=== PATIENT | female | born 1935 | race Two or more races ===

== ENCOUNTER 2018-12-16 06:53 | Inpatient (IN) | payer MEDICAID ==
[~2018-12-16] VITALS: Ht 188 cm; Wt 76.7 kg
[2018-12-16 07:01] VITALS: BP 174/97
[2018-12-16] MEDS ORDERED: TRAMADOL HCL100 M2 ORAL (07:07)
[2018-12-16] MEDS ORDERED: ZOFRAN ODT8 MG ORAL (07:07)
[2018-12-16] MEDS ORDERED: VITAMIN D400 INTLU ORAL (07:07)
[2018-12-16] MEDS ORDERED: BETHANECHOL CHL10 MG ORAL (07:07)
[2018-12-16] MEDS ORDERED: LOSARTAN POTASS50 MG ORAL (07:07)
[2018-12-16] MEDS ORDERED: BACLOFEN5 GM MC (07:07)
[2018-12-16] MEDS ORDERED: LOPERAMIDE2 MG PO (07:07)
[2018-12-16] MEDS ORDERED: AMLODIPINE BESYL5 MG ORAL (07:07)
[2018-12-16] MEDS ORDERED: TAMSULOSIN HCL0.4 MG ORAL (07:07)
--- NOTE | 2018-12-16 07:09 | Emergency Room Report ---
History of Present Illness General Chief Complaint: Dyspnea/Respdistress Source: Family Member Present Illness HPI 83-year-old female with a history of hypertension, type 2 diabetes mellitus, spinal tumors, as well as lower extremity weakness and urinary incontinence and chronic Nicolas catheter, since January 2018, presents with shortness of breath, diarrhea, nausea, vomiting one episode since yesterday, as well as poor by mouth intake and concerns for dehydration by daughter. Patient has no pain complaints, she's not been on recent antibiotics, and her Nicolas catheter was last changed about 2 weeks ago. Patient recently also underwent a cervical spine surgery for decompression of her mass and has had no complications from that, other than a sore throat, and she is already followed up with her surgeon in [place]. Patient denies any new weakness, fevers, chills, cough, and has tried loperamide for diarrhea with partial relief. Allergies: Coded Allergies: No Known Allergies (Unverified , 12/16/18) Patient History Past Medical History: see triage record Reviewed Nursing Documentation: PMH: Agreed; PSxH: Agreed Nursing Documentation-PMH Past Medical History: No Stated History Hx Hypertension: Yes Hx Diabetes: Yes Hx Neurological Problems: Yes - Brain tumor removed Nov 2013 Review of Systems All Other Systems: negative except mentioned in HPI Physical Exam Vital Signs Date Time Temp Pulse Resp B/P (MAP) Pulse Ox O2 Delivery O2 Flow Rate FiO2 12/16/18 06:53 99.1 102 20 174/97 100 Room Air Sp02 EP Interpretation: reviewed, normal General Appearance: no apparent distress, alert, non-toxic Head: normocephalic Eyes: bilateral eye normal inspection, bilateral eye PERRL, bilateral eye EOMI ENT: normal ENT inspection, hearing grossly normal, normal pharynx, no angioedema, normal voice, uvula midline, dry mucus membranes Neck: normal inspection, full range of motion, supple, supple/symm/no masses Respiratory: chest non-tender, lungs clear, normal breath sounds, no rhonchi, no respiratory distress, no retraction, speaking full sentences, chest symmetrical, palpation of chest normal Cardiovascular #1: normal peripheral pulses, regular rate, rhythm, no edema, no gallop, no JVD, no murmur, no rub Cardiovascular #2: 2+ radial (R), 2+ radial (L) Gastrointestinal: normal inspection, non tender, soft, no mass, no guarding, no rebound Rectal: deferred Genitourinary: normal inspection, no CVA tenderness Musculoskeletal: back normal, gait/station normal, normal range of motion, non- tender, no calf tenderness Neurologic: alert, responsive, detention worker III-XII nml as tested, motor strength/tone normal - decreased in B/L LE, sensory intact - decreased in B/L LE, speech normal Psychiatric: judgement/insight normal, memory normal, mood/affect normal Skin: normal color, no rash, warm/dry, normal turgor Lymphatic: no adenopathy Medical Decision Making ER Course Within the first hour of arrival patient had 30 mL per came IV fluid bolus, lactic acid, blood cultures, broad-spectrum gram-negative coverage initiated. At 7:20 AM patient remained here in stable upon repeat focused sepsis examination. She had her previous for catheter discontinued and a new one placed. Urinalysis was sent from the new Nicolas catheter collection bag. Patient is not having active diarrhea here. Workup unremarkable other than UTI and possible pulmonary htn. Patient had nicolas changed, abx (levaquin) given, urine cx sent. Will admit. EKG Diagnostic Results EKG Time: 07:36 EP Interpretation: no stemi Rate: normal Rhythm: NSR ST Segments: no acute changes ASA given to the pt in ED: Yes Rhythm Strip Diag. Results Rhythm Strip Time: 07:18 EP Interpretation: yes Rate: 100 Rhythm: NSR Chest X-Ray Diagnostic Results Chest X-Ray Diagnostic Results : Chest X-Ray Ordered: Yes # of Views/Limited/Complete: 1 View Indication: Shortness of Breath EP Interpretation: Yes Interpretation: no consolidation, no effusion, no pneumothorax, no acute cardiopulmonary disease Impression: No acute disease Electronically Signed by: Carlos Resendiz MD CT/MRI/US Diagnostic Results CT/MRI/US Diagnostic Results : Imaging Test Ordered: chest cta Impression negative for PE, mild atelectasis, no pna or fluid, prominent pulm arteries, concerning for pulm htn Last Vital Signs Date Time Temp Pulse Resp B/P (MAP) Pulse Ox O2 Delivery O2 Flow Rate FiO2 12/16/18 07:01 98.5 103 20 174/97 100 Room Air Disposition: ADMITTED INPATIENT Condition: Stable Referrals: NOT CHOSEN PAWAN/,REFERRING (PCP) CARLOS RESENDIZ M.D Dec 16, 2018 07:09
[2018-12-16 07:41] LABS: BASOPHILS % (AUTO) 2.5 % (0.0-2.0); HEMATOCRIT 34.4 % (37.0-47.0); HEMOGLOBIN 11.2 G/DL (12.0-16.0); LYMPHOCYTES % (AUTO) 35.6 % (20.0-45.0); MEAN CORPUSCULAR VOLUME 96 FL (80-99); PLATELET COUNT 676 K/UL (150-450); RED BLOOD COUNT 3.59 M/UL (4.20-5.40); RED CELL DISTRIBUTION WIDTH 13.6 % (11.6-14.8); WHITE BLOOD COUNT 4.5 K/UL (4.8-10.8)
[2018-12-16 07:43] LABS: APPEARANCE,URINE VERY CLOUDY; BILIRUBIN, URINE NEGATIVE (NEGATIVE); COLOR,URINE PALE YELLOW; GLUCOSE, URINE (UA) NEGATIVE (NEGATIVE); KETONES,URINE 3+ (NEGATIVE); LEUKOCYTE ESTERASE ,URINE 3+ (NEGATIVE); NITRITE,URINE NEGATIVE (NEGATIVE); PH,URINE 9 (4.5-8.0); PROTEIN,URINE 3+ (NEGATIVE); UROBILINOGEN,URINE NORMAL MG/DL (0.0-1.0)
[2018-12-16 08:12] LABS: ANION GAP 10 mmol/L (5-15); BLOOD UREA NITROGEN 12 mg/dL (7-18); CALCIUM 8.8 MG/DL (8.5-10.1); CARBON DIOXIDE 25 MMOL/L (21-32); CHLORIDE 98 MMOL/L (98-107); CREATININE 0.4 MG/DL (0.55-1.30); POTASSIUM 4.7 MMOL/L (3.5-5.1); SODIUM 132 MMOL/L (136-145)
[2018-12-16 08:26] LABS: ALANINE AMINOTRANSFERASE 13 U/L (12-78); ALBUMIN 2.7 G/DL (3.4-5.0); ALBUMIN/GLOBULIN RATIO 0.7 (1.0-2.7); ALKALINE PHOSPHATASE 94 U/L (46-116); ASPARTATE AMINO TRANSFERASE 23 U/L (15-37); BILIRUBIN,TOTAL 0.5 MG/DL (0.2-1.0); CKMB 0.6 NG/ML (0.0-3.6); CREATINE KINASE 51 U/L (26-308)
[2018-12-16 08:33] VITALS: BP 146/71
[2018-12-16] MEDS ORDERED: Isovue-370 150ml vial INJ PRN (08:45)
[2018-12-16] MEDS ORDERED: LORazepam Inj 2mg/ml 1ml IV ONE (09:00)
[2018-12-16 10:32] VITALS: BP 109/49
--- NOTE | 2018-12-16 11:20 | Diagnostic Imaging Report ---
ndication: Shortness of breath Technique: IV administration nonionic contrast. Spiral acquisitions obtained from the lung bases to the lung apices. Multiplanar and 3-D reconstructions were generated. Total dose length product 989.54 mGycm. CTDIvol(s) 30.37,28.48 mGy. Dose reduction achieved using automated exposure control Comparison: none Findings: There is considerable respiratory motion artifact and suboptimal opacification of the distal pulmonary arteries, precluding exclusion of peripheral pulmonary emboli. Prominent right hilar tissue is seen. This is probably extraluminal, but may narrow proximal upper lobe vessels and could conceivably be on the wall of the artery. No definite central large vessel pulmonary emboli are evident otherwise. The main pulmonary artery is dilated, measuring up to 40 mm in diameter. The right and left pulmonary arteries are ectatic but not frankly dilated. The heart is mildly enlarged, but right ventricular dilatation is evident. No thoracic aortic aneurysm or dissection. Normal branching anatomy of the great neck vessels. Lungs demonstrate equivocal mild upper lobe interstitial prominence there is some atelectasis at the lung bases. Evaluation of the lung bases is otherwise limited due to the motion artifact. No effusions. Note dense consolidation. No gross masses. There is minimal pericardial thickening. There is a small to moderate-sized sliding-type hiatal hernia. No mediastinal or hilar mass or adenopathy. There are coronary artery calcifications. The included portion of the thyroid is unremarkable. No axillary or chest wall mass or adenopathy. The included upper abdominal anatomy is unremarkable except for considerable colonic fecal burden Impression: Limited exam, as described, due to respiratory motion and suboptimal contrast bolus No definite evidence of acute pulmonary embolus. Prominent tissue in the right pulmonary hilum appears to slightly narrow the upper lobe pulmonary artery. Suspect that this is extraluminal but all focus of wall adherent chronic pulmonary embolus is not completely excludable. Ectatic borderline dilated pulmonary arteries, raising concern for pulmonary arterial hypertension Borderline cardiomegaly No definite acute pulmonary process, although evaluation for such is limited due to motion artifact. Minimal pericardial thickening. Small to moderate-sized sliding-type hiatal hernia The CT scanner at [facility] is accredited by the [employer] and the scans are performed using protocols designed to limit radiation exposure to as low as reasonably achievable to attain images of sufficient resolution adequate for diagnostic evaluation.
--- NOTE | 2018-12-16 11:49 | Diagnostic Imaging Report ---
Indication: Shortness of breath Technique: One view of the chest Comparison: none Findings: Heart is enlarged. The aorta is tortuous and ectatic. Degenerative changes of both shoulders are noted. The lungs and pleural spaces are clear Impression: No acute process
[2018-12-16] MEDS ORDERED: Albuterol/Ipratropium 3ml neb HHN PRN (12:15)
[2018-12-16] MEDS ORDERED: Miralax 17gm pkt ORAL PRN (12:15)
[2018-12-16] MEDS ORDERED: Morphine Sulfate 4mg/ml Inj (IV/IM USE ONLY) IVP PRN (12:15)
[2018-12-16 13:11] VITALS: BP 134/68
--- NOTE | 2018-12-16 15:19 | Cardiology Report ---
APPROVED REPORT EKG Measurement Heart [id number] DC [id number] Sinus rhythm with premature atrial complexes Left axis deviation Possible Lateral infarct, age undetermined Abnormal ECG
[2018-12-16] MEDS ORDERED: Cefepime HCl 2 GM in D5W 110 ML IV SCH (16:00)
--- NOTE | 2018-12-16 17:21 | History & Physical ---
History and Physical History & Physicial Dictated for Int Med-Dr Olivares no. [id number]. Devin Rojas MD Dec 16, 2018 17:21
--- NOTE | 2018-12-16 20:15 | History and Physical Report ---
DATE OF ADMISSION: 12/16/2018 CHIEF COMPLAINT: The patient is an 83-year-old female, who presents with chief complaint of nausea, constipation and shortness of breath. HISTORY OF PRESENT ILLNESS: The patient was admitted to [facility]. The patient is status post resection of cervical spine tumor on 11/29/2018. The patient states she has been constipated since the 29 of November. The patient then had several days of diarrhea last week. The patient has not had a bowel movement in the last two days. This morning, the patient began to experience shortness of breath. The patient has a history of indwelling Mahajan catheter since August 2018. The patient presents with a chief complaint of shortness of breath, constipation, and nausea. REVIEW OF SYSTEMS: CONSTITUTIONAL: The patient denies weight loss or weight gain. The patient denies fevers or chills. HEENT: The patient denies ear or throat pain. The patient denies headache. CARDIOVASCULAR: The patient denies palpitations or chest pain. CHEST: The patient complains of shortness of breath as above. The patient denies wheezes. ABDOMEN: The patient complains of constipation and nausea. The patient has had alternating constipation and diarrhea. GENITOURINARY: The patient has an indwelling Mahajan catheter. The patient denies dysuria or increased frequency of urination. NEUROMUSCULAR: The patient complains of bilateral lower extremity weakness secondary to cervical spine tumor as above. The patient denies seizures or generalized weakness. PAST MEDICAL HISTORY: Significant for: 1. Cervical spine tumor as above. 2. Diabetes type 2. 3. Hypertension. PAST SURGICAL HISTORY: Significant for resection of cervical spine tumor on 11/29/2018. CURRENT MEDICATIONS: 1. Baclofen 10 mg p.o. daily. 2. Bethanechol 25 mg p.o. three times daily. 3. Amlodipine 5 mg p.o. daily. 4. Losartan 50 mg p.o. daily. 5. Flomax 0.4 mg p.o. daily. ALLERGIES: No known drug allergies. SOCIAL HISTORY: The patient is single and lives with her grown daughter, who is at the bedside. The patient denies tobacco or alcohol use. PHYSICAL EXAMINATION: VITAL SIGNS: Temperature 99.1, respirations 20, pulse 102, and blood pressure 174/97. GENERAL: The patient is a well-developed and well-nourished female, in no apparent distress. HEENT: Eyes, pupils are equal and responsive to light and accommodation. Extraocular movements are intact. NECK: Supple without lymphadenopathy. CHEST: Lungs are clear to auscultation bilaterally without wheezes or rales. CARDIOVASCULAR: Regular rate. S1 and S2 normal without murmurs, rubs, or gallops. ABDOMEN: Soft, slightly distended with decreased bowel sounds. No evidence of hepatosplenomegaly. Currently, no rebound or guarding noted. EXTREMITIES: Negative for clubbing, cyanosis, or edema. RECTAL/GENITAL: Refused. NEUROLOGIC: Cranial nerves II through XII are grossly intact without focal deficits. Motor strength is 5/5 bilaterally. Deep tendon reflexes are 2+ plantar. LABORATORY STUDIES: WBC 4.5, hemoglobin 11.2, hematocrit 34.4, and platelets 676,000. Sodium 132, potassium 4.7, chloride 98, CO2 25, BUN 12, and creatinine 0.4. Glucose 132. Troponin is 0.004. BNP 144. Chest x-ray was reported as no acute disease. CT angio of the chest failed to demonstrate pulmonary embolus. ASSESSMENT: This is an 83-year-old female with: 1. Urinary tract infection. 2. Shortness of breath. 3. Constipation. 4. Nausea. 5. Diabetes. 6. Hypertension. 7. Cervical spine tumor, status post resection. TREATMENT: 1. Urinary tract infection. The patient has been placed empirically on Levaquin, cefepime, and vancomycin. An Infectious Disease consultation has been obtained with Dr. Arndt. Await urine cultures. 2. Constipation/nausea. A Gastroenterology consultation has been obtained with Dr. Mario Addison. A KUB is pending. We will follow recommendations of Gastroenterology. 3. Diabetes. A NovoLog sliding scale has been instituted. 4. Hypertension. Continue losartan and amlodipine as above. 5. Cervical spine tumor. The patient is status post resection on 11/29/2018. Devin Rojas M.D. DR: COURTNEY JOB#: [id number] CC:
[2018-12-16] MEDS: Tamsulosin 0.4mg cap ORAL SCH (20:37)
[2018-12-16] MEDS: Heparin 5000 units/ml inj SUBQ SCH (20:39)
[2018-12-16 21:00] VITALS: BP 142/64
[2018-12-16 23:48] LABS: APPEARANCE,URINE CLEAR; BILIRUBIN, URINE NEGATIVE (NEGATIVE); COLOR,URINE PALE YELLOW; GLUCOSE, URINE (UA) NEGATIVE (NEGATIVE); KETONES,URINE NEGATIVE (NEGATIVE); LEUKOCYTE ESTERASE ,URINE NEGATIVE (NEGATIVE); NITRITE,URINE NEGATIVE (NEGATIVE); PH,URINE 7 (4.5-8.0); PROTEIN,URINE NEGATIVE (NEGATIVE); UROBILINOGEN,URINE NORMAL MG/DL (0.0-1.0)
[2018-12-17] VITALS: BP 138/61
[2018-12-17 04:00] VITALS: BP 118/69
[2018-12-17 07:07] LABS: BASOPHILS % (AUTO) 2.5 % (0.0-2.0); EOSINOPHILS % (AUTO) 2.8 % (0.0-3.0); HEMATOCRIT 30.6 % (37.0-47.0); HEMOGLOBIN 10.2 G/DL (12.0-16.0); LYMPHOCYTES % (AUTO) 29.2 % (20.0-45.0); MEAN CORPUSCULAR VOLUME 96 FL (80-99); MONOCYTES % (AUTO) 9.6 % (1.0-10.0); PLATELET COUNT 701 K/UL (150-450); RED BLOOD COUNT 3.18 M/UL (4.20-5.40); RED CELL DISTRIBUTION WIDTH 14.1 % (11.6-14.8); WHITE BLOOD COUNT 3.7 K/UL (4.8-10.8)
[2018-12-17 07:09] LABS: ALANINE AMINOTRANSFERASE 12 U/L (12-78); ALBUMIN 2.4 G/DL (3.4-5.0); ALBUMIN/GLOBULIN RATIO 0.7 (1.0-2.7); ALKALINE PHOSPHATASE 88 U/L (46-116); ANION GAP 10 mmol/L (5-15); ASPARTATE AMINO TRANSFERASE 13 U/L (15-37); BILIRUBIN,TOTAL 0.4 MG/DL (0.2-1.0); BLOOD UREA NITROGEN 8 mg/dL (7-18); CALCIUM 8.4 MG/DL (8.5-10.1); CARBON DIOXIDE 24 MMOL/L (21-32); CHLORIDE 102 MMOL/L (98-107); CREATININE 0.5 MG/DL (0.55-1.30); POTASSIUM 3.7 MMOL/L (3.5-5.1); SODIUM 136 MMOL/L (136-145)
--- NOTE | 2018-12-17 07:55 | Consultation ---
History of Present Illness General Date patient seen: Dec 17, 2018 Chief Complaint: Dyspnea/Respdistress Reason for Consultation: UTI Present Illness HPI Ms Garcia is a 83 yo female with PMHx of DM, HTN and a Cervical spinal tumor s/p resection 11/29/18 who presented to the ED on 12/16/18 with SOB, nausea and constipation. She appentely had not had a BM for 2 days but did yesterday after admit. She also reports having diarrhea a week ago. She is incontinent of urine and feces has a chronic indwelling nicolas catheter. Her SOB started yesterday morning. She also problems with Diabetes medications and some weakness and syncope. Unclear if she had low blood sugar. She reports no fever, Chills, abdominal pain or bleeding. In the ED she had a negative CXR, CTA chest and was aferbile without any leukocytosis. Her UA was positive witn 20-30 WBCs and LE. Neck pain from surgery controlled. ID was consulted for UTI PMHx/PSHx DM HTN Cervical spinal tumor s/p resection 11/29/18 SocHx No E/T/D FamHx Not contributory Allergies: Coded Allergies: No Known Allergies (Unverified , 12/16/18) Medication History Scheduled Amlodipine Besylate* (Amlodipine Besylate*), 5 MG ORAL DAILY, (Reported) Bethanechol* (Bethanechol*), 25 MG ORAL THREE TIMES A DAY, (Reported) Losartan Potassium* (Losartan Potassium*), 50 MG ORAL DAILY, (Reported) Tamsulosin Hcl (Tamsulosin Hcl*), 0.4 MG ORAL BEDTIME, (Reported) Tramadol Hcl (Tramadol Hcl), 50 MG ORAL DAILY, (Reported) Vitamin D (Vitamin D3), 1,000 UNITS ORAL DAILY, (Reported) Scheduled PRN Ondansetron Odt* (Zofran Odt*), 4 MG ORAL Q6H PRN for Nausea & Vomiting, ( Reported) Miscellaneous Medications Baclofen (Baclofen), 10 GM MC, (Reported) Loperamide Hcl (Loperamide), 2 MG PO, (Reported) Patient History Healthcare decision maker Resuscitation status Advanced Directive on File Review of Systems ROS Narrative 12 point ROS negative except as note in the HPI. Physical Exam Last 24 Hour Vital Signs Date Time Temp Pulse Resp B/P (MAP) Pulse Ox O2 Delivery O2 Flow Rate FiO2 12/17/18 04:00 98.8 96 17 118/69 (85) 99 96 12/17/18 04:00 96 12/17/18 00:00 95 12/17/18 00:00 98.6 77 18 138/61 (86) 96 77 12/16/18 21:00 99.1 72 17 142/64 (90) 98 72 12/16/18 21:00 Nasal Cannula 2.0 12/16/18 20:00 98 12/16/18 17:18 98.2 88 20 127/62 100 Nasal Cannula 1.0 12/16/18 16:00 91 12/16/18 14:49 Nasal Cannula 2.0 12/16/18 14:47 91 12/16/18 13:11 98.3 82 20 134/68 100 Nasal Cannula 1.0 12/16/18 10:32 98.8 96 16 109/49 100 Nasal Cannula 1.0 12/16/18 08:33 98.8 97 24 146/71 100 Room Air Intake and Output 12/16/18 12/17/18 18:59 06:59 Intake Total 2700 ml 515 ml Output Total 1600 ml 1200 ml Balance 1100 ml -685 ml Intake Oral 250 ml 140 ml IV Total 2450 ml 375 ml Output Urine Total 1600 ml 1200 ml # Bowel Movements 1 Laboratory Tests Test 12/16/18 22:00 12/17/18 06:14 Urine Color Pale yellow Urine Appearance Clear Urine pH 7 (4.5-8.0) Urine Specific [place] 1.005 (1.005-1.035) Urine Protein Negative (NEGATIVE) Urine Glucose (UA) Negative (NEGATIVE) Urine Ketones Negative (NEGATIVE) Urine Blood Negative (NEGATIVE) Urine Nitrite Negative (NEGATIVE) Urine Bilirubin Negative (NEGATIVE) Urine Urobilinogen Normal MG/DL (0.0-1.0) Urine Leukocyte Esterase Negative (NEGATIVE) Urine RBC 0-2 /HPF (0 - 2) Urine WBC 0-2 /HPF (0 - 2) Urine Squamous Epithelial Cells Few /LPF (NONE/OCC) Urine Bacteria None /HPF (NONE) White Blood Count 3.7 K/UL (4.8-10.8) L Red Blood Count 3.18 M/UL (4.20-5.40) L Hemoglobin 10.2 G/DL (12.0-16.0) L Hematocrit 30.6 % (37.0-47.0) L Mean Corpuscular Volume 96 FL (80-99) Mean Corpuscular Hemoglobin 32.0 PG (27.0-31.0) H Mean Corpuscular Hemoglobin Concent 33.3 G/DL (32.0-36.0) Red Cell Distribution Width 14.1 % (11.6-14.8) Platelet Count 701 K/UL (150-450) H Mean Platelet Volume 3.9 FL (6.5-10.1) L Neutrophils (%) (Auto) 56.0 % (45.0-75.0) Lymphocytes (%) (Auto) 29.2 % (20.0-45.0) Monocytes (%) (Auto) 9.6 % (1.0-10.0) Eosinophils (%) (Auto) 2.8 % (0.0-3.0) Basophils (%) (Auto) 2.5 % (0.0-2.0) H Sodium Level 136 MMOL/L (136-145) Potassium Level 3.7 MMOL/L (3.5-5.1) Chloride Level 102 MMOL/L (98-107) Carbon Dioxide Level 24 MMOL/L (21-32) Anion Gap 10 mmol/L (5-15) Blood Urea Nitrogen 8 mg/dL (7-18) Creatinine 0.5 MG/DL (0.55-1.30) L Estimat Glomerular Filtration Rate mL/min (>60) Glucose Level 113 MG/DL (74-106) H Calcium Level 8.4 MG/DL (8.5-10.1) L Total Bilirubin 0.4 MG/DL (0.2-1.0) Aspartate Amino Transf (AST/SGOT) 13 U/L (15-37) L Alanine Aminotransferase (ALT/SGPT) 12 U/L (12-78) Alkaline Phosphatase 88 U/L (46-116) Total Protein 5.7 G/DL (6.4-8.2) L Albumin 2.4 G/DL (3.4-5.0) L Globulin 3.3 g/dL Albumin/Globulin Ratio 0.7 (1.0-2.7) L Height (Feet): 5 Height (Inches): 2.00 Weight (Pounds): 170 Medications Current Medications Medications (Trade) Dose Ordered Sig/Luda Route PRN Reason Start Time Stop Time Status Last Admin Dose Admin Acetaminophen (Tylenol) 650 mg Q4H PRN ORAL fever (temp>100.5F) 12/16/18 12:15 01/15/19 12:14 Al Hydroxide/Mg Hydroxide (Mylanta) 15 ml Q6H PRN ORAL Abdominal cramps 12/16/18 22:15 01/15/19 22:14 12/16/18 22:40 Albuterol/ Ipratropium (Albuterol/ Ipratropium) 3 ml Q4H PRN HHN Shortness of Breath 12/16/18 12:15 12/21/18 12:14 Amlodipine Besylate (Norvasc) 5 mg DAILY ORAL 12/17/18 09:00 01/16/19 08:59 Cefepime HCl 2 gm/ Dextrose 110 ml @ 220 mls/hr Q24H IV 12/16/18 16:00 12/23/18 15:59 12/16/18 17:52 Heparin Sodium (Porcine) (Heparin 5000 units/ml) 5,000 units EVERY 12 HOURS SUBQ 12/16/18 21:00 01/15/19 20:59 12/16/18 20:39 Losartan Potassium (Cozaar) 50 mg DAILY ORAL 12/17/18 09:00 01/16/19 08:59 Morphine Sulfate (Morphine Sulfate) 2 mg Q4H PRN IVP Moderate Pain (Pain Scale 4-6) 12/16/18 12:15 12/23/18 12:14 Ondansetron HCl (Zofran) 4 mg Q6H PRN IVP Nausea & Vomiting 12/16/18 12:15 01/15/19 12:14 Pantoprazole (Protonix) 40 mg DAILY ORAL 12/16/18 22:15 01/15/19 22:14 12/16/18 22:40 Phenazopyridine HCl (Pyridium) 100 mg DAILYPRN PRN ORAL dysuria 12/16/18 12:15 01/15/19 12:14 Polyethylene Glycol (Miralax) 17 gm DAILYPRN PRN ORAL Constipation 12/16/18 12:15 01/15/19 12:14 Sodium Chloride 1,000 ml @ 75 mls/hr [id number] IV 12/16/18 17:30 01/15/19 17:29 12/17/18 05:35 Tamsulosin HCl (Flomax) 0.4 mg BEDTIME ORAL 12/16/18 21:00 01/15/19 20:59 12/16/18 20:37 Temazepam (Restoril) 15 mg HSPRN PRN ORAL Insomnia 12/16/18 12:15 12/23/18 12:14 12/16/18 20:43 Vancomycin HCl (Vanco rx to dose) 1 ea DAILY PRN MISC PER PHARMACY 12/16/18 14:00 01/15/19 13:59 Vancomycin HCl 1 gm/Dextrose 275 ml @ 183.3 mls/ hr Q24H IVPB 12/17/18 18:00 12/22/18 17:59 Objective Narrative Gen: NAD, well appearing, alert HEENT: NCAT, MMM, EOMI, PERRL, No Oral lesion, no scleral icterus, Neck surgical site C/D/I NECK: full range of motion, supple, no meningismus, No LAD, No JVD LUNGS: CTAB, No W/C, No Accessory muscle use CARDS: RRR, S1, S2, No M/R/G, ABD: Soft, NT, ND, No R/G, + BS, No HSM, No Masses : nicolas in place Ext: C/C/E, Pulses 2+ B/L (DP, Rad): NEURO: A/O x 4, Strength and Sensation Grossly intact PSYCH: Mood/affect normal SKIN: Warm/dry, No rashes Assessment/Plan Assessment/Plan 83 yo female with PMHx of DM, HTN and a 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 UTI UA (+) some weakness and presyncope Likely from blood sugar but given Positive UA will treat for UTI. Indwelling nicolas changed in the ED UCx Pending No Leukocytosis No fever Incontinent Intermittent Constipation/diarrhea Had BM yesterday DM HTN Plan - Start Ceftriaxone #1 - 12/17/18 SP Cefepime #1 and Vancomycin #1 - Monitor CBC and temps - f/u Cultures Thank you for this consult. We will continue to follow the patient during this hospitalization. Mark Lozano MD Dec 17, 2018 07:55
[2018-12-17 08:00] VITALS: BP 161/94
[2018-12-17] MEDS: Heparin 5000 units/ml inj SUBQ SCH ×2 (08:32→21:03)
[2018-12-17] MEDS ORDERED: Losartan 50mg tab ORAL SCH (09:00)
--- NOTE | 2018-12-17 10:58 | GI Initial Consult Note ---
History of Present Illness General Date patient seen: Dec 17, 2018 Time patient seen: 10:52 Reason for Hospitalization: Dyspnea/Respdistress Referring physician: JOVITA NAILS Reason for Consultation: Nausea / Diarrhea Present Illness HPI 83-year-old female with a history of hypertension, type 2 diabetes mellitus, spinal tumors, as well as lower extremity weakness and urinary incontinence and chronic Mahajan catheter, since January 2018, presents with shortness of breath, diarrhea, nausea, vomiting one episode since yesterday, as well as poor by mouth intake and concerns for dehydration by daughter. Patient has no pain complaints, she's not been on recent antibiotics, and her Mahajan catheter was last changed about 2 weeks ago. Patient recently also underwent a cervical spine surgery for decompression of her mass and has had no complications from that, other than a sore throat, and she is already followed up with her surgeon in [place]. Patient denies any new weakness, fevers, chills, cough, and has tried loperamide for diarrhea with partial relief. GI consulted for reports of nausea and diarrhea. Patient seen, awake alert and oriented x4 no apparent distress with daughter at bedside. The family reported that the patient had approximately 1 week of diarrhea, denied any hematochezia or melena and states that it has resolved at this. The patient underwent cervical spine surgery approximately 1 week ago, had complaint of nausea with vomiting most likely due to postoperative nature. Denies any hemataemesis or coffee-ground. Patient reported one formed BMs today. Patient states she has a history of endoscopic colonoscopy approximately 2 years ago, unsure of the results at this time. Labs reviewed, patient presents today with normocytic anemia. Home Meds Reported Medications Loperamide Hcl (LOPERAMIDE) 2 Mg Capsule, 2 MG PO, CAP 12/16/18 Tamsulosin Hcl (TAMSULOSIN HCL*) 0.4 Mg Cap.er.24h, 0.4 MG ORAL BEDTIME, CAP 12/16/18 Baclofen (BACLOFEN) 5 Gm Powder, 10 GM MC, GM 12/16/18 Amlodipine Besylate* (AMLODIPINE BESYLATE*) 5 Mg Tablet, 5 MG ORAL DAILY, TAB 12/16/18 Losartan Potassium* (LOSARTAN POTASSIUM*) 50 Mg Tablet, 50 MG ORAL DAILY, TAB 12/16/18 Tramadol Hcl (TRAMADOL HCL) 100 Mg Tab.er.24h, 50 MG ORAL DAILY, TAB 12/16/18 Bethanechol* (BETHANECHOL*) 10 Mg Tablet, 25 MG ORAL THREE TIMES A DAY, TAB 12/16/18 Ondansetron Odt* (ZOFRAN ODT*) 8 Mg Tab.rapdis, 4 MG ORAL Q6H PRN for Nausea & Vomiting, #30 TAB 12/16/18 Vitamin D (Vitamin D3) 400 Unit Tablet, 1000 UNITS ORAL DAILY, TAB 12/16/18 Med list reviewed/reconciled: Yes Allergies: Coded Allergies: No Known Allergies (Unverified , 12/16/18) Patient History PMH Narrative Past Medical History: see triage record Reviewed Nursing Documentation: PMH: Agreed; PSxH: Agreed Nursing Documentation-PMH Past Medical History: No Stated History Hx Hypertension: Yes Hx Diabetes: Yes Hx Neurological Problems: Yes - Brain tumor removed Nov 2013 Social History: Denies: smoking, alcohol use, drug use, other Review of Systems All Other Systems: negative except mentioned in HPI Physical Exam Vital Signs Date Time Temp Pulse Resp B/P (MAP) Pulse Ox O2 Delivery O2 Flow Rate FiO2 12/16/18 06:53 99.1 102 20 174/97 100 Room Air 12/16/18 10:32 1.0 Sp02 EP Interpretation: reviewed, normal Labs Laboratory Tests Test 12/16/18 22:00 12/17/18 06:14 Urine Color Pale yellow Urine Appearance Clear Urine pH 7 (4.5-8.0) Urine Specific [place] 1.005 (1.005-1.035) Urine Protein Negative (NEGATIVE) Urine Glucose (UA) Negative (NEGATIVE) Urine Ketones Negative (NEGATIVE) Urine Blood Negative (NEGATIVE) Urine Nitrite Negative (NEGATIVE) Urine Bilirubin Negative (NEGATIVE) Urine Urobilinogen Normal MG/DL (0.0-1.0) Urine Leukocyte Esterase Negative (NEGATIVE) Urine RBC 0-2 /HPF (0 - 2) Urine WBC 0-2 /HPF (0 - 2) Urine Squamous Epithelial Cells Few /LPF (NONE/OCC) Urine Bacteria None /HPF (NONE) White Blood Count 3.7 K/UL (4.8-10.8) L Red Blood Count 3.18 M/UL (4.20-5.40) L Hemoglobin 10.2 G/DL (12.0-16.0) L Hematocrit 30.6 % (37.0-47.0) L Mean Corpuscular Volume 96 FL (80-99) Mean Corpuscular Hemoglobin 32.0 PG (27.0-31.0) H Mean Corpuscular Hemoglobin Concent 33.3 G/DL (32.0-36.0) Red Cell Distribution Width 14.1 % (11.6-14.8) Platelet Count 701 K/UL (150-450) H Mean Platelet Volume 3.9 FL (6.5-10.1) L Neutrophils (%) (Auto) 56.0 % (45.0-75.0) Lymphocytes (%) (Auto) 29.2 % (20.0-45.0) Monocytes (%) (Auto) 9.6 % (1.0-10.0) Eosinophils (%) (Auto) 2.8 % (0.0-3.0) Basophils (%) (Auto) 2.5 % (0.0-2.0) H Sodium Level 136 MMOL/L (136-145) Potassium Level 3.7 MMOL/L (3.5-5.1) Chloride Level 102 MMOL/L (98-107) Carbon Dioxide Level 24 MMOL/L (21-32) Anion Gap 10 mmol/L (5-15) Blood Urea Nitrogen 8 mg/dL (7-18) Creatinine 0.5 MG/DL (0.55-1.30) L Estimat Glomerular Filtration Rate mL/min (>60) Glucose Level 113 MG/DL (74-106) H Calcium Level 8.4 MG/DL (8.5-10.1) L Total Bilirubin 0.4 MG/DL (0.2-1.0) Aspartate Amino Transf (AST/SGOT) 13 U/L (15-37) L Alanine Aminotransferase (ALT/SGPT) 12 U/L (12-78) Alkaline Phosphatase 88 U/L (46-116) Total Protein 5.7 G/DL (6.4-8.2) L Albumin 2.4 G/DL (3.4-5.0) L Globulin 3.3 g/dL Albumin/Globulin Ratio 0.7 (1.0-2.7) L General Appearance: well appearing, no apparent distress, alert Head: normocephalic EENT: PERRL/EOMI, normal ENT inspection Neck: supple Respiratory: normal breath sounds, no respiratory distress Cardiovascular: normal rate Gastrointestinal: normal inspection, non tender, soft, normal bowel sounds, non -distended Rectal: deferred Genitourinary: no CVA tenderness Musculoskeletal: normal inspection, back normal Neurologic: normal inspection, alert, oriented x3, responsive Psychiatric: normal inspection, judgement/insight normal, memory normal Skin: normal inspection, normal color, no rash, warm/dry, palpation normal, well hydrated Lymphatic: normal inspection, no adenopathy Current Medications Current Medications Medications (Trade) Dose Ordered Sig/Luda Route PRN Reason Start Time Stop Time Status Last Admin Dose Admin Acetaminophen (Tylenol) 650 mg Q4H PRN ORAL fever (temp>100.5F) 12/16/18 12:15 01/15/19 12:14 Al Hydroxide/Mg Hydroxide (Mylanta) 15 ml Q6H PRN ORAL Abdominal cramps 12/16/18 22:15 01/15/19 22:14 12/16/18 22:40 Albuterol/ Ipratropium (Albuterol/ Ipratropium) 3 ml Q4H PRN HHN Shortness of Breath 12/16/18 12:15 12/21/18 12:14 Amlodipine Besylate (Norvasc) 5 mg DAILY ORAL 12/17/18 09:00 01/16/19 08:59 12/17/18 08:28 Docusate Sodium (Colace) 100 mg THREE TIMES A DAY ORAL 12/17/18 13:00 01/16/19 12:59 Heparin Sodium (Porcine) (Heparin 5000 units/ml) 5,000 units EVERY 12 HOURS SUBQ 12/16/18 21:00 01/15/19 20:59 12/17/18 08:32 Losartan Potassium (Cozaar) 50 mg DAILY ORAL 12/17/18 09:00 01/16/19 08:59 12/17/18 08:28 Morphine Sulfate (Morphine Sulfate) 2 mg Q4H PRN IVP Moderate Pain (Pain Scale 4-6) 12/16/18 12:15 12/23/18 12:14 Ondansetron HCl (Zofran) 4 mg Q6H PRN IVP Nausea & Vomiting 12/16/18 12:15 01/15/19 12:14 2/1/19 10:01 Pantoprazole (Protonix) 40 mg DAILY ORAL 12/16/18 22:15 01/15/19 22:14 12/17/18 08:28 Phenazopyridine HCl (Pyridium) 100 mg DAILYPRN PRN ORAL dysuria 12/16/18 12:15 01/15/19 12:14 Polyethylene Glycol (Miralax) 17 gm BEDTIME ORAL 12/17/18 21:00 01/16/19 20:59 Polyethylene Glycol (Miralax) 17 gm DAILYPRN PRN ORAL Constipation 12/16/18 12:15 01/15/19 12:14 Sodium Chloride 1,000 ml @ 75 mls/hr [id number] IV 12/16/18 17:30 01/15/19 17:29 12/17/18 05:35 Tamsulosin HCl (Flomax) 0.4 mg BEDTIME ORAL 12/16/18 21:00 01/15/19 20:59 12/16/18 20:37 Temazepam (Restoril) 15 mg HSPRN PRN ORAL Insomnia 12/16/18 12:15 12/23/18 12:14 12/16/18 20:43 GI: Plan Problems: (1) Normocytic anemia (2) Nausea (3) Dehydration (4) Electrolyte imbalance (5) Diarrhea Plan We will send for stool studies, C. difficile to rule out infectious colitis. Okay to advance diet as tolerated Zofran as needed P.o. IV hydration plus electrolyte correction anemia work up OB stool r/o GI bleed monitor H&H, prn transfusions bowel regime >> MiraLAX as needed ppi fu labs Will consider endoscopy if necessary Discussed with Dr. Addison. Thank you for this patient referral, we will follow. The patient was seen and examined at bedside and all new and available data was reviewed in the patients chart. I agree with the above findings, impression and plan. (Patient seen earlier today. Signature stamp does not reflect patient encounter time.). - MD Yaritza Holman,[facility] [employer] Dec 17, 2018 10:58
[2018-12-17] MEDS ORDERED: Miralax 17gm pkt ORAL PRN (11:00)
[2018-12-17 12:00] VITALS: BP 118/73
--- NOTE | 2018-12-17 12:11 | Consultation ---
History of Present Illness General Date patient seen: Dec 17, 2018 Chief Complaint: Dyspnea/Respdistress Referring physician: JOVITA NAILS Reason for Consultation: Nausea / Diarrhea Present Illness HPI 83 yo female with PMHx of DM, HTN and a Cervical spinal tumor s/p recent resection presented to the ED with CC of SOB. Her SOB started yesterday morning. She reports no fever, hills, abdominal pain or bleeding. In the ED she had a negative CXR, and CTA chest was negative for PE. She also reports having diarrhea a week ago. She is incontinent of urine has a chronic indwelling Mahajan catheter. Allergies: Coded Allergies: No Known Allergies (Unverified , 12/16/18) Medication History Scheduled Amlodipine Besylate* (Amlodipine Besylate*), 5 MG ORAL DAILY, (Reported) Bethanechol* (Bethanechol*), 25 MG ORAL THREE TIMES A DAY, (Reported) Losartan Potassium* (Losartan Potassium*), 50 MG ORAL DAILY, (Reported) Tamsulosin Hcl (Tamsulosin Hcl*), 0.4 MG ORAL BEDTIME, (Reported) Tramadol Hcl (Tramadol Hcl), 50 MG ORAL DAILY, (Reported) Vitamin D (Vitamin D3), 1,000 UNITS ORAL DAILY, (Reported) Scheduled PRN Ondansetron Odt* (Zofran Odt*), 4 MG ORAL Q6H PRN for Nausea & Vomiting, ( Reported) Miscellaneous Medications Baclofen (Baclofen), 10 GM MC, (Reported) Loperamide Hcl (Loperamide), 2 MG PO, (Reported) Patient History Healthcare decision maker Resuscitation status Advanced Directive on File Past Medical/Surgical History Past Medical/Surgical History: (1) Diabetes mellitus (2) HTN (hypertension) (3) Obesity (4) Incontinence Review of Systems All Other Systems: negative except mentioned in HPI Physical Exam General Appearance: WD/WN Lines, tubes and drains: peripheral HEENT: normocephalic, atraumatic Neck: non-tender, normal alignment Respiratory/Chest: chest wall non-tender, lungs clear Breasts: no masses Cardiovascular/Chest: normal peripheral pulses Abdomen: normal bowel sounds, non tender Genitourinary/Rectal: normal genital exam Extremities: normal range of motion Skin Exam: normal pigmentation Neurologic: heat treat worker II-XII grossly normal Last 24 Hour Vital Signs Date Time Temp Pulse Resp B/P (MAP) Pulse Ox O2 Delivery O2 Flow Rate FiO2 12/17/18 09:00 Nasal Cannula 2.0 12/17/18 08:28 161/94 12/17/18 08:28 116 161/94 12/17/18 08:00 97.7 116 17 161/94 (116) 99 96 12/17/18 08:00 100 12/17/18 04:00 98.8 96 17 118/69 (85) 99 96 12/17/18 04:00 96 12/17/18 00:00 95 12/17/18 00:00 98.6 77 18 138/61 (86) 96 77 12/16/18 21:00 99.1 72 17 142/64 (90) 98 72 12/16/18 21:00 Nasal Cannula 2.0 12/16/18 20:00 98 12/16/18 17:18 98.2 88 20 127/62 100 Nasal Cannula 1.0 12/16/18 16:00 91 12/16/18 14:49 Nasal Cannula 2.0 12/16/18 14:47 91 12/16/18 13:11 98.3 82 20 134/68 100 Nasal Cannula 1.0 Intake and Output 12/16/18 12/17/18 19:00 07:00 Intake Total 2700 ml 515 ml Output Total 1600 ml 1200 ml Balance 1100 ml -685 ml Intake Oral 250 ml 140 ml IV Total 2450 ml 375 ml Output Urine Total 1600 ml 1200 ml # Bowel Movements 1 Laboratory Tests Test 12/16/18 22:00 12/17/18 06:14 Urine Color Pale yellow Urine Appearance Clear Urine pH 7 (4.5-8.0) Urine Specific [place] 1.005 (1.005-1.035) Urine Protein Negative (NEGATIVE) Urine Glucose (UA) Negative (NEGATIVE) Urine Ketones Negative (NEGATIVE) Urine Blood Negative (NEGATIVE) Urine Nitrite Negative (NEGATIVE) Urine Bilirubin Negative (NEGATIVE) Urine Urobilinogen Normal MG/DL (0.0-1.0) Urine Leukocyte Esterase Negative (NEGATIVE) Urine RBC 0-2 /HPF (0 - 2) Urine WBC 0-2 /HPF (0 - 2) Urine Squamous Epithelial Cells Few /LPF (NONE/OCC) Urine Bacteria None /HPF (NONE) White Blood Count 3.7 K/UL (4.8-10.8) L Red Blood Count 3.18 M/UL (4.20-5.40) L Hemoglobin 10.2 G/DL (12.0-16.0) L Hematocrit 30.6 % (37.0-47.0) L Mean Corpuscular Volume 96 FL (80-99) Mean Corpuscular Hemoglobin 32.0 PG (27.0-31.0) H Mean Corpuscular Hemoglobin Concent 33.3 G/DL (32.0-36.0) Red Cell Distribution Width 14.1 % (11.6-14.8) Platelet Count 701 K/UL (150-450) H Mean Platelet Volume 3.9 FL (6.5-10.1) L Neutrophils (%) (Auto) 56.0 % (45.0-75.0) Lymphocytes (%) (Auto) 29.2 % (20.0-45.0) Monocytes (%) (Auto) 9.6 % (1.0-10.0) Eosinophils (%) (Auto) 2.8 % (0.0-3.0) Basophils (%) (Auto) 2.5 % (0.0-2.0) H Sodium Level 136 MMOL/L (136-145) Potassium Level 3.7 MMOL/L (3.5-5.1) Chloride Level 102 MMOL/L (98-107) Carbon Dioxide Level 24 MMOL/L (21-32) Anion Gap 10 mmol/L (5-15) Blood Urea Nitrogen 8 mg/dL (7-18) Creatinine 0.5 MG/DL (0.55-1.30) L Estimat Glomerular Filtration Rate mL/min (>60) Glucose Level 113 MG/DL (74-106) H Calcium Level 8.4 MG/DL (8.5-10.1) L Total Bilirubin 0.4 MG/DL (0.2-1.0) Aspartate Amino Transf (AST/SGOT) 13 U/L (15-37) L Alanine Aminotransferase (ALT/SGPT) 12 U/L (12-78) Alkaline Phosphatase 88 U/L (46-116) Total Protein 5.7 G/DL (6.4-8.2) L Albumin 2.4 G/DL (3.4-5.0) L Globulin 3.3 g/dL Albumin/Globulin Ratio 0.7 (1.0-2.7) L Height (Feet): 5 Height (Inches): 2.00 Weight (Pounds): 170 Medications Current Medications Medications (Trade) Dose Ordered Sig/Luda Route PRN Reason Start Time Stop Time Status Last Admin Dose Admin Acetaminophen (Tylenol) 650 mg Q4H PRN ORAL fever (temp>100.5F) 12/16/18 12:15 01/15/19 12:14 Al Hydroxide/Mg Hydroxide (Mylanta) 15 ml Q6H PRN ORAL Abdominal cramps 12/16/18 22:15 01/15/19 22:14 12/16/18 22:40 Albuterol/ Ipratropium (Albuterol/ Ipratropium) 3 ml Q4H PRN HHN Shortness of Breath 12/16/18 12:15 12/21/18 12:14 Amlodipine Besylate (Norvasc) 5 mg DAILY ORAL 12/17/18 09:00 01/16/19 08:59 12/17/18 08:28 Heparin Sodium (Porcine) (Heparin 5000 units/ml) 5,000 units EVERY 12 HOURS SUBQ 12/16/18 21:00 01/15/19 20:59 12/17/18 08:32 Losartan Potassium (Cozaar) 50 mg DAILY ORAL 12/17/18 09:00 01/16/19 08:59 12/17/18 08:28 Morphine Sulfate (Morphine Sulfate) 2 mg Q4H PRN IVP Moderate Pain (Pain Scale 4-6) 12/16/18 12:15 12/23/18 12:14 Ondansetron HCl (Zofran) 4 mg Q6H PRN IVP Nausea & Vomiting 12/16/18 12:15 01/15/19 12:14 12/17/18 10:01 Pantoprazole (Protonix) 40 mg DAILY ORAL 12/16/18 22:15 01/15/19 22:14 12/17/18 08:28 Phenazopyridine HCl (Pyridium) 100 mg DAILYPRN PRN ORAL dysuria 12/16/18 12:15 01/15/19 12:14 Polyethylene Glycol (Miralax) 17 gm DAILYPRN PRN ORAL Constipation 12/17/18 11:00 01/16/19 10:59 Sodium Chloride 1,000 ml @ 75 mls/hr [id number] IV 12/16/18 17:30 01/15/19 17:29 12/17/18 05:35 Tamsulosin HCl (Flomax) 0.4 mg BEDTIME ORAL 12/16/18 21:00 01/15/19 20:59 12/16/18 20:37 Temazepam (Restoril) 15 mg HSPRN PRN ORAL Insomnia 12/16/18 12:15 12/23/18 12:14 12/16/18 20:43 Assessment/Plan Problem List: (1) Dyspnea ICD Codes: R06.00 - Dyspnea, unspecified SNOMED: 672506460 (2) Sepsis ICD Codes: A41.9 - Sepsis, unspecified organism SNOMED: 80899424 (3) Incontinence ICD Codes: R32 - Unspecified urinary incontinence SNOMED: 98876933 (4) Diabetes mellitus ICD Codes: E11.9 - Type 2 diabetes mellitus without complications SNOMED: 10668560 (5) Normocytic anemia ICD Codes: D64.9 - Anemia, unspecified SNOMED: 418664510 (6) HTN (hypertension) ICD Codes: I10 - Essential (primary) hypertension SNOMED: 25160411 (7) Obesity ICD Codes: E66.9 - Obesity, unspecified SNOMED: 540856281, 249505573 Assessment/Plan respiratory treatment check urine cultures monitor BP sliding scale diabetic diet Anival Tolentino MD Dec 17, 2018 12:11
[2018-12-17] MEDS ORDERED: Docusate 100mg cap ORAL SCH (13:00)
--- NOTE | 2018-12-17 14:33 | Internal Med Progress Note ---
Subjective Physician Name Douglas Olivares Attending Physician Douglas Olivares MD Current Medications Medications (Trade) Dose Ordered Sig/Luda Route PRN Reason Start Time Stop Time Status Last Admin Dose Admin Acetaminophen (Tylenol) 650 mg Q4H PRN ORAL fever (temp>100.5F) 12/16/18 12:15 01/15/19 12:14 12/17/18 13:38 Al Hydroxide/Mg Hydroxide (Mylanta) 15 ml Q6H PRN ORAL Abdominal cramps 12/16/18 22:15 01/15/19 22:14 12/16/18 22:40 Albuterol/ Ipratropium (Albuterol/ Ipratropium) 3 ml Q4H PRN HHN Shortness of Breath 12/16/18 12:15 12/21/18 12:14 Amlodipine Besylate (Norvasc) 5 mg DAILY ORAL 12/17/18 09:00 01/16/19 08:59 12/17/18 08:28 Heparin Sodium (Porcine) (Heparin 5000 units/ml) 5,000 units EVERY 12 HOURS SUBQ 12/16/18 21:00 01/15/19 20:59 12/17/18 08:32 Losartan Potassium (Cozaar) 50 mg DAILY ORAL 12/17/18 09:00 01/16/19 08:59 12/17/18 08:28 Ondansetron HCl (Zofran) 4 mg Q6H PRN IVP Nausea & Vomiting 12/16/18 12:15 01/15/19 12:14 12/17/18 10:01 Pantoprazole (Protonix) 40 mg DAILY ORAL 12/16/18 22:15 01/15/19 22:14 12/17/18 08:28 Phenazopyridine HCl (Pyridium) 100 mg DAILYPRN PRN ORAL dysuria 12/16/18 12:15 01/15/19 12:14 Polyethylene Glycol (Miralax) 17 gm DAILYPRN PRN ORAL Constipation 12/17/18 11:00 01/16/19 10:59 Tamsulosin HCl (Flomax) 0.4 mg BEDTIME ORAL 12/16/18 21:00 01/15/19 20:59 12/16/18 20:37 Temazepam (Restoril) 15 mg HSPRN PRN ORAL Insomnia 12/16/18 12:15 12/23/18 12:14 12/16/18 20:43 Allergies: Coded Allergies: No Known Allergies (Unverified , 12/16/18) Subjective awake, alert, responsive, C/O diarrhea, No CP, less SOB Objective Last Vital Signs Date Time Temp Pulse Resp B/P (MAP) Pulse Ox O2 Delivery O2 Flow Rate FiO2 12/17/18 12:00 99.2 97 17 118/73 (88) 100 97 12/17/18 09:00 Nasal Cannula 2.0 Laboratory Tests Test 12/16/18 22:00 12/17/18 06:14 Urine Color Pale yellow Urine Appearance Clear Urine pH 7 (4.5-8.0) Urine Specific [place] 1.005 (1.005-1.035) Urine Protein Negative (NEGATIVE) Urine Glucose (UA) Negative (NEGATIVE) Urine Ketones Negative (NEGATIVE) Urine Blood Negative (NEGATIVE) Urine Nitrite Negative (NEGATIVE) Urine Bilirubin Negative (NEGATIVE) Urine Urobilinogen Normal MG/DL (0.0-1.0) Urine Leukocyte Esterase Negative (NEGATIVE) Urine RBC 0-2 /HPF (0 - 2) Urine WBC 0-2 /HPF (0 - 2) Urine Squamous Epithelial Cells Few /LPF (NONE/OCC) Urine Bacteria None /HPF (NONE) White Blood Count 3.7 K/UL (4.8-10.8) L Red Blood Count 3.18 M/UL (4.20-5.40) L Hemoglobin 10.2 G/DL (12.0-16.0) L Hematocrit 30.6 % (37.0-47.0) L Mean Corpuscular Volume 96 FL (80-99) Mean Corpuscular Hemoglobin 32.0 PG (27.0-31.0) H Mean Corpuscular Hemoglobin Concent 33.3 G/DL (32.0-36.0) Red Cell Distribution Width 14.1 % (11.6-14.8) Platelet Count 701 K/UL (150-450) H Mean Platelet Volume 3.9 FL (6.5-10.1) L Neutrophils (%) (Auto) 56.0 % (45.0-75.0) Lymphocytes (%) (Auto) 29.2 % (20.0-45.0) Monocytes (%) (Auto) 9.6 % (1.0-10.0) Eosinophils (%) (Auto) 2.8 % (0.0-3.0) Basophils (%) (Auto) 2.5 % (0.0-2.0) H Sodium Level 136 MMOL/L (136-145) Potassium Level 3.7 MMOL/L (3.5-5.1) Chloride Level 102 MMOL/L (98-107) Carbon Dioxide Level 24 MMOL/L (21-32) Anion Gap 10 mmol/L (5-15) Blood Urea Nitrogen 8 mg/dL (7-18) Creatinine 0.5 MG/DL (0.55-1.30) L Estimat Glomerular Filtration Rate mL/min (>60) Glucose Level 113 MG/DL (74-106) H Hemoglobin A1c 6.5 % (4.3-6.0) H Calcium Level 8.4 MG/DL (8.5-10.1) L Total Bilirubin 0.4 MG/DL (0.2-1.0) Aspartate Amino Transf (AST/SGOT) 13 U/L (15-37) L Alanine Aminotransferase (ALT/SGPT) 12 U/L (12-78) Alkaline Phosphatase 88 U/L (46-116) Total Protein 5.7 G/DL (6.4-8.2) L Albumin 2.4 G/DL (3.4-5.0) L Globulin 3.3 g/dL Albumin/Globulin Ratio 0.7 (1.0-2.7) L Microbiology Date/Time Source Procedure Growth Status 12/16/18 07:25 Blood Blood Culture - Preliminary NO GROWTH AFTER 24 HOURS Resulted 12/16/18 07:40 Nasal Nares Influenza Types A,B Antigen (GERALDINE) - Final Complete 12/16/18 07:35 Indwelling Cath Urine Culture - Preliminary Gram Negative Bacillus 1 Resulted Intake and Output 12/16/18 12/17/18 19:00 07:00 Intake Total 2700 ml 515 ml Output Total 1600 ml 1200 ml Balance 1100 ml -685 ml Intake Oral 250 ml 140 ml IV Total 2450 ml 375 ml Output Urine Total 1600 ml 1200 ml # Bowel Movements 1 Objective General: No acute distress, awake and alert HEENT: NCAT, sclera anicteric, PERRL, EOMI. Neck: Supple, no significant jugular venous distention, Lungs: Good inspiratory effort, , clear to auscultation bilaterally, no Wheeze or Rales, mild obesity. Heart: Regular rate and rhythm, normal S1/S2, no murmur Abdomen: soft, nontender, nondistended. Normoactive bowel sounds. / Rectal: Refused and deferred. Extremities: No Cyanosis , clubbing or edema. Neuro: A&O x 3, Able to move all extremities Skin: warm, no rashes or lesions Psych: Normal mood and affect Assessment/Plan Assessment/Plan (1) Normocytic anemia (2) Nausea (3) Dehydration (4) Electrolyte imbalance (5) Diarrhea R/O C. diff (6) DM 2 (7) HTN (8) Cervical spine Tumor. Plan We will send for stool studies, C. difficile to rule out infectious colitis. Okay to advance diet as tolerated Zofran as needed DC Colace discuss with family at bedside Monitor Labs Off abx. Douglas Olivares MD Dec 17, 2018 14:33
[2018-12-17 16:00] VITALS: BP 125/64
[2018-12-17] MEDS ORDERED: Vancomycin 1 GM in D5W 275 ML IVPB SCH (18:00)
[2018-12-17 20:00] VITALS: BP 148/82
[2018-12-17] MEDS ORDERED: Miralax 17gm pkt ORAL SCH (21:00)
[2018-12-17] MEDS: Tamsulosin 0.4mg cap ORAL SCH (21:02)
[2018-12-18] VITALS (8 sets, daily range): BP systolic 122–144; BP diastolic 60–92
[2018-12-18] MEDS ORDERED: Albuterol/Ipratropium 3ml neb HHN PRN (04:15)
[2018-12-18 06:46] LABS: BASOPHILS % (AUTO) 1.7 % (0.0-2.0); EOSINOPHILS % (AUTO) 2.5 % (0.0-3.0); HEMATOCRIT 29.1 % (37.0-47.0); HEMOGLOBIN 9.7 G/DL (12.0-16.0); LYMPHOCYTES % (AUTO) 23.4 % (20.0-45.0); MEAN CORPUSCULAR VOLUME 96 FL (80-99); NEUTROPHILS % (AUTO) 65.4 % (45.0-75.0); PLATELET COUNT 646 K/UL (150-450); RED BLOOD COUNT 3.04 M/UL (4.20-5.40); WHITE BLOOD COUNT 4.4 K/UL (4.8-10.8)
[2018-12-18 06:53] LABS: INR 1.1 (0.9-1.1)
[2018-12-18 07:26] LABS: % IRON SATURATION 16 % (15-50); IRON 24 ug/dL (50-175); TOTAL IRON BINDING CAPACITY 151 ug/dL (250-450)
[2018-12-18 07:30] LABS: ALANINE AMINOTRANSFERASE 11 U/L (12-78); ALBUMIN 2.3 G/DL (3.4-5.0); ALBUMIN/GLOBULIN RATIO 0.7 (1.0-2.7); ALKALINE PHOSPHATASE 80 U/L (46-116); ANION GAP 8 mmol/L (5-15); ASPARTATE AMINO TRANSFERASE 11 U/L (15-37); BILIRUBIN,TOTAL 0.2 MG/DL (0.2-1.0); BLOOD UREA NITROGEN 9 mg/dL (7-18); CALCIUM 7.9 MG/DL (8.5-10.1); CARBON DIOXIDE 26 MMOL/L (21-32); CHLORIDE 103 MMOL/L (98-107); CREATININE 0.7 MG/DL (0.55-1.30); FERRITIN 59 NG/ML (8-388); POTASSIUM 3.4 MMOL/L (3.5-5.1); SODIUM 137 MMOL/L (136-145)
--- NOTE | 2018-12-18 08:23 | General Progress Note ---
Assessment/Plan Problem List: (1) Sepsis ICD Codes: A41.9 - Sepsis, unspecified organism SNOMED: 04380766 (2) HTN (hypertension) ICD Codes: I10 - Essential (primary) hypertension SNOMED: 81963961 (3) Diabetes mellitus ICD Codes: E11.9 - Type 2 diabetes mellitus without complications SNOMED: 79752418 (4) Normocytic anemia ICD Codes: D64.9 - Anemia, unspecified SNOMED: 924422226 Assessment/Plan anemia work up in progress fu stool ob GI procedures if needed DM control abx fu labs Subjective ROS Limited/Unobtainable: Yes Allergies: Coded Allergies: No Known Allergies (Unverified , 12/16/18) Subjective c/o neck pain Objective Last 24 Hour Vital Signs Date Time Temp Pulse Resp B/P (MAP) Pulse Ox O2 Delivery O2 Flow Rate FiO2 12/18/18 04:01 98.7 105 18 144/80 (101) 100 105 12/18/18 00:13 98.2 102 19 138/68 (91) 98 100 12/17/18 21:00 Nasal Cannula 2.0 12/17/18 20:00 98.3 100 19 148/82 (104) 98 100 12/17/18 16:00 99.1 101 18 125/64 (84) 98 101 12/17/18 12:00 99.2 97 17 118/73 (88) 100 97 12/17/18 12:00 99 12/17/18 09:00 Nasal Cannula 2.0 12/17/18 08:28 161/94 12/17/18 08:28 116 161/94 Intake and Output 12/17/18 12/18/18 18:59 06:59 Intake Total 240 ml 602 ml Output Total 800 ml Balance 240 ml -198 ml Intake Oral 240 ml 602 ml Output Urine Total 800 ml # Voids 2 # Bowel Movements 3 2 Laboratory Tests 12/17/18 14:15: Stool Occult Blood [Pending] 12/18/18 04:50: White Blood Count 4.4L, Red Blood Count 3.04L, Hemoglobin 9.7L, Hematocrit 29.1L , Mean Corpuscular Volume 96, Mean Corpuscular Hemoglobin 31.8H, Mean Corpuscular Hemoglobin Concent 33.3, Red Cell Distribution Width 13.0, Platelet Count 646H, Mean Platelet Volume 3.8L, Neutrophils (%) (Auto) 65.4, Lymphocytes (%) (Auto) 23.4, Monocytes (%) (Auto) 7.0, Eosinophils (%) (Auto) 2.5, Basophils (%) (Auto) 1.7, Reticulocyte Count [Pending], Prothrombin Time 11.2, Prothromb Time International Ratio 1.1, Activated Partial Thromboplast Time 33, Sodium Level 137, Potassium Level 3.4L, Chloride Level 103, Carbon Dioxide Level 26, Anion Gap 8, Blood Urea Nitrogen 9, Creatinine 0.7, Estimat Glomerular Filtration Rate , Glucose Level 129H, Calcium Level 7.9L, Iron Level 24L, Total Iron Binding Capacity 151L, Percent Iron Saturation 16, Unsaturated Iron Binding 127, Ferritin 59, Total Bilirubin 0.2, Aspartate Amino Transf (AST/ SGOT) 11L, Alanine Aminotransferase (ALT/SGPT) 11L, Alkaline Phosphatase 80, Total Protein 5.5L, Albumin 2.3L, Globulin 3.2, Albumin/Globulin Ratio 0.7L, Carcinoembryonic Antigen [Pending], Vitamin B12 Level 643, Folate 11.1, Thyroid Stimulating Hormone (TSH) 1.468, Free Thyroxine 1.09 Height (Feet): 5 Height (Inches): 2.00 Weight (Pounds): 170 General Appearance: alert EENT: normal ENT inspection Neck: supple Cardiovascular: normal rate Respiratory/Chest: lungs clear Abdomen: normal bowel sounds, non tender, soft Extremities: non-tender Mario Addison MD Dec 18, 2018 08:23
[2018-12-18] MEDS: Heparin 5000 units/ml inj SUBQ SCH ×2 (08:27→21:01)
[2018-12-18] MEDS: Losartan 50mg tab ORAL SCH (08:29)
--- NOTE | 2018-12-18 10:03 | Pulmonology Progress Note ---
Assessment/Plan Assessment/Plan ASSESSMENT Probable sepsis ( on admission leukopenia, low grade fever, evidence of infection) UTI with Pseudomonas and GNB Shortness of breath Dehydration Tachycardia History of spinal tumor , status post recent resection Anemia of chronic disease Electrolyte imbalances Diabetes mellitus Hypertension Diarrhea /stool C dif negative PLAN OF CARE [facility] floor start IVF monitor renal parameters and electrolytes, correct electrolytes as needed , avoid nephrotoxic O2 titrate to keep pulse ox above 92%, HHN prn CTA of the chest no acute PE , but chronic pulmonary emboli not completely excluded. check venous duplex BLE DVT prophylaxis consider VQ scan if tachycardia not resolved with IVF ( CTA not completely excluded chronic emboli, consistent SOB, hx of tumor, mild elevation in D dimer ) stool C. difficile negative blood culture prel negative , urine culture with Pseudomonas and GNB abx as per ID recs BP management with ARB and optimize further as needed BS management with SSRI , hemoglobin A1c 6.5 -at goal monitor H&H with goal to keep hemoglobin above 7 anemia workup consistent with anemia of chronic disease stool OB and CEA pending GI follows symptomatic care pain management case discussed and evaluated by supervising physician Subjective Allergies: Coded Allergies: No Known Allergies (Unverified , 12/16/18) Subjective patient c/o being tired, generalized weakness no CP, no SOB family at the bedside Objective Last 24 Hour Vital Signs Date Time Temp Pulse Resp B/P (MAP) Pulse Ox O2 Delivery O2 Flow Rate FiO2 12/18/18 08:29 138/64 12/18/18 08:28 116 138/64 12/18/18 04:01 98.7 105 18 144/80 (101) 100 105 12/18/18 00:13 98.2 102 19 138/68 (91) 98 100 12/17/18 21:00 Nasal Cannula 2.0 12/17/18 20:00 98.3 100 19 148/82 (104) 98 100 12/17/18 16:00 99.1 101 18 125/64 (84) 98 101 12/17/18 12:00 99.2 97 17 118/73 (88) 100 97 12/17/18 12:00 99 Intake and Output 12/17/18 12/18/18 18:59 06:59 Intake Total 240 ml 602 ml Output Total 800 ml Balance 240 ml -198 ml Intake Oral 240 ml 602 ml Output Urine Total 800 ml # Voids 2 # Bowel Movements 3 2 Objective General Appearance: no acute distress HEENT: normocephalic, atraumatic, anicteric, mucous membranes moist Respiratory/Chest: lungs clear, no respiratory distress, no accessory muscle use Cardiovascular: normal peripheral pulses, normal rate, no JVD Abdomen: normal bowel sounds, soft, non tender Extremities: no edema Neurologic/Psychiatric: abnormal gait, alert, responsive Musculoskeletal: atrophy - BLE Microbiology Date/Time Source Procedure Growth Status 12/16/18 07:25 Blood Blood Culture - Preliminary NO GROWTH AFTER 24 HOURS Resulted 12/16/18 07:40 Nasal Nares Influenza Types A,B Antigen (GERALDINE) - Final Complete 12/17/18 14:15 Stool Clostridium difficile Toxin Assay - Final Complete 12/16/18 07:35 Indwelling Cath Urine Culture - Preliminary Pseudomonas Aeruginosa Gram Negative Bacillus 2 Resulted Laboratory Tests 12/17/18 14:15: Stool Occult Blood [Pending] 12/18/18 04:50: White Blood Count 4.4L, Red Blood Count 3.04L, Hemoglobin 9.7L, Hematocrit 29.1L , Mean Corpuscular Volume 96, Mean Corpuscular Hemoglobin 31.8H, Mean Corpuscular Hemoglobin Concent 33.3, Red Cell Distribution Width 13.0, Platelet Count 646H, Mean Platelet Volume 3.8L, Neutrophils (%) (Auto) 65.4, Lymphocytes (%) (Auto) 23.4, Monocytes (%) (Auto) 7.0, Eosinophils (%) (Auto) 2.5, Basophils (%) (Auto) 1.7, Reticulocyte Count [Pending], Prothrombin Time 11.2, Prothromb Time International Ratio 1.1, Activated Partial Thromboplast Time 33, Sodium Level 137, Potassium Level 3.4L, Chloride Level 103, Carbon Dioxide Level 26, Anion Gap 8, Blood Urea Nitrogen 9, Creatinine 0.7, Estimat Glomerular Filtration Rate , Glucose Level 129H, Calcium Level 7.9L, Iron Level 24L, Total Iron Binding Capacity 151L, Percent Iron Saturation 16, Unsaturated Iron Binding 127, Ferritin 59, Total Bilirubin 0.2, Aspartate Amino Transf (AST/ SGOT) 11L, Alanine Aminotransferase (ALT/SGPT) 11L, Alkaline Phosphatase 80, Total Protein 5.5L, Albumin 2.3L, Globulin 3.2, Albumin/Globulin Ratio 0.7L, Carcinoembryonic Antigen [Pending], Vitamin B12 Level 643, Folate 11.1, Thyroid Stimulating Hormone (TSH) 1.468, Free Thyroxine 1.09 Current Medications Medications (Trade) Dose Ordered Sig/Luda Route PRN Reason Start Time Stop Time Status Last Admin Dose Admin Acetaminophen (Tylenol) 650 mg Q4H PRN ORAL fever (temp>100.5F) 12/18/18 04:15 01/15/19 12:14 12/18/18 08:31 Al Hydroxide/Mg Hydroxide (Mylanta) 15 ml Q6H PRN ORAL Abdominal cramps 12/18/18 04:15 01/15/19 22:14 Albuterol/ Ipratropium (Albuterol/ Ipratropium) 3 ml Q4H PRN HHN Shortness of Breath 12/18/18 04:15 12/21/18 12:14 Amlodipine Besylate (Norvasc) 5 mg DAILY ORAL 12/18/18 09:00 01/16/19 08:59 12/18/18 08:28 Heparin Sodium (Porcine) (Heparin 5000 units/ml) 5,000 units EVERY 12 HOURS SUBQ 12/18/18 09:00 01/15/19 20:59 12/18/18 08:27 Losartan Potassium (Cozaar) 50 mg DAILY ORAL 12/18/18 09:00 01/16/19 08:59 Ondansetron HCl (Zofran) 4 mg Q6H PRN IVP Nausea & Vomiting 12/18/18 06:15 01/15/19 12:14 Pantoprazole (Protonix) 40 mg DAILY ORAL 12/18/18 09:00 01/15/19 22:14 12/18/18 08:28 Phenazopyridine HCl (Pyridium) 100 mg DAILYPRN PRN ORAL dysuria 12/18/18 12:15 01/15/19 12:14 Polyethylene Glycol (Miralax) 17 gm DAILYPRN PRN ORAL Constipation 12/18/18 11:00 01/16/19 10:59 Tamsulosin HCl (Flomax) 0.4 mg BEDTIME ORAL 12/18/18 21:00 01/15/19 20:59 Temazepam (Restoril) 15 mg HSPRN PRN ORAL Insomnia 12/18/18 12:15 12/23/18 12:14 Lupe Fong NP Dec 18, 2018 10:03
[2018-12-18] MEDS ORDERED: Miralax 17gm pkt ORAL PRN (11:00)
[2018-12-18] MEDS: NS w/KCl 20mEq 1,000 ML IV SCH (12:31)
--- NOTE | 2018-12-18 15:39 | Internal Med Progress Note ---
Subjective Date of Service: Dec 18, 2018 Physician Name Devin Rojas Attending Physician Douglas Olivares MD Current Medications Medications (Trade) Dose Ordered Sig/Luda Route PRN Reason Start Time Stop Time Status Last Admin Dose Admin Acetaminophen (Tylenol) 650 mg Q4H PRN ORAL fever (temp>100.5F) 12/18/18 04:15 01/15/19 12:14 12/18/18 08:31 Al Hydroxide/Mg Hydroxide (Mylanta) 15 ml Q6H PRN ORAL Abdominal cramps 12/18/18 04:15 01/15/19 22:14 Albuterol/ Ipratropium (Albuterol/ Ipratropium) 3 ml Q4H PRN HHN Shortness of Breath 12/18/18 04:15 12/21/18 12:14 Amlodipine Besylate (Norvasc) 5 mg DAILY ORAL 12/18/18 09:00 01/16/19 08:59 12/18/18 08:28 Heparin Sodium (Porcine) (Heparin 5000 units/ml) 5,000 units EVERY 12 HOURS SUBQ 12/18/18 09:00 01/15/19 20:59 12/18/18 08:27 Losartan Potassium (Cozaar) 50 mg DAILY ORAL 12/18/18 09:00 01/16/19 08:59 Ondansetron HCl (Zofran) 4 mg Q6H PRN IVP Nausea & Vomiting 12/18/18 06:15 01/15/19 12:14 Pantoprazole (Protonix) 40 mg DAILY ORAL 12/18/18 09:00 01/15/19 22:14 12/18/18 08:28 Phenazopyridine HCl (Pyridium) 100 mg DAILYPRN PRN ORAL dysuria 12/18/18 12:15 01/15/19 12:14 Polyethylene Glycol (Miralax) 17 gm DAILYPRN PRN ORAL Constipation 12/18/18 11:00 01/16/19 10:59 Sodium Chloride 1,000 ml @ 75 mls/hr [id number] IV 12/18/18 11:00 01/17/19 10:59 12/18/18 12:31 Tamsulosin HCl (Flomax) 0.4 mg BEDTIME ORAL 12/18/18 21:00 01/15/19 20:59 Temazepam (Restoril) 15 mg HSPRN PRN ORAL Insomnia 12/18/18 12:15 12/23/18 12:14 Allergies: Coded Allergies: No Known Allergies (Unverified , 12/16/18) ROS Limited/Unobtainable: No Constitutional: Reports: no symptoms HEENT: Reports: no symptoms Cardiovascular: Reports: no symptoms Respiratory: Reports: no symptoms Gastrointestinal/Abdominal: Reports: no symptoms Genitourinary: Reports: no symptoms Neurologic/Psychiatric: Reports: no symptoms Subjective 83 YO F admitted with shortness of breath. Now UTI. Cover for Int Huan-Dr Olivares Objective Last Vital Signs Date Time Temp Pulse Resp B/P (MAP) Pulse Ox O2 Delivery O2 Flow Rate FiO2 12/18/18 12:00 97.3 106 20 135/92 (106) 100 77 12/18/18 09:00 Room Air 12/17/18 21:00 2.0 General Appearance: WD/WN, no apparent distress, alert EENT: PERRL/EOMI, normal ENT inspection, TMs normal Neck: non-tender, normal alignment, supple Cardiovascular: normal peripheral pulses, normal rate, regular rhythm, no gallop/murmur, no JVD Respiratory/Chest: chest wall non-tender, lungs clear, normal breath sounds, no respiratory distress, no accessory muscle use Abdomen: normal bowel sounds, non tender, soft, no organomegaly, no mass Extremities: normal range of motion Neurologic: nursing consultant II-XII grossly normal, no motor/sensory deficits Skin: normal pigmentation, warm/dry Laboratory Tests Test 12/18/18 04:50 White Blood Count 4.4 K/UL (4.8-10.8) L Red Blood Count 3.04 M/UL (4.20-5.40) L Hemoglobin 9.7 G/DL (12.0-16.0) L Hematocrit 29.1 % (37.0-47.0) L Mean Corpuscular Volume 96 FL (80-99) Mean Corpuscular Hemoglobin 31.8 PG (27.0-31.0) H Mean Corpuscular Hemoglobin Concent 33.3 G/DL (32.0-36.0) Red Cell Distribution Width 13.0 % (11.6-14.8) Platelet Count 646 K/UL (150-450) H Mean Platelet Volume 3.8 FL (6.5-10.1) L Neutrophils (%) (Auto) 65.4 % (45.0-75.0) Lymphocytes (%) (Auto) 23.4 % (20.0-45.0) Monocytes (%) (Auto) 7.0 % (1.0-10.0) Eosinophils (%) (Auto) 2.5 % (0.0-3.0) Basophils (%) (Auto) 1.7 % (0.0-2.0) Reticulocyte Count 1.6 % (0.0-2.0) Prothrombin Time 11.2 SEC (9.30-11.50) Prothromb Time International Ratio 1.1 (0.9-1.1) Activated Partial Thromboplast Time 33 SEC (23-33) Sodium Level 137 MMOL/L (136-145) Potassium Level 3.4 MMOL/L (3.5-5.1) L Chloride Level 103 MMOL/L (98-107) Carbon Dioxide Level 26 MMOL/L (21-32) Anion Gap 8 mmol/L (5-15) Blood Urea Nitrogen 9 mg/dL (7-18) Creatinine 0.7 MG/DL (0.55-1.30) Estimat Glomerular Filtration Rate mL/min (>60) Glucose Level 129 MG/DL (74-106) H Calcium Level 7.9 MG/DL (8.5-10.1) L Iron Level 24 ug/dL (50-175) L Total Iron Binding Capacity 151 ug/dL (250-450) L Percent Iron Saturation 16 % (15-50) Unsaturated Iron Binding 127 ug/dL (112-346) Ferritin 59 NG/ML (8-388) Total Bilirubin 0.2 MG/DL (0.2-1.0) Aspartate Amino Transf (AST/SGOT) 11 U/L (15-37) L Alanine Aminotransferase (ALT/SGPT) 11 U/L (12-78) L Alkaline Phosphatase 80 U/L (46-116) Total Protein 5.5 G/DL (6.4-8.2) L Albumin 2.3 G/DL (3.4-5.0) L Globulin 3.2 g/dL Albumin/Globulin Ratio 0.7 (1.0-2.7) L Carcinoembryonic Antigen Pending Vitamin B12 Level 643 PG/ML (193-986) Folate 11.1 NG/ML (8.6-58.9) Thyroid Stimulating Hormone (TSH) 1.468 uiU/mL (0.358-3.740) Free Thyroxine 1.09 NG/DL (0.76-1.46) Microbiology Date/Time Source Procedure Growth Status 12/16/18 07:25 Blood Blood Culture - Preliminary NO GROWTH AFTER 24 HOURS Resulted 12/16/18 07:40 Nasal Nares Influenza Types A,B Antigen (GERALDINE) - Final Complete 12/17/18 14:15 Stool Clostridium difficile Toxin Assay - Final Complete 12/16/18 07:35 Indwelling Cath Urine Culture - Preliminary Pseudomonas Aeruginosa Gram Negative Bacillus 2 Resulted Intake and Output 12/17/18 12/18/18 19:00 07:00 Intake Total 240 ml 602 ml Output Total 800 ml Balance 240 ml -198 ml Intake Oral 240 ml 602 ml Output Urine Total 800 ml # Voids 2 # Bowel Movements 3 2 Assessment/Plan Problem List: (1) Diabetes mellitus, type II (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 Cefepime was discontinued yesterday for unknown reasons. Restart cefepime. See ID note. (4) Dyspnea (5) HTN (hypertension) Assessment & Plan: Continue norvasc and losartan Status: progressing Devin Rojas MD Dec 18, 2018 15:39
[2018-12-18] MEDS: Cefepime HCl 1 GM in D5W 55 ML IVPB SCH (17:35)
[2018-12-18] MEDS: Tamsulosin 0.4mg cap ORAL SCH (20:57)
[2018-12-19] VITALS: BP 138/61
[2018-12-19] MEDS: NS w/KCl 20mEq 1,000 ML IV SCH (00:38)
[2018-12-19 04:00] VITALS: BP 134/65
[2018-12-19 06:50] LABS: BASOPHILS % (AUTO) 2.2 % (0.0-2.0); EOSINOPHILS % (AUTO) 2.1 % (0.0-3.0); HEMATOCRIT 27.6 % (37.0-47.0); HEMOGLOBIN 9.4 G/DL (12.0-16.0); LYMPHOCYTES % (AUTO) 19.1 % (20.0-45.0); MEAN CORPUSCULAR VOLUME 95 FL (80-99); MONOCYTES % (AUTO) 9.8 % (1.0-10.0); NEUTROPHILS % (AUTO) 66.8 % (45.0-75.0); PLATELET COUNT 604 K/UL (150-450); RED BLOOD COUNT 2.91 M/UL (4.20-5.40); RED CELL DISTRIBUTION WIDTH 13.6 % (11.6-14.8); WHITE BLOOD COUNT 5.2 K/UL (4.8-10.8)
[2018-12-19 06:59] LABS: ANION GAP 8 mmol/L (5-15); BLOOD UREA NITROGEN 10 mg/dL (7-18); CARBON DIOXIDE 24 MMOL/L (21-32); CHLORIDE 104 MMOL/L (98-107); CREATININE 0.4 MG/DL (0.55-1.30); POTASSIUM 3.7 MMOL/L (3.5-5.1); SODIUM 135 MMOL/L (136-145)
[2018-12-19 07:02] LABS: ALANINE AMINOTRANSFERASE 11 U/L (12-78); ALBUMIN 2.2 G/DL (3.4-5.0); ALBUMIN/GLOBULIN RATIO 0.7 (1.0-2.7); ALKALINE PHOSPHATASE 75 U/L (46-116); ANION GAP 8 mmol/L (5-15); ASPARTATE AMINO TRANSFERASE 10 U/L (15-37); BILIRUBIN,TOTAL 0.3 MG/DL (0.2-1.0); BLOOD UREA NITROGEN 14 mg/dL (7-18); CALCIUM 8.1 MG/DL (8.5-10.1); CARBON DIOXIDE 23 MMOL/L (21-32); CHLORIDE 104 MMOL/L (98-107); CREATININE 0.5 MG/DL (0.55-1.30); POTASSIUM 3.7 MMOL/L (3.5-5.1); SODIUM 135 MMOL/L (136-145)
[2018-12-19 08:00] VITALS: BP 127/83
--- NOTE | 2018-12-19 08:03 | General Progress Note ---
Assessment/Plan Problem List: (1) Sepsis ICD Codes: A41.9 - Sepsis, unspecified organism SNOMED: 83013822 (2) HTN (hypertension) ICD Codes: I10 - Essential (primary) hypertension SNOMED: 45604295 (3) Diabetes mellitus ICD Codes: E11.9 - Type 2 diabetes mellitus without complications SNOMED: 39183332 (4) Normocytic anemia ICD Codes: D64.9 - Anemia, unspecified SNOMED: 888047348 (5) Cervical spine tumor ICD Codes: D49.2 - Neoplasm of unspecified behavior of bone, soft tissue, and skin SNOMED: 441773656 Assessment/Plan anemia work up in progress fu stool ob>>positive plan EGD and colonoscopy for tomorrow DM control abx fu labs Subjective ROS Limited/Unobtainable: Yes Allergies: Coded Allergies: No Known Allergies (Unverified , 12/16/18) Subjective c/o neck pain Objective Last 24 Hour Vital Signs Date Time Temp Pulse Resp B/P (MAP) Pulse Ox O2 Delivery O2 Flow Rate FiO2 12/19/18 04:00 98.9 99 18 134/65 (88) 96 99 12/19/18 00:00 99.6 99 18 138/61 (86) 95 99 12/18/18 22:08 100.0 12/18/18 21:00 Room Air 12/18/18 20:00 100.5 103 19 122/60 (80) 97 107 12/18/18 16:00 97.6 107 20 137/76 (96) 97 107 12/18/18 12:00 97.3 106 20 135/92 (106) 100 77 12/18/18 09:00 Room Air 12/18/18 08:29 138/64 12/18/18 08:28 116 138/64 Intake and Output 12/18/18 12/19/18 19:00 07:00 Intake Total 913 ml 990 ml Output Total 500 ml 775 ml Balance 413 ml 215 ml Intake Oral 558 ml 240 ml IV Total 355 ml 750 ml Output Urine Total 500 ml 775 ml # Voids 1 # Bowel Movements 4 Laboratory Tests 12/19/18 05:30: White Blood Count 5.2, Red Blood Count 2.91L, Hemoglobin 9.4L, Hematocrit 27.6L , Mean Corpuscular Volume 95, Mean Corpuscular Hemoglobin 32.1H, Mean Corpuscular Hemoglobin Concent 33.9, Red Cell Distribution Width 13.6, Platelet Count 604H, Mean Platelet Volume 3.7L, Neutrophils (%) (Auto) 66.8, Lymphocytes (%) (Auto) 19.1L, Monocytes (%) (Auto) 9.8, Eosinophils (%) (Auto) 2.1, Basophils (%) (Auto) 2.2H, Sodium Level 135L, Potassium Level 3.7, Chloride Level 104, Carbon Dioxide Level 24, Anion Gap 8, Blood Urea Nitrogen 10, Creatinine 0.4L, Estimat Glomerular Filtration Rate , Glucose Level 121H, Calcium Level 8.0L, Total Bilirubin 0.3, Aspartate Amino Transf (AST/SGOT) 10L, Alanine Aminotransferase (ALT/SGPT) 11L, Alkaline Phosphatase 75, Total Protein 5.3L, Albumin 2.2L, Globulin 3.1, Albumin/Globulin Ratio 0.7L Height (Feet): 5 Height (Inches): 2.00 Weight (Pounds): 170 General Appearance: alert EENT: normal ENT inspection Neck: supple Cardiovascular: normal rate Respiratory/Chest: lungs clear Abdomen: normal bowel sounds, non tender, soft Extremities: non-tender Mario Addison MD Dec 19, 2018 08:02
--- NOTE | 2018-12-19 08:08 | Pulmonology Progress Note ---
Assessment/Plan Assessment/Plan ASSESSMENT Probable sepsis ( on admission leukopenia, low grade fever. evidence of infection) UTI with Pseudomonas and E coli Shortness of breath Dehydration Tachycardia History of spinal tumor , status post recent resection Anemia of chronic disease Electrolyte imbalances Diabetes mellitus Hypertension PLAN OF CARE [facility] floor continue IVF monitor renal parameters and electrolytes, correct electrolytes as needed , avoid nephrotoxic O2 titrate to keep pulse ox above 92%, HHN prn CTA of the chest no acute PE , but chronic pulmonary emboli not completely excluded. venous duplex BLE -pending DVT prophylaxis consider VQ scan if tachycardia not resolved with IVF - tachycardia nearly resolved ( CTA not completely excluded chronic emboli, consistent SOB, hx of tumor, mild elevation in D dimer) stool C. difficile negative blood culture prel negative , urine culture with Pseudomonas and E coli abx as per ID recs BP management with ARB and optimize further as needed BS management with SSRI , hemoglobin A1c 6.5 -at goal monitor H&H with goal to keep hemoglobin above 7 anemia workup consistent with anemia of chronic disease stool OB positive, and CEA pending GI follows EGD and colon in am symptomatic care pain management case discussed and evaluated by supervising physician Subjective Allergies: Coded Allergies: No Known Allergies (Unverified , 12/16/18) Subjective patient with generalized weakness no CP, no SOB family at the bedside had small BM tachycardia nearly resolved scheduled for EGD and colon in am Objective Last 24 Hour Vital Signs Date Time Temp Pulse Resp B/P (MAP) Pulse Ox O2 Delivery O2 Flow Rate FiO2 12/19/18 08:03 96 18 Room Air 21 12/19/18 04:00 98.9 99 18 134/65 (88) 96 99 12/19/18 00:00 99.6 99 18 138/61 (86) 95 99 12/18/18 22:08 100.0 12/18/18 21:00 Room Air 12/18/18 20:00 100.5 103 19 122/60 (80) 97 107 12/18/18 16:00 97.6 107 20 137/76 (96) 97 107 12/18/18 12:00 97.3 106 20 135/92 (106) 100 77 12/18/18 09:00 Room Air 12/18/18 08:29 138/64 12/18/18 08:28 116 138/64 Intake and Output 12/18/18 12/19/18 19:00 07:00 Intake Total 913 ml 990 ml Output Total 500 ml 775 ml Balance 413 ml 215 ml Intake Oral 558 ml 240 ml IV Total 355 ml 750 ml Output Urine Total 500 ml 775 ml # Voids 1 # Bowel Movements 4 General Appearance: no acute distress HEENT: normocephalic, atraumatic, anicteric, mucous membranes moist Respiratory/Chest: lungs clear, no respiratory distress, no accessory muscle use Cardiovascular: normal peripheral pulses, normal rate, no JVD Abdomen: normal bowel sounds, soft, non tender Extremities: no edema Neurologic/Psychiatric: abnormal gait, alert, responsive Musculoskeletal: atrophy - BLE Microbiology Date/Time Source Procedure Growth Status 12/17/18 14:15 Stool Clostridium difficile Toxin Assay - Final Complete Laboratory Tests 12/19/18 05:30: White Blood Count 5.2, Red Blood Count 2.91L, Hemoglobin 9.4L, Hematocrit 27.6L , Mean Corpuscular Volume 95, Mean Corpuscular Hemoglobin 32.1H, Mean Corpuscular Hemoglobin Concent 33.9, Red Cell Distribution Width 13.6, Platelet Count 604H, Mean Platelet Volume 3.7L, Neutrophils (%) (Auto) 66.8, Lymphocytes (%) (Auto) 19.1L, Monocytes (%) (Auto) 9.8, Eosinophils (%) (Auto) 2.1, Basophils (%) (Auto) 2.2H, Sodium Level 135L, Potassium Level 3.7, Chloride Level 104, Carbon Dioxide Level 24, Anion Gap 8, Blood Urea Nitrogen 10, Creatinine 0.4L, Estimat Glomerular Filtration Rate , Glucose Level 121H, Calcium Level 8.0L, Total Bilirubin 0.3, Aspartate Amino Transf (AST/SGOT) 10L, Alanine Aminotransferase (ALT/SGPT) 11L, Alkaline Phosphatase 75, Total Protein 5.3L, Albumin 2.2L, Globulin 3.1, Albumin/Globulin Ratio 0.7L Current Medications Medications (Trade) Dose Ordered Sig/Luda Route PRN Reason Start Time Stop Time Status Last Admin Dose Admin Acetaminophen (Tylenol) 650 mg Q4H PRN ORAL Mild Pain/Temp > 100.5 12/18/18 15:30 01/17/19 15:29 12/18/18 21:38 Al Hydroxide/Mg Hydroxide (Mylanta) 15 ml Q6H PRN ORAL Abdominal cramps 12/18/18 04:15 01/15/19 22:14 Albuterol/ Ipratropium (Albuterol/ Ipratropium) 3 ml Q4H PRN HHN Shortness of Breath 12/18/18 04:15 12/21/18 12:14 Amlodipine Besylate (Norvasc) 5 mg DAILY ORAL 12/18/18 09:00 01/16/19 08:59 12/18/18 08:28 Bisacodyl (Dulcolax) 10 mg ONCE ORAL 12/19/18 16:00 12/19/18 17:00 Cefepime HCl 1 gm/ Dextrose 55 ml @ 110 mls/hr Q24H IVPB 12/18/18 17:00 12/25/18 16:59 12/18/18 17:35 Dextrose/ Electrolytes 1,000 ml @ 75 mls/hr [id number] IV 12/19/18 16:00 01/18/19 15:59 Heparin Sodium (Porcine) (Heparin 5000 units/ml) 5,000 units EVERY 12 HOURS SUBQ 12/18/18 09:00 01/15/19 20:59 12/18/18 21:01 Losartan Potassium (Cozaar) 50 mg DAILY ORAL 12/18/18 09:00 01/16/19 08:59 Ondansetron HCl (Zofran) 4 mg Q6H PRN IVP Nausea & Vomiting 12/18/18 06:15 01/15/19 12:14 Pantoprazole (Protonix) 40 mg DAILY ORAL 12/18/18 09:00 01/15/19 22:14 12/18/18 08:28 Phenazopyridine HCl (Pyridium) 100 mg DAILYPRN PRN ORAL dysuria 12/18/18 12:15 01/15/19 12:14 Polyethylene Glycol (Miralax) 17 gm DAILYPRN PRN ORAL Constipation 12/18/18 11:00 01/16/19 10:59 Polyethylene Glycol/ Electrolytes (Nulytely) 4,000 ml ONCE ORAL 12/19/18 16:00 12/19/18 17:00 Sodium Chloride 1,000 ml @ 75 mls/hr [id number] IV 12/18/18 11:00 01/17/19 10:59 12/19/18 00:38 Tamsulosin HCl (Flomax) 0.4 mg BEDTIME ORAL 12/18/18 21:00 01/15/19 20:59 12/18/18 20:57 Temazepam (Restoril) 15 mg HSPRN PRN ORAL Insomnia 12/18/18 12:15 12/23/18 12:14 12/18/18 20:57 Lupe Fong NP Dec 19, 2018 08:08
[2018-12-19] MEDS: Losartan 50mg tab ORAL SCH (09:11)
[2018-12-19] MEDS: Heparin 5000 units/ml inj SUBQ SCH ×2 (09:13→20:47)
--- NOTE | 2018-12-19 10:44 | Infectious Diseases Prog Note ---
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 UTI UA (+) some weakness and presyncope Likely from blood sugar but given Positive UA will treat for UTI. Indwelling nicolas changed in the ED UCx PSA (bullock S), E.coli ( R bactrim ,otherwise S) No Leukocytosis Low grade fever Incontinent Intermittent Constipation/diarrhea Had BM yesterday DM HTN Plan - Continue Cefepime #3/5-7 -On D/C patient could be switch to PO Ciprofloxacin (renally dose) - 12/17/18 SP Cefepime #1 and Vancomycin #1 - Monitor CBC and temps - f/u Cultures Thank you for this consult. We will continue to follow the patient during this hospitalization. Subjective Allergies: Coded Allergies: No Known Allergies (Unverified , 12/16/18) Subjective Tm 100 no leukocytosis Objective Vital Signs Last 24 Hour Vital Signs Date Time Temp Pulse Resp B/P (MAP) Pulse Ox O2 Delivery O2 Flow Rate FiO2 12/19/18 09:11 127/83 12/19/18 09:11 96 127/83 12/19/18 08:03 96 18 Room Air 21 12/19/18 08:00 98.2 101 20 127/83 (98) 96 12/19/18 04:00 98.9 99 18 134/65 (88) 96 99 12/19/18 00:00 99.6 99 18 138/61 (86) 95 99 12/18/18 22:08 100.0 12/18/18 21:00 Room Air 12/18/18 20:00 100.5 103 19 122/60 (80) 97 107 12/18/18 16:00 97.6 107 20 137/76 (96) 97 107 12/18/18 12:00 97.3 106 20 135/92 (106) 100 77 Height (Feet): 5 Height (Inches): 2.00 Weight (Pounds): 170 Objective Gen: NAD, well appearing, alert HEENT: NCAT, MMM, EOMI, PERRL, No Oral lesion, no scleral icterus, Neck surgical site C/D/I NECK: full range of motion, supple, no meningismus, No LAD, No JVD LUNGS: CTAB, No W/C, No Accessory muscle use CARDS: RRR, S1, S2, No M/R/G, ABD: Soft, NT, ND, No R/G, + BS, No HSM, No Masses : nicolas in place Ext: C/C/E, Pulses 2+ B/L (DP, Rad): NEURO: A/O x 4, Strength and Sensation Grossly intact PSYCH: Mood/affect normal SKIN: Warm/dry, No rashes Microbiology Date/Time Source Procedure Growth Status 12/17/18 14:15 Stool Clostridium difficile Toxin Assay - Final Complete Laboratory Tests Test 12/19/18 05:30 White Blood Count 5.2 K/UL (4.8-10.8) Red Blood Count 2.91 M/UL (4.20-5.40) L Hemoglobin 9.4 G/DL (12.0-16.0) L Hematocrit 27.6 % (37.0-47.0) L Mean Corpuscular Volume 95 FL (80-99) Mean Corpuscular Hemoglobin 32.1 PG (27.0-31.0) H Mean Corpuscular Hemoglobin Concent 33.9 G/DL (32.0-36.0) Red Cell Distribution Width 13.6 % (11.6-14.8) Platelet Count 604 K/UL (150-450) H Mean Platelet Volume 3.7 FL (6.5-10.1) L Neutrophils (%) (Auto) 66.8 % (45.0-75.0) Lymphocytes (%) (Auto) 19.1 % (20.0-45.0) L Monocytes (%) (Auto) 9.8 % (1.0-10.0) Eosinophils (%) (Auto) 2.1 % (0.0-3.0) Basophils (%) (Auto) 2.2 % (0.0-2.0) H Sodium Level 135 MMOL/L (136-145) L Potassium Level 3.7 MMOL/L (3.5-5.1) Chloride Level 104 MMOL/L (98-107) Carbon Dioxide Level 24 MMOL/L (21-32) Anion Gap 8 mmol/L (5-15) Blood Urea Nitrogen 10 mg/dL (7-18) Creatinine 0.4 MG/DL (0.55-1.30) L Estimat Glomerular Filtration Rate mL/min (>60) Glucose Level 121 MG/DL (74-106) H Calcium Level 8.0 MG/DL (8.5-10.1) L Total Bilirubin 0.3 MG/DL (0.2-1.0) Aspartate Amino Transf (AST/SGOT) 10 U/L (15-37) L Alanine Aminotransferase (ALT/SGPT) 11 U/L (12-78) L Alkaline Phosphatase 75 U/L (46-116) Total Protein 5.3 G/DL (6.4-8.2) L Albumin 2.2 G/DL (3.4-5.0) L Globulin 3.1 g/dL Albumin/Globulin Ratio 0.7 (1.0-2.7) L Current Medications Medications (Trade) Dose Ordered Sig/Luda Route PRN Reason Start Time Stop Time Status Last Admin Dose Admin Acetaminophen (Tylenol) 650 mg Q4H PRN ORAL Mild Pain/Temp > 100.5 12/18/18 15:30 01/17/19 15:29 12/18/18 21:38 Al Hydroxide/Mg Hydroxide (Mylanta) 15 ml Q6H PRN ORAL Abdominal cramps 12/18/18 04:15 01/15/19 22:14 Albuterol/ Ipratropium (Albuterol/ Ipratropium) 3 ml Q4H PRN HHN Shortness of Breath 12/18/18 04:15 12/21/18 12:14 Amlodipine Besylate (Norvasc) 5 mg DAILY ORAL 12/18/18 09:00 01/16/19 08:59 12/19/18 09:11 Bisacodyl (Dulcolax) 10 mg ONCE ORAL 12/19/18 16:00 12/19/18 17:00 Cefepime HCl 1 gm/ Dextrose 55 ml @ 110 mls/hr Q24H IVPB 12/18/18 17:00 12/25/18 16:59 12/18/18 17:35 Dextrose/ Electrolytes 1,000 ml @ 75 mls/hr [id number] IV 12/19/18 16:00 01/18/19 15:59 Heparin Sodium (Porcine) (Heparin 5000 units/ml) 5,000 units EVERY 12 HOURS SUBQ 12/18/18 09:00 01/15/19 20:59 12/19/18 09:13 Losartan Potassium (Cozaar) 50 mg DAILY ORAL 12/18/18 09:00 01/16/19 08:59 12/19/18 09:11 Ondansetron HCl (Zofran) 4 mg Q6H PRN IVP Nausea & Vomiting 12/18/18 06:15 01/15/19 12:14 Pantoprazole (Protonix) 40 mg DAILY ORAL 12/18/18 09:00 01/15/19 22:14 12/19/18 09:11 Phenazopyridine HCl (Pyridium) 100 mg DAILYPRN PRN ORAL dysuria 12/18/18 12:15 01/15/19 12:14 Polyethylene Glycol (Miralax) 17 gm DAILYPRN PRN ORAL Constipation 12/18/18 11:00 01/16/19 10:59 Polyethylene Glycol/ Electrolytes (Nulytely) 4,000 ml ONCE ORAL 12/19/18 16:00 12/19/18 17:00 Tamsulosin HCl (Flomax) 0.4 mg BEDTIME ORAL 12/18/18 21:00 01/15/19 20:59 12/18/18 20:57 Temazepam (Restoril) 15 mg HSPRN PRN ORAL Insomnia 12/18/18 12:15 12/23/18 12:14 12/18/18 20:57 Emi Read M.D. Dec 19, 2018 10:44
[2018-12-19 12:00] VITALS: BP 144/74
[2018-12-19] MEDS: D5 1/2NS w/KCl 20mEq 1,000 ML IV SCH (15:18)
--- NOTE | 2018-12-19 15:34 | Internal Med Progress Note ---
Subjective Date of Service: Dec 19, 2018 Physician Name Devin Rojas Attending Physician Douglas Olivares MD Current Medications Medications (Trade) Dose Ordered Sig/Luda Route PRN Reason Start Time Stop Time Status Last Admin Dose Admin Acetaminophen (Tylenol) 650 mg Q4H PRN ORAL Mild Pain/Temp > 100.5 12/18/18 15:30 01/17/19 15:29 12/18/18 21:38 Al Hydroxide/Mg Hydroxide (Mylanta) 15 ml Q6H PRN ORAL Abdominal cramps 12/18/18 04:15 01/15/19 22:14 Albuterol/ Ipratropium (Albuterol/ Ipratropium) 3 ml Q4H PRN HHN Shortness of Breath 12/18/18 04:15 12/21/18 12:14 Amlodipine Besylate (Norvasc) 5 mg DAILY ORAL 12/18/18 09:00 01/16/19 08:59 12/19/18 09:11 Bisacodyl (Dulcolax) 10 mg ONCE ORAL 12/19/18 16:00 12/19/18 17:00 Cefepime HCl 1 gm/ Dextrose 55 ml @ 110 mls/hr Q24H IVPB 12/18/18 17:00 12/25/18 16:59 12/18/18 17:35 Dextrose/ Electrolytes 1,000 ml @ 75 mls/hr [id number] IV 12/19/18 16:00 01/18/19 15:59 12/19/18 15:18 Heparin Sodium (Porcine) (Heparin 5000 units/ml) 5,000 units EVERY 12 HOURS SUBQ 12/18/18 09:00 01/15/19 20:59 12/19/18 09:13 Losartan Potassium (Cozaar) 50 mg DAILY ORAL 12/18/18 09:00 01/16/19 08:59 12/19/18 09:11 Ondansetron HCl (Zofran) 4 mg Q6H PRN IVP Nausea & Vomiting 12/18/18 06:15 01/15/19 12:14 Pantoprazole (Protonix) 40 mg DAILY ORAL 12/18/18 09:00 01/15/19 22:14 12/19/18 09:11 Phenazopyridine HCl (Pyridium) 100 mg DAILYPRN PRN ORAL dysuria 12/18/18 12:15 01/15/19 12:14 Polyethylene Glycol (Miralax) 17 gm DAILYPRN PRN ORAL Constipation 12/18/18 11:00 01/16/19 10:59 Polyethylene Glycol/ Electrolytes (Nulytely) 4,000 ml ONCE ORAL 12/19/18 16:00 12/19/18 17:00 Tamsulosin HCl (Flomax) 0.4 mg BEDTIME ORAL 12/18/18 21:00 01/15/19 20:59 12/18/18 20:57 Temazepam (Restoril) 15 mg HSPRN PRN ORAL Insomnia 12/18/18 12:15 12/23/18 12:14 12/18/18 20:57 Allergies: Coded Allergies: No Known Allergies (Unverified , 12/16/18) ROS Limited/Unobtainable: No Constitutional: Reports: no symptoms HEENT: Reports: no symptoms Cardiovascular: Reports: no symptoms Respiratory: Reports: no symptoms Gastrointestinal/Abdominal: Reports: no symptoms Genitourinary: Reports: no symptoms Neurologic/Psychiatric: Reports: no symptoms Subjective 83 YO F admitted with shortness of breath. Now UTI. Cover for Int Huan-Dr Olivares Objective Last Vital Signs Date Time Temp Pulse Resp B/P (MAP) Pulse Ox O2 Delivery O2 Flow Rate FiO2 12/19/18 12:00 98.8 97 20 144/74 (97) 97 12/19/18 09:00 Room Air 12/19/18 08:03 21 12/17/18 21:00 2.0 Laboratory Tests Test 12/19/18 05:30 White Blood Count 5.2 K/UL (4.8-10.8) Red Blood Count 2.91 M/UL (4.20-5.40) L Hemoglobin 9.4 G/DL (12.0-16.0) L Hematocrit 27.6 % (37.0-47.0) L Mean Corpuscular Volume 95 FL (80-99) Mean Corpuscular Hemoglobin 32.1 PG (27.0-31.0) H Mean Corpuscular Hemoglobin Concent 33.9 G/DL (32.0-36.0) Red Cell Distribution Width 13.6 % (11.6-14.8) Platelet Count 604 K/UL (150-450) H Mean Platelet Volume 3.7 FL (6.5-10.1) L Neutrophils (%) (Auto) 66.8 % (45.0-75.0) Lymphocytes (%) (Auto) 19.1 % (20.0-45.0) L Monocytes (%) (Auto) 9.8 % (1.0-10.0) Eosinophils (%) (Auto) 2.1 % (0.0-3.0) Basophils (%) (Auto) 2.2 % (0.0-2.0) H Sodium Level 135 MMOL/L (136-145) L Potassium Level 3.7 MMOL/L (3.5-5.1) Chloride Level 104 MMOL/L (98-107) Carbon Dioxide Level 24 MMOL/L (21-32) Anion Gap 8 mmol/L (5-15) Blood Urea Nitrogen 10 mg/dL (7-18) Creatinine 0.4 MG/DL (0.55-1.30) L Estimat Glomerular Filtration Rate mL/min (>60) Glucose Level 121 MG/DL (74-106) H Calcium Level 8.0 MG/DL (8.5-10.1) L Total Bilirubin 0.3 MG/DL (0.2-1.0) Aspartate Amino Transf (AST/SGOT) 10 U/L (15-37) L Alanine Aminotransferase (ALT/SGPT) 11 U/L (12-78) L Alkaline Phosphatase 75 U/L (46-116) Total Protein 5.3 G/DL (6.4-8.2) L Albumin 2.2 G/DL (3.4-5.0) L Globulin 3.1 g/dL Albumin/Globulin Ratio 0.7 (1.0-2.7) L Microbiology Date/Time Source Procedure Growth Status 12/17/18 14:15 Stool Clostridium difficile Toxin Assay - Final Complete Intake and Output 12/18/18 12/19/18 19:00 07:00 Intake Total 913 ml 990 ml Output Total 500 ml 775 ml Balance 413 ml 215 ml Intake Oral 558 ml 240 ml IV Total 355 ml 750 ml Output Urine Total 500 ml 775 ml # Voids 1 # Bowel Movements 4 Objective General Appearance: WD/WN, no apparent distress, alert EENT: PERRL/EOMI, normal ENT inspection, TMs normal Neck: non-tender, normal alignment, supple Cardiovascular: normal peripheral pulses, normal rate, regular rhythm, no gallop/murmur, no JVD Respiratory/Chest: chest wall non-tender, lungs clear, normal breath sounds, no respiratory distress, no accessory muscle use Abdomen: normal bowel sounds, non tender, soft, no organomegaly, no mass Extremities: normal range of motion Neurologic: internal carver II-XII grossly normal, no motor/sensory deficits Skin: normal pigmentation, warm/dry Assessment/Plan Problem List: (1) Diabetes mellitus, type II (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 Continue cefepime. See ID note. (4) Dyspnea (5) HTN (hypertension) Assessment & Plan: Continue norvasc and losartan Status: progressing Devin Rojas MD Dec 19, 2018 15:34
[2018-12-19 16:00] VITALS: BP 135/62
[2018-12-19] MEDS ORDERED: Bisacodyl EC 5mg tab ORAL SCH (16:00)
[2018-12-19] MEDS ORDERED: Nulytely 4L ORAL SCH (16:00)
[2018-12-19] MEDS: Cefepime HCl 1 GM in D5W 55 ML IVPB SCH (17:10)
[2018-12-19 20:36] VITALS: BP 141/75
[2018-12-19] MEDS: Tamsulosin 0.4mg cap ORAL SCH (20:59)
[2018-12-20] VITALS (14 sets, daily range): BP systolic 129–165; BP diastolic 61–92
[2018-12-20] MEDS: D5 1/2NS w/KCl 20mEq 1,000 ML IV SCH ×2 (04:58→18:46)
[2018-12-20 06:21] LABS: BASOPHILS % (AUTO) 2.5 % (0.0-2.0); EOSINOPHILS % (AUTO) 2.4 % (0.0-3.0); HEMATOCRIT 28.5 % (37.0-47.0); HEMOGLOBIN 9.5 G/DL (12.0-16.0); LYMPHOCYTES % (AUTO) 26.6 % (20.0-45.0); MEAN CORPUSCULAR VOLUME 95 FL (80-99); MONOCYTES % (AUTO) 7.4 % (1.0-10.0); NEUTROPHILS % (AUTO) 61.1 % (45.0-75.0); PLATELET COUNT 538 K/UL (150-450); RED BLOOD COUNT 2.99 M/UL (4.20-5.40); RED CELL DISTRIBUTION WIDTH 12.7 % (11.6-14.8); WHITE BLOOD COUNT 3.8 K/UL (4.8-10.8)
[2018-12-20 06:33] LABS: ANION GAP 7 mmol/L (5-15); BLOOD UREA NITROGEN 6 mg/dL (7-18); CALCIUM 8.1 MG/DL (8.5-10.1); CARBON DIOXIDE 25 MMOL/L (21-32); CHLORIDE 104 MMOL/L (98-107); CREATININE 0.4 MG/DL (0.55-1.30); POTASSIUM 3.5 MMOL/L (3.5-5.1); SODIUM 136 MMOL/L (136-145)
[2018-12-20] MEDS: Heparin 5000 units/ml inj SUBQ SCH ×2 (09:00→22:10)
[2018-12-20] MEDS: Losartan 50mg tab ORAL SCH (09:00)
[2018-12-20] MEDS ORDERED: LR 1000ml 1,000 ML IVLG SCH (09:49)
--- NOTE | 2018-12-20 09:49 | Anethesia Preoperative Eval ---
Anesthesia Pre-op PMH/ROS General Date of Evaluation: Dec 20, 2018 Anesthesiologist: Jourdan ASA Score: ASA 3 Mallampati Score Class I : Soft palate, uvula, fauces, pillars visible Class II: Soft palate, uvula, fauces visible Class III: Soft palate, base of uvula visible Class IV: Only hard plate visible Mallampati Classification: Class II Surgeon: Cyn Diagnosis: ? GI bleed Surgical Procedure: EGD Anesthesia History: none Family History: no anesthesia problems Allergies: Coded Allergies: No Known Allergies (Unverified , 12/16/18) Medications: see eMAR Patient NPO?: Yes NPO Date: Dec 19, 2018 Past Medical History Cardiovascular: Reports: HTN; Denies: CAD, DC, valve dz, arrhythmia, other Pulmonary: Denies: asthma, COPD, AJAY, other Gastrointestinal/Genitourinary: Denies: GERD, CRI, ESRD, other Neurologic/Psychiatric: Denies: dementia, CVA, depression/anxiety, TIA, other Endocrine: Reports: DM; Denies: hypothyroidism, steroids, other HEENT: Denies: cataract (L), cataract (R), glaucoma, CHINIK (L), CHINIK (R), other Hematology/Immune: Denies: anemia, DVT, bleeding disorder, other Musculoskeletal/Integumentary: Denies: OA, RA, DJD, DDD, edema, other PSxH Narrative: Craniotomy Anesthesia Pre-op Phys. Exam Physician Exam Last Vital Signs Date Time Temp Pulse Resp B/P (MAP) Pulse Ox O2 Delivery O2 Flow Rate FiO2 12/20/18 09:00 98.6 93 20 165/83 (110) 96 12/20/18 07:30 Room Air 21 12/17/18 21:00 2.0 Constitutional: NAD Cardiovascular: RRR Respiratory: CTA Airway Exam Mallampati Score: Class II MO: full ROM: full Teeth: intact Anesthesia Pre-op A/P Labs Hematology Test 12/20/18 05:00 White Blood Count 3.8 K/UL (4.8-10.8) L Red Blood Count 2.99 M/UL (4.20-5.40) L Hemoglobin 9.5 G/DL (12.0-16.0) L Hematocrit 28.5 % (37.0-47.0) L Mean Corpuscular Volume 95 FL (80-99) Mean Corpuscular Hemoglobin 31.8 PG (27.0-31.0) H Mean Corpuscular Hemoglobin Concent 33.4 G/DL (32.0-36.0) Red Cell Distribution Width 12.7 % (11.6-14.8) Platelet Count 538 K/UL (150-450) H Mean Platelet Volume 3.8 FL (6.5-10.1) L Neutrophils (%) (Auto) 61.1 % (45.0-75.0) Lymphocytes (%) (Auto) 26.6 % (20.0-45.0) Monocytes (%) (Auto) 7.4 % (1.0-10.0) Eosinophils (%) (Auto) 2.4 % (0.0-3.0) Basophils (%) (Auto) 2.5 % (0.0-2.0) H Chemistry Test 12/20/18 05:00 Sodium Level 136 MMOL/L (136-145) Potassium Level 3.5 MMOL/L (3.5-5.1) Chloride Level 104 MMOL/L (98-107) Carbon Dioxide Level 25 MMOL/L (21-32) Anion Gap 7 mmol/L (5-15) Blood Urea Nitrogen 6 mg/dL (7-18) L Creatinine 0.4 MG/DL (0.55-1.30) L Estimat Glomerular Filtration Rate mL/min (>60) Glucose Level 132 MG/DL (74-106) H Calcium Level 8.1 MG/DL (8.5-10.1) L Studies Pre-op Studies: EKG - sr Risk Assessment & Plan Assessment: ASA III Plan: MAC Status Change Before Surgery: No Pre-Antibiotics Drug: N/A Ananya Mayen MD Dec 20, 2018 09:49
[2018-12-20] MEDS ORDERED: DiphenhydrAMINE 50mg/ml Inj IVP PRN (10:00)
[2018-12-20] MEDS ORDERED: LR 1000ml ONE (10:00)
[2018-12-20] MEDS ORDERED: fentaNYL 100 mcg/2 mL IV PRN (10:00)
[2018-12-20] MEDS ORDERED: Propofol 200mg/20ml IV ONE (10:00)
[2018-12-20] MEDS ORDERED: Lidocaine 1% MPF 10mg/ml 5ml ONE (10:00)
--- NOTE | 2018-12-20 10:11 | Pre-Procedure Note/Attestation ---
Pre-Procedure Note/Attestation Complete Prior to Procedure Planned Procedure: not applicable Procedure Narrative: egd Indications for Procedure Pre-Operative Diagnosis: gib Attestation I attest that I discussed the nature of the procedure; its benefits; risks and complications; and alternatives (and the risks and benefits of such alternatives ), prior to the procedure, with the patient (or the patient's legal players club representative). I attest that, if there was a reasonable possibility of needing a blood transfusion, the patient (or the patient's legal players club representative) was given the [facility] standardized written summary, pursuant to the [place]ello Pinky Blood Safety Act ([place] Health and Safety Code # 1645, as amended). I attest that I re-evaluated the patient just prior to the surgery and that there has been no change in the patient's H&P, except as documented below: Mario Addison MD Dec 20, 2018 10:11
--- NOTE | 2018-12-20 10:12 | General Progress Note ---
Assessment/Plan Problem List: (1) Sepsis ICD Codes: A41.9 - Sepsis, unspecified organism SNOMED: 52154082 (2) HTN (hypertension) ICD Codes: I10 - Essential (primary) hypertension SNOMED: 82523050 (3) Diabetes mellitus ICD Codes: E11.9 - Type 2 diabetes mellitus without complications SNOMED: 13155521 (4) Normocytic anemia ICD Codes: D64.9 - Anemia, unspecified SNOMED: 979326454 (5) Cervical spine tumor ICD Codes: D49.2 - Neoplasm of unspecified behavior of bone, soft tissue, and skin SNOMED: 338145924 Assessment/Plan anemia work up in progress fu stool ob>>positive plan EGD for today colonoscopy for tomorrow if EGD negative DM control abx fu labs Subjective ROS Limited/Unobtainable: Yes Allergies: Coded Allergies: No Known Allergies (Unverified , 12/16/18) Subjective c/o neck pain Objective Last 24 Hour Vital Signs Date Time Temp Pulse Resp B/P (MAP) Pulse Ox O2 Delivery O2 Flow Rate FiO2 12/20/18 09:00 98.6 93 20 165/83 (110) 96 12/20/18 07:30 80 12 Room Air 21 12/20/18 03:31 99.3 89 20 138/61 (86) 96 12/20/18 00:47 91 16 Room Air 21 12/20/18 00:21 99.6 91 20 150/80 (103) 95 12/19/18 20:38 Room Air 12/19/18 20:36 99.5 94 20 141/75 (97) 97 12/19/18 16:00 98.8 90 20 135/62 (86) 99 12/19/18 12:00 98.8 97 20 144/74 (97) 97 Intake and Output 12/19/18 12/20/18 18:59 06:59 Intake Total 1230 ml 990 ml Output Total 1200 ml 150 ml Balance 30 ml 840 ml Intake Oral 480 ml 240 ml IV Total 750 ml 750 ml Output Urine Total 1200 ml 150 ml # Bowel Movements 4 1 Laboratory Tests 12/20/18 05:00: White Blood Count 3.8L, Red Blood Count 2.99L, Hemoglobin 9.5L, Hematocrit 28.5L , Mean Corpuscular Volume 95, Mean Corpuscular Hemoglobin 31.8H, Mean Corpuscular Hemoglobin Concent 33.4, Red Cell Distribution Width 12.7, Platelet Count 538H, Mean Platelet Volume 3.8L, Neutrophils (%) (Auto) 61.1, Lymphocytes (%) (Auto) 26.6, Monocytes (%) (Auto) 7.4, Eosinophils (%) (Auto) 2.4, Basophils (%) (Auto) 2.5H, Sodium Level 136, Potassium Level 3.5, Chloride Level 104, Carbon Dioxide Level 25, Anion Gap 7, Blood Urea Nitrogen 6L, Creatinine 0.4L, Estimat Glomerular Filtration Rate , Glucose Level 132H, Calcium Level 8.1L Height (Feet): 5 Height (Inches): 2.00 Weight (Pounds): 170 General Appearance: alert EENT: normal ENT inspection Neck: supple Cardiovascular: normal rate Respiratory/Chest: decreased breath sounds Abdomen: normal bowel sounds, non tender, soft Extremities: non-tender Mario Addison MD Dec 20, 2018 10:12
--- NOTE | 2018-12-20 10:20 | Immediate Post-Op Evaluation ---
Immediate Post-Op Evalulation Immediate Post-Op Evalulation Procedure: EGD Date of Evaluation: Dec 20, 2018 Time of Evaluation: 10:43 IV Fluids: 200 Blood Products: 0 Estimated Blood Loss: 0 Urinary Output: 0 Blood Pressure Systolic: 146 Blood Pressure Diastolic: 83 Pulse Rate: 113 Respiratory Rate: 18 O2 Sat by Pulse Oximetry: 100 Temperature (Fahrenheit): 99 Pain Score (1-10): 0 Nausea: No Vomiting: No Complications 0 Patient Status: awake, reacts, patent, none Hydration Status: adequate Drug: N/A Ananya Mayen MD Dec 20, 2018 10:20
--- NOTE | 2018-12-20 10:21 | 48 Hour Post Anesthesia Eval ---
Post Anesthesia Evaluation Procedure: EGD Date of Evaluation: Dec 20, 2018 Airway: patent Nausea: No Vomiting: No Pain Intensity: 0 Hydration Status: adequate Cardiopulmonary Status: at baseline Mental Status/LOC: patient returned to baseline Post-Anesthesia Complications: 0 Follow-up care needed: N/A - further care as per primary team Ananya Mayen MD Dec 20, 2018 10:21
[2018-12-20] MEDS ORDERED: NS 500ML IVPB ONE (10:24)
--- NOTE | 2018-12-20 10:34 | Endoscopy Procedure Note ---
Endoscopy Procedure Note General Indication for Procedure: anemia Procedures Performed: EGD Operative Findings/Diagnosis: esophagitis Specimen: yes Pt Tolerated Procedure Well: Yes Estimated Blood Loss: none Anesthesia Anesthesiologist: nini Anesthesia: MAC Inserted Devices Implant(s) used?: No GI Core Measures 50 yrs or older w/o bx or poly: Not Applicable 10yrs. F/U not recommended: Not Applicable Mario Addison MD Dec 20, 2018 10:34
--- NOTE | 2018-12-20 11:51 | Infectious Diseases Prog Note ---
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 UTI UA (+) some weakness and presyncope Likely from blood sugar but given Positive UA will treat for UTI. Indwelling nicolas changed in the ED UCx PSA (bullock S), E.coli ( R bactrim ,otherwise S) No Leukocytosis Low grade fever Incontinent Intermittent Constipation/diarrhea Had BM yesterday DM HTN Plan - Continue Cefepime #4/7 -On D/C patient could be switch to PO Ciprofloxacin (renally dose) - 12/17/18 SP Cefepime #1 and Vancomycin #1 - Monitor CBC and temps Thank you for this consult. We will continue to follow the patient during this hospitalization. Subjective Allergies: Coded Allergies: No Known Allergies (Unverified , 12/16/18) Subjective Afebrile No leukocytosis Objective Vital Signs Last 24 Hour Vital Signs Date Time Temp Pulse Resp B/P (MAP) Pulse Ox O2 Delivery O2 Flow Rate FiO2 12/20/18 11:20 111 18 130/92 100 Nasal Cannula 3 12/20/18 10:48 113 18 144/83 100 Nasal Cannula 3 12/20/18 10:43 113 18 144/83 100 Nasal Cannula 3 12/20/18 10:41 113 18 100 12/20/18 10:38 99.0 113 18 144/83 100 Nasal Cannula 3 12/20/18 09:00 98.6 93 20 165/83 (110) 96 12/20/18 09:00 Room Air 12/20/18 07:30 80 12 Room Air 21 12/20/18 03:31 99.3 89 20 138/61 (86) 96 12/20/18 00:47 91 16 Room Air 21 12/20/18 00:21 99.6 91 20 150/80 (103) 95 12/19/18 20:38 Room Air 12/19/18 20:36 99.5 94 20 141/75 (97) 97 12/19/18 16:00 98.8 90 20 135/62 (86) 99 12/19/18 12:00 98.8 97 20 144/74 (97) 97 Height (Feet): 5 Height (Inches): 2.00 Weight (Pounds): 170 Objective 83 yo female with PMHx of DM, HTN and a 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 UTI UA (+) some weakness and presyncope Likely from blood sugar but given Positive UA will treat for UTI. Indwelling nicolas changed in the ED UCx PSA (bullock S), E.coli ( R bactrim ,otherwise S) No Leukocytosis Low grade fever Incontinent Gen: NAD, well appearing, alert HEENT: NCAT, MMM, EOMINeck surgical site C/D/I LUNGS: CTAB, No W CARDS: RRR, S1, S2, No M/R/G, ABD: Soft, NT, ND, + BS Microbiology Date/Time Source Procedure Growth Status 12/17/18 14:15 Stool Clostridium difficile Toxin Assay - Final Complete Laboratory Tests Test 12/20/18 05:00 White Blood Count 3.8 K/UL (4.8-10.8) L Red Blood Count 2.99 M/UL (4.20-5.40) L Hemoglobin 9.5 G/DL (12.0-16.0) L Hematocrit 28.5 % (37.0-47.0) L Mean Corpuscular Volume 95 FL (80-99) Mean Corpuscular Hemoglobin 31.8 PG (27.0-31.0) H Mean Corpuscular Hemoglobin Concent 33.4 G/DL (32.0-36.0) Red Cell Distribution Width 12.7 % (11.6-14.8) Platelet Count 538 K/UL (150-450) H Mean Platelet Volume 3.8 FL (6.5-10.1) L Neutrophils (%) (Auto) 61.1 % (45.0-75.0) Lymphocytes (%) (Auto) 26.6 % (20.0-45.0) Monocytes (%) (Auto) 7.4 % (1.0-10.0) Eosinophils (%) (Auto) 2.4 % (0.0-3.0) Basophils (%) (Auto) 2.5 % (0.0-2.0) H Sodium Level 136 MMOL/L (136-145) Potassium Level 3.5 MMOL/L (3.5-5.1) Chloride Level 104 MMOL/L (98-107) Carbon Dioxide Level 25 MMOL/L (21-32) Anion Gap 7 mmol/L (5-15) Blood Urea Nitrogen 6 mg/dL (7-18) L Creatinine 0.4 MG/DL (0.55-1.30) L Estimat Glomerular Filtration Rate mL/min (>60) Glucose Level 132 MG/DL (74-106) H Calcium Level 8.1 MG/DL (8.5-10.1) L Current Medications Medications (Trade) Dose Ordered Sig/Luda Route PRN Reason Start Time Stop Time Status Last Admin Dose Admin Acetaminophen (Tylenol) 650 mg Q4H PRN ORAL Mild Pain/Temp > 100.5 12/18/18 15:30 01/17/19 15:29 12/18/18 21:38 Acetaminophen (Tylenol) 650 mg Q4H PRN ORAL Mild Pain (Pain Scale 1-3) 12/20/18 10:00 12/20/18 18:00 Al Hydroxide/Mg Hydroxide (Mylanta) 15 ml Q6H PRN ORAL Abdominal cramps 12/18/18 04:15 01/15/19 22:14 Albuterol/ Ipratropium (Albuterol/ Ipratropium) 3 ml Q4H PRN HHN Shortness of Breath 12/18/18 04:15 12/21/18 12:14 Amlodipine Besylate (Norvasc) 5 mg DAILY ORAL 12/18/18 09:00 01/16/19 08:59 12/19/18 09:11 Cefepime HCl 1 gm/ Dextrose 55 ml @ 110 mls/hr Q24H IVPB 12/18/18 17:00 12/25/18 16:59 12/19/18 17:10 Dextrose/ Electrolytes 1,000 ml @ 75 mls/hr [id number] IV 12/19/18 16:00 01/18/19 15:59 12/20/18 04:58 Diphenhydramine HCl (Benadryl) 25 mg Q15M PRN IVP Itching 12/20/18 10:00 12/20/18 18:00 Fentanyl Citrate (Sublimaze 100 mcg/2 mL) 25 mcg Q10M PRN IV Moderate Pain (Pain Scale 4-6) 12/20/18 10:00 12/20/18 18:00 Heparin Sodium (Porcine) (Heparin 5000 units/ml) 5,000 units EVERY 12 HOURS SUBQ 12/18/18 09:00 01/15/19 20:59 12/19/18 09:13 Hydralazine HCl (Apresoline) 5 mg Q30M PRN IV SBP>160 OR___/DBP>90 OR___ 12/20/18 10:00 12/20/18 18:00 Lactated Ringer's 1,000 ml @ 10 mls/hr Q24H IVLG 12/20/18 09:49 12/20/18 11:48 Losartan Potassium (Cozaar) 50 mg DAILY ORAL 12/18/18 09:00 01/16/19 08:59 12/19/18 09:11 Ondansetron HCl (Zofran) 4 mg Q4H PRN IVP Nausea & Vomiting 12/19/18 22:00 01/18/19 21:59 Pantoprazole (Protonix) 40 mg DAILY ORAL 12/18/18 09:00 01/15/19 22:14 12/19/18 09:11 Phenazopyridine HCl (Pyridium) 100 mg DAILYPRN PRN ORAL dysuria 12/18/18 12:15 01/15/19 12:14 Polyethylene Glycol (Miralax) 17 gm DAILYPRN PRN ORAL Constipation 12/18/18 11:00 01/16/19 10:59 Polyethylene Glycol/ Electrolytes (Nulytely) 4,000 ml ONCE ORAL 12/20/18 16:00 12/20/18 23:59 Tamsulosin HCl (Flomax) 0.4 mg BEDTIME ORAL 12/18/18 21:00 01/15/19 20:59 12/19/18 20:59 Temazepam (Restoril) 15 mg HSPRN PRN ORAL Insomnia 12/18/18 12:15 12/23/18 12:14 12/18/18 20:57 Mark Lozano MD Dec 20, 2018 11:51
--- NOTE | 2018-12-20 14:41 | Pulmonology Progress Note ---
Assessment/Plan Problems: (1) Dyspnea (2) Sepsis (3) Incontinence (4) Diabetes mellitus (5) Normocytic anemia (6) HTN (hypertension) (7) Obesity Assessment/Plan K supplement Colonoscopy in am still has diarrhea monitor BP sliding scale Subjective ROS Limited/Unobtainable: No Constitutional: Reports: no symptoms HEENT: Repors: no symptoms Cardiovascular: Reports: no symptoms Allergies: Coded Allergies: No Known Allergies (Unverified , 12/16/18) Objective Last 24 Hour Vital Signs Date Time Temp Pulse Resp B/P (MAP) Pulse Ox O2 Delivery O2 Flow Rate FiO2 12/20/18 11:55 98.7 100 18 129/66 (87) 99 12/20/18 11:20 111 18 130/92 100 Nasal Cannula 3 12/20/18 10:48 113 18 144/83 100 Nasal Cannula 3 12/20/18 10:43 113 18 144/83 100 Nasal Cannula 3 12/20/18 10:41 113 18 100 12/20/18 10:38 99.0 113 18 144/83 100 Nasal Cannula 3 12/20/18 09:00 98.6 93 20 165/83 (110) 96 12/20/18 09:00 Room Air 12/20/18 07:30 80 12 Room Air 21 12/20/18 03:31 99.3 89 20 138/61 (86) 96 12/20/18 00:47 91 16 Room Air 21 12/20/18 00:21 99.6 91 20 150/80 (103) 95 12/19/18 20:38 Room Air 12/19/18 20:36 99.5 94 20 141/75 (97) 97 12/19/18 16:00 98.8 90 20 135/62 (86) 99 Intake and Output 12/19/18 12/20/18 18:59 06:59 Intake Total 1230 ml 990 ml Output Total 1200 ml 150 ml Balance 30 ml 840 ml Intake Oral 480 ml 240 ml IV Total 750 ml 750 ml Output Urine Total 1200 ml 150 ml # Bowel Movements 4 1 General Appearance: WD/WN HEENT: normocephalic, anicteric Respiratory/Chest: chest wall non-tender, normal breath sounds Breasts: no masses Cardiovascular: normal rate Abdomen: soft, non tender, no mass Extremities: no cyanosis, no clubbing Laboratory Tests 12/20/18 05:00: White Blood Count 3.8L, Red Blood Count 2.99L, Hemoglobin 9.5L, Hematocrit 28.5L , Mean Corpuscular Volume 95, Mean Corpuscular Hemoglobin 31.8H, Mean Corpuscular Hemoglobin Concent 33.4, Red Cell Distribution Width 12.7, Platelet Count 538H, Mean Platelet Volume 3.8L, Neutrophils (%) (Auto) 61.1, Lymphocytes (%) (Auto) 26.6, Monocytes (%) (Auto) 7.4, Eosinophils (%) (Auto) 2.4, Basophils (%) (Auto) 2.5H, Sodium Level 136, Potassium Level 3.5, Chloride Level 104, Carbon Dioxide Level 25, Anion Gap 7, Blood Urea Nitrogen 6L, Creatinine 0.4L, Estimat Glomerular Filtration Rate , Glucose Level 132H, Calcium Level 8.1L Current Medications Medications (Trade) Dose Ordered Sig/Luda Route PRN Reason Start Time Stop Time Status Last Admin Dose Admin Acetaminophen (Tylenol) 650 mg Q4H PRN ORAL Mild Pain/Temp > 100.5 12/18/18 15:30 01/17/19 15:29 12/18/18 21:38 Acetaminophen (Tylenol) 650 mg Q4H PRN ORAL Mild Pain (Pain Scale 1-3) 12/20/18 10:00 12/20/18 18:00 Al Hydroxide/Mg Hydroxide (Mylanta) 15 ml Q6H PRN ORAL Abdominal cramps 12/18/18 04:15 01/15/19 22:14 Albuterol/ Ipratropium (Albuterol/ Ipratropium) 3 ml Q4H PRN HHN Shortness of Breath 12/18/18 04:15 12/21/18 12:14 Amlodipine Besylate (Norvasc) 5 mg DAILY ORAL 12/18/18 09:00 01/16/19 08:59 12/19/18 09:11 Cefepime HCl 1 gm/ Dextrose 55 ml @ 110 mls/hr Q24H IVPB 12/18/18 17:00 12/25/18 16:59 12/19/18 17:10 Dextrose/ Electrolytes 1,000 ml @ 75 mls/hr [id number] IV 12/19/18 16:00 01/18/19 15:59 12/20/18 04:58 Diphenhydramine HCl (Benadryl) 25 mg Q15M PRN IVP Itching 12/20/18 10:00 12/20/18 18:00 Fentanyl Citrate (Sublimaze 100 mcg/2 mL) 25 mcg Q10M PRN IV Moderate Pain (Pain Scale 4-6) 12/20/18 10:00 12/20/18 18:00 Heparin Sodium (Porcine) (Heparin 5000 units/ml) 5,000 units EVERY 12 HOURS SUBQ 12/18/18 09:00 01/15/19 20:59 12/19/18 09:13 Hydralazine HCl (Apresoline) 5 mg Q30M PRN IV SBP>160 OR___/DBP>90 OR___ 12/20/18 10:00 12/20/18 18:00 Losartan Potassium (Cozaar) 50 mg DAILY ORAL 12/18/18 09:00 01/16/19 08:59 12/19/18 09:11 Ondansetron HCl (Zofran) 4 mg Q4H PRN IVP Nausea & Vomiting 12/19/18 22:00 01/18/19 21:59 Pantoprazole (Protonix) 40 mg DAILY ORAL 12/18/18 09:00 01/15/19 22:14 12/19/18 09:11 Phenazopyridine HCl (Pyridium) 100 mg DAILYPRN PRN ORAL dysuria 12/18/18 12:15 01/15/19 12:14 Polyethylene Glycol (Miralax) 17 gm DAILYPRN PRN ORAL Constipation 12/18/18 11:00 01/16/19 10:59 Polyethylene Glycol/ Electrolytes (Nulytely) 4,000 ml ONCE ORAL 12/20/18 16:00 12/20/18 23:59 Tamsulosin HCl (Flomax) 0.4 mg BEDTIME ORAL 12/18/18 21:00 01/15/19 20:59 12/19/18 20:59 Temazepam (Restoril) 15 mg HSPRN PRN ORAL Insomnia 12/18/18 12:15 12/23/18 12:14 12/18/18 20:57 Anival Tolentino MD Dec 20, 2018 14:41
[2018-12-20] MEDS ORDERED: D5 1/2NS w/KCl 20mEq 1,000 ML IVLG SCH (16:00)
[2018-12-20] MEDS ORDERED: Nulytely 4L ORAL SCH (16:00)
--- NOTE | 2018-12-20 16:30 | Procedure Note ---
DATE OF PROCEDURE: 12/20/2018 SURGEON: Mario Addison M.D. REFERRING PHYSICIAN: Douglas Olivares M.D. PROCEDURE: Upper endoscopy with biopsy. ANESTHESIA: Per Dr. Soliman. INSTRUMENT: Olympus adult flexible upper endoscope. INDICATION: Anemia with stool OB positive. REASON FOR PROCEDURE: The procedure, risks, benefits, and possible consequences, including hemorrhage, aspiration, perforation and infection, and alternative treatments, were explained to the patient/legal guardian by Dr. Mario Addison and the patient/legal guardian understood and accepted these risks. PROCEDURE IN DETAIL: After informed consent was obtained and the patient was adequately sedated, the Olympus upper endoscope was advanced from mouth into the second portion of duodenum and retroflexion was performed in the stomach. The patient had evidence of distal esophagitis without any actively bleeding at this time, LA criteria maybe 2. This was most mainly in the distal esophagus, most probably reflux related. In the stomach, there was diffuse gastritis. Random biopsy from antrum and body was obtained to rule out H. pylori infection. The patient did not have significant hiatal hernia. In the duodenum, there was one small AVM, not actively bleeding. At this time, the upper endoscope was retrieved and procedure was terminated. SUMMARY OF FINDINGS: 1. Distal esophagitis, LA criteria grade 2. 2. Gastritis, status post biopsy. 3. One duodenal AVM. RECOMMENDATIONS: 1. The patient to be on PPI daily. 2. Follow up biopsy results and treat accordingly. 3. We will discuss with the family for possible colonoscopy to further evaluation of the anemia and stool OB positivity if family agrees. I want to thank Dr. Douglas Olivares for this kind referral. Mario Addison M.D. DR: DRE JOB#: [id number] CC:
[2018-12-20] MEDS ORDERED: Tubing IV Secondary IV ONE (16:32)
[2018-12-20] MEDS: Cefepime HCl 1 GM in D5W 55 ML IVPB SCH (17:07)
--- NOTE | 2018-12-20 18:38 | Internal Med Progress Note ---
Subjective Date of Service: Dec 20, 2018 Physician Name Devin Rojas Attending Physician Douglas Olivares MD Current Medications Medications (Trade) Dose Ordered Sig/Luda Route PRN Reason Start Time Stop Time Status Last Admin Dose Admin Acetaminophen (Tylenol) 650 mg Q4H PRN ORAL Mild Pain/Temp > 100.5 12/18/18 15:30 01/17/19 15:29 12/18/18 21:38 Al Hydroxide/Mg Hydroxide (Mylanta) 15 ml Q6H PRN ORAL Abdominal cramps 12/18/18 04:15 01/15/19 22:14 Albuterol/ Ipratropium (Albuterol/ Ipratropium) 3 ml Q4H PRN HHN Shortness of Breath 12/18/18 04:15 12/21/18 12:14 Amlodipine Besylate (Norvasc) 5 mg DAILY ORAL 12/18/18 09:00 01/16/19 08:59 12/19/18 09:11 Cefepime HCl 1 gm/ Dextrose 55 ml @ 110 mls/hr Q24H IVPB 12/18/18 17:00 12/25/18 16:59 12/20/18 17:07 Dextrose/ Electrolytes 1,000 ml @ 75 mls/hr [id number] IV 12/19/18 16:00 01/18/19 15:59 12/20/18 04:58 Heparin Sodium (Porcine) (Heparin 5000 units/ml) 5,000 units EVERY 12 HOURS SUBQ 12/18/18 09:00 01/15/19 20:59 12/19/18 09:13 Losartan Potassium (Cozaar) 50 mg DAILY ORAL 12/18/18 09:00 01/16/19 08:59 12/19/18 09:11 Ondansetron HCl (Zofran) 4 mg Q4H PRN IVP Nausea & Vomiting 12/19/18 22:00 01/18/19 21:59 12/20/18 17:49 Pantoprazole (Protonix) 40 mg DAILY ORAL 12/18/18 09:00 01/15/19 22:14 12/19/18 09:11 Phenazopyridine HCl (Pyridium) 100 mg DAILYPRN PRN ORAL dysuria 12/18/18 12:15 01/15/19 12:14 Polyethylene Glycol (Miralax) 17 gm DAILYPRN PRN ORAL Constipation 12/18/18 11:00 01/16/19 10:59 Polyethylene Glycol/ Electrolytes (Nulytely) 4,000 ml ONCE ORAL 12/20/18 16:00 12/20/18 23:59 12/20/18 17:07 Tamsulosin HCl (Flomax) 0.4 mg BEDTIME ORAL 12/18/18 21:00 01/15/19 20:59 12/19/18 20:59 Temazepam (Restoril) 15 mg HSPRN PRN ORAL Insomnia 12/18/18 12:15 12/23/18 12:14 12/18/18 20:57 Allergies: Coded Allergies: No Known Allergies (Unverified , 12/16/18) ROS Limited/Unobtainable: No Constitutional: Reports: no symptoms HEENT: Reports: no symptoms Cardiovascular: Reports: no symptoms Respiratory: Reports: no symptoms Gastrointestinal/Abdominal: Reports: no symptoms Genitourinary: Reports: no symptoms Neurologic/Psychiatric: Reports: no symptoms Subjective 83 YO F admitted with shortness of breath. Now UTI. Cover for Int Med-Dr Olivares. S/P endoscopy 12/20/18. Objective Last Vital Signs Date Time Temp Pulse Resp B/P (MAP) Pulse Ox O2 Delivery O2 Flow Rate FiO2 12/20/18 16:00 97.6 91 20 147/79 (101) 98 12/20/18 11:20 Nasal Cannula 3 12/20/18 07:30 21 Laboratory Tests Test 12/20/18 05:00 White Blood Count 3.8 K/UL (4.8-10.8) L Red Blood Count 2.99 M/UL (4.20-5.40) L Hemoglobin 9.5 G/DL (12.0-16.0) L Hematocrit 28.5 % (37.0-47.0) L Mean Corpuscular Volume 95 FL (80-99) Mean Corpuscular Hemoglobin 31.8 PG (27.0-31.0) H Mean Corpuscular Hemoglobin Concent 33.4 G/DL (32.0-36.0) Red Cell Distribution Width 12.7 % (11.6-14.8) Platelet Count 538 K/UL (150-450) H Mean Platelet Volume 3.8 FL (6.5-10.1) L Neutrophils (%) (Auto) 61.1 % (45.0-75.0) Lymphocytes (%) (Auto) 26.6 % (20.0-45.0) Monocytes (%) (Auto) 7.4 % (1.0-10.0) Eosinophils (%) (Auto) 2.4 % (0.0-3.0) Basophils (%) (Auto) 2.5 % (0.0-2.0) H Sodium Level 136 MMOL/L (136-145) Potassium Level 3.5 MMOL/L (3.5-5.1) Chloride Level 104 MMOL/L (98-107) Carbon Dioxide Level 25 MMOL/L (21-32) Anion Gap 7 mmol/L (5-15) Blood Urea Nitrogen 6 mg/dL (7-18) L Creatinine 0.4 MG/DL (0.55-1.30) L Estimat Glomerular Filtration Rate mL/min (>60) Glucose Level 132 MG/DL (74-106) H Calcium Level 8.1 MG/DL (8.5-10.1) L Intake and Output 12/19/18 12/20/18 18:59 06:59 Intake Total 1230 ml 990 ml Output Total 1200 ml 150 ml Balance 30 ml 840 ml Intake Oral 480 ml 240 ml IV Total 750 ml 750 ml Output Urine Total 1200 ml 150 ml # Bowel Movements 4 1 Objective General Appearance: WD/WN, no apparent distress, alert EENT: PERRL/EOMI, normal ENT inspection, TMs normal Neck: non-tender, normal alignment, supple Cardiovascular: normal peripheral pulses, normal rate, regular rhythm, no gallop/murmur, no JVD Respiratory/Chest: chest wall non-tender, lungs clear, normal breath sounds, no respiratory distress, no accessory muscle use Abdomen: normal bowel sounds, non tender, soft, no organomegaly, no mass Extremities: normal range of motion Neurologic: singing telegram performer II-XII grossly normal, no motor/sensory deficits Skin: normal pigmentation, warm/dry Assessment/Plan Problem List: (1) Diabetes mellitus, type II (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 Pseudamonas. Continue cefepime. See ID note (4) Dyspnea (5) HTN (hypertension) Assessment & Plan: Continue norvasc and losartan (6) Normocytic anemia Assessment & Plan: S/P endoscopy 12/20/18=esophagitis Assessment/Plan D/W Essence Bailey [phone]. Requests renal ultrasound Devin Rojas MD Dec 20, 2018 18:37
[2018-12-20] MEDS: Tamsulosin 0.4mg cap ORAL SCH (21:00)
[2018-12-21] VITALS (9 sets, daily range): BP systolic 115–154; BP diastolic 73–85
[2018-12-21] MEDS ORDERED: DiphenhydrAMINE 50mg/ml Inj IVP PRN (06:45)
[2018-12-21] MEDS ORDERED: Midazolam 2mg/2ml Inj IVP PRN (06:45)
[2018-12-21] MEDS ORDERED: fentaNYL 100 mcg/2 mL IV PRN (06:45)
[2018-12-21] MEDS ORDERED: Atropine Inj 1mg/10ml Syr IV PRN (06:45)
--- NOTE | 2018-12-21 06:46 | Anethesia Preoperative Eval ---
Anesthesia Pre-op PMH/ROS General Date of Evaluation: Dec 21, 2018 Time of Evaluation: 06:42 Anesthesiologist: tong ASA Score: ASA 4 Mallampati Score Class I : Soft palate, uvula, fauces, pillars visible Class II: Soft palate, uvula, fauces visible Class III: Soft palate, base of uvula visible Class IV: Only hard plate visible Mallampati Classification: Class II Surgeon: flory Diagnosis: gi bleed Surgical Procedure: colonoscopy Anesthesia History: none Family History: no anesthesia problems Allergies: Coded Allergies: No Known Allergies (Unverified , 12/16/18) Medications: see eMAR Patient NPO?: Yes NPO Date: Dec 19, 2018 Past Medical History Cardiovascular: Reports: HTN Gastrointestinal/Genitourinary: Reports: other - urinary retention Neurologic/Psychiatric: Reports: other - brain tumor Endocrine: Reports: DM HEENT: Reports: [place] (L), [place] (R), other - decreased visual acuity Hematology/Immune: Reports: other - sepsis Anesthesia Pre-op Phys. Exam Physician Exam Last Vital Signs Date Time Temp Pulse Resp B/P (MAP) Pulse Ox O2 Delivery O2 Flow Rate FiO2 12/21/18 04:00 98.7 94 20 137/77 (97) 99 12/20/18 21:40 Nasal Cannula 2.0 28 Constitutional: NAD Neurologic: CN 2-12 intact Cardiovascular: RRR Respiratory: CTA Gastrointestinal: S/NT/ND Airway Exam Mallampati Score: Class II MO: limited Neck: flexible TMD: 2fb ROM: limited Anesthesia Pre-op A/P Risk Assessment & Plan Assessment: asa4 Plan: mac Status Change Before Surgery: No Pre-Antibiotics Drug: Yaneth Fung MD Dec 21, 2018 06:46
[2018-12-21 07:36] LABS: BASOPHILS % (AUTO) 2.7 % (0.0-2.0); EOSINOPHILS % (AUTO) 2.9 % (0.0-3.0); HEMATOCRIT 28.1 % (37.0-47.0); HEMOGLOBIN 9.4 G/DL (12.0-16.0); MEAN CORPUSCULAR VOLUME 95 FL (80-99); MONOCYTES % (AUTO) 8.9 % (1.0-10.0); NEUTROPHILS % (AUTO) 62.4 % (45.0-75.0); PLATELET COUNT 564 K/UL (150-450); RED BLOOD COUNT 2.95 M/UL (4.20-5.40); RED CELL DISTRIBUTION WIDTH 13.2 % (11.6-14.8); WHITE BLOOD COUNT 3.9 K/UL (4.8-10.8)
--- NOTE | 2018-12-21 07:40 | Pre-Procedure Note/Attestation ---
Pre-Procedure Note/Attestation Complete Prior to Procedure Planned Procedure: not applicable Procedure Narrative: colonoscopy Indications for Procedure Pre-Operative Diagnosis: gib Attestation I attest that I discussed the nature of the procedure; its benefits; risks and complications; and alternatives (and the risks and benefits of such alternatives ), prior to the procedure, with the patient (or the patient's legal safety representative). I attest that, if there was a reasonable possibility of needing a blood transfusion, the patient (or the patient's legal safety representative) was given the [facility] standardized written summary, pursuant to the [place] Pink[place] Blood Safety Act ([place] Health and Safety Code # 1645, as amended). I attest that I re-evaluated the patient just prior to the surgery and that there has been no change in the patient's H&P, except as documented below: Mario Addison MD Dec 21, 2018 07:40
[2018-12-21 07:51] LABS: ANION GAP 8 mmol/L (5-15); BLOOD UREA NITROGEN 5 mg/dL (7-18); CARBON DIOXIDE 24 MMOL/L (21-32); CHLORIDE 104 MMOL/L (98-107); CREATININE 0.5 MG/DL (0.55-1.30); POTASSIUM 3.6 MMOL/L (3.5-5.1); SODIUM 136 MMOL/L (136-145)
[2018-12-21] MEDS: D5 1/2NS w/KCl 20mEq 1,000 ML IV SCH (09:05)
--- NOTE | 2018-12-21 09:12 | Endoscopy Procedure Note ---
Endoscopy Procedure Note General Indication for Procedure: anemia Procedures Performed: flexible sigmoidoscopy Operative Findings/Diagnosis: poor prep Specimen: none Pt Tolerated Procedure Well: Yes Estimated Blood Loss: none Anesthesia Anesthesiologist: tong Anesthesia: MAC Inserted Devices Implant(s) used?: No GI Core Measures 50 yrs or older w/o bx or poly: Not Applicable 10yrs. F/U not recommended: Not Applicable Mario Addison MD Dec 21, 2018 09:12
--- NOTE | 2018-12-21 09:48 | Infectious Diseases Prog Note ---
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 UTI UA (+) some weakness and presyncope Likely from blood sugar but given Positive UA will treat for UTI. Indwelling nicolas changed in the ED UCx PSA (bullock S), E.coli ( R bactrim ,otherwise S) No Leukocytosis Low grade fever Incontinent Intermittent Constipation/diarrhea Had BM yesterday DM HTN Plan - Continue Cefepime #5/7 -On D/C patient could be switch to PO Ciprofloxacin (renally dose) - 12/17/18 SP Cefepime #1 and Vancomycin #1 - Monitor CBC and temps Thank you for this consult. We will continue to follow the patient during this hospitalization. Subjective Allergies: Coded Allergies: No Known Allergies (Unverified , 12/16/18) Subjective Afebrile No leukocytosis Doing well Objective Vital Signs Last 24 Hour Vital Signs Date Time Temp Pulse Resp B/P (MAP) Pulse Ox O2 Delivery O2 Flow Rate FiO2 12/21/18 09:00 97.7 94 20 144/76 (98) 96 12/21/18 08:45 98.0 88 18 149/84 97 Room Air 12/21/18 08:30 89 19 115/80 98 Room Air 12/21/18 08:20 91 20 154/85 98 Room Air 12/21/18 08:15 86 18 149/81 100 Nasal Cannula 3 12/21/18 08:10 98.2 94 21 148/82 100 Nasal Cannula 3 12/21/18 04:00 98.7 94 20 137/77 (97) 99 12/21/18 00:00 98.3 90 20 140/73 (95) 99 12/20/18 21:40 99 Nasal Cannula 2.0 28 12/20/18 21:39 Nasal Cannula 2.0 28 12/20/18 21:36 94 16 Nasal Cannula 2.0 28 12/20/18 21:00 Room Air 12/20/18 20:01 97.1 92 20 143/76 (98) 98 12/20/18 16:00 97.6 91 20 147/79 (101) 98 12/20/18 14:25 97.5 95 20 145/82 (103) 100 2/4/19 13:25 97.2 99 18 140/73 (95) 99 12/20/18 12:25 97.6 99 20 144/72 (96) 98 12/20/18 11:55 98.7 100 18 129/66 (87) 99 12/20/18 11:20 111 18 130/92 100 Nasal Cannula 3 12/20/18 10:48 113 18 144/83 100 Nasal Cannula 3 12/20/18 10:43 113 18 144/83 100 Nasal Cannula 3 12/20/18 10:41 113 18 100 12/20/18 10:38 99.0 113 18 144/83 100 Nasal Cannula 3 Height (Feet): 6 Height (Inches): 2.00 Weight (Pounds): 169 Objective Gen: NAD, well appearing, alert HEENT: NCAT, MMM, EOMI, Neck surgical site C/D/I LUNGS: CTAB, No W CARDS: RRR, S1, S2, No M/R/G, ABD: Soft, NT, ND, + BS Laboratory Tests Test 12/21/18 06:47 White Blood Count 3.9 K/UL (4.8-10.8) L Red Blood Count 2.95 M/UL (4.20-5.40) L Hemoglobin 9.4 G/DL (12.0-16.0) L Hematocrit 28.1 % (37.0-47.0) L Mean Corpuscular Volume 95 FL (80-99) Mean Corpuscular Hemoglobin 31.8 PG (27.0-31.0) H Mean Corpuscular Hemoglobin Concent 33.4 G/DL (32.0-36.0) Red Cell Distribution Width 13.2 % (11.6-14.8) Platelet Count 564 K/UL (150-450) H Mean Platelet Volume 4.2 FL (6.5-10.1) L Neutrophils (%) (Auto) 62.4 % (45.0-75.0) Lymphocytes (%) (Auto) 23.0 % (20.0-45.0) Monocytes (%) (Auto) 8.9 % (1.0-10.0) Eosinophils (%) (Auto) 2.9 % (0.0-3.0) Basophils (%) (Auto) 2.7 % (0.0-2.0) H Sodium Level 136 MMOL/L (136-145) Potassium Level 3.6 MMOL/L (3.5-5.1) Chloride Level 104 MMOL/L (98-107) Carbon Dioxide Level 24 MMOL/L (21-32) Anion Gap 8 mmol/L (5-15) Blood Urea Nitrogen 5 mg/dL (7-18) L Creatinine 0.5 MG/DL (0.55-1.30) L Estimat Glomerular Filtration Rate mL/min (>60) Glucose Level 122 MG/DL (74-106) H Calcium Level 8.0 MG/DL (8.5-10.1) L Current Medications Medications (Trade) Dose Ordered Sig/Luda Route PRN Reason Start Time Stop Time Status Last Admin Dose Admin Acetaminophen (Tylenol) 650 mg Q4H PRN ORAL Mild Pain/Temp > 100.5 12/18/18 15:30 01/17/19 15:29 12/18/18 21:38 Al Hydroxide/Mg Hydroxide (Mylanta) 15 ml Q1H PRN ORAL gi upset 12/21/18 06:45 12/21/18 14:00 Al Hydroxide/Mg Hydroxide (Mylanta) 15 ml Q6H PRN ORAL Abdominal cramps 12/18/18 04:15 01/15/19 22:14 Albuterol/ Ipratropium (Albuterol/ Ipratropium) 3 ml Q4H PRN HHN Shortness of Breath 12/18/18 04:15 12/21/18 12:14 Amlodipine Besylate (Norvasc) 5 mg DAILY ORAL 12/18/18 09:00 01/16/19 08:59 12/19/18 09:11 Atropine Sulfate (Atropine) 0.5 mg Q5M PRN IV bpm less than 45 12/21/18 06:45 12/21/18 14:00 Cefepime HCl 1 gm/ Dextrose 55 ml @ 110 mls/hr Q24H IVPB 12/18/18 17:00 12/25/18 16:59 12/20/18 17:07 Dextrose/ Electrolytes 1,000 ml @ 75 mls/hr [id number] IV 12/19/18 16:00 01/18/19 15:59 12/21/18 09:05 Diphenhydramine HCl (Benadryl) 25 mg Q15M PRN IVP Itching 12/21/18 06:45 12/21/18 14:00 Fentanyl Citrate (Sublimaze 100 mcg/2 mL) 25 mcg Q10M PRN IV Moderate Pain (Pain Scale 4-6) 12/21/18 06:45 12/21/18 14:00 Heparin Sodium (Porcine) (Heparin 5000 units/ml) 5,000 units EVERY 12 HOURS SUBQ 12/18/18 09:00 01/15/19 20:59 12/20/18 22:10 Hydralazine HCl (Apresoline) 5 mg Q30M PRN IV SBP>160 OR___/DBP>90 OR___ 12/21/18 06:45 12/21/18 14:00 Losartan Potassium (Cozaar) 50 mg DAILY ORAL 12/18/18 09:00 01/16/19 08:59 12/19/18 09:11 Midazolam HCl (Versed 2mg/2ml vial) 1 mg Q15M PRN IVP For Anxiety 12/21/18 06:45 12/21/18 14:00 Ondansetron HCl (Zofran) 4 mg Q1H PRN IVP Nausea & Vomiting 12/21/18 06:45 12/21/18 14:00 Ondansetron HCl (Zofran) 4 mg Q4H PRN IVP Nausea & Vomiting 12/19/18 22:00 01/18/19 21:59 12/20/18 17:49 Pantoprazole (Protonix) 40 mg DAILY ORAL 12/18/18 09:00 01/15/19 22:14 12/19/18 09:11 Phenazopyridine HCl (Pyridium) 100 mg DAILYPRN PRN ORAL dysuria 12/18/18 12:15 01/15/19 12:14 Polyethylene Glycol (Miralax) 17 gm DAILYPRN PRN ORAL Constipation 12/18/18 11:00 01/16/19 10:59 Sodium Chloride 1,000 ml @ 10 mls/hr Q24H IVLG 12/21/18 06:39 12/21/18 14:00 Tamsulosin HCl (Flomax) 0.4 mg BEDTIME ORAL 12/18/18 21:00 01/15/19 20:59 12/19/18 20:59 Temazepam (Restoril) 15 mg HSPRN PRN ORAL Insomnia 12/18/18 12:15 12/23/18 12:14 12/18/18 20:57 Mark Lozano MD Dec 21, 2018 09:48
[2018-12-21] MEDS: Losartan 50mg tab ORAL SCH (10:02)
[2018-12-21] MEDS: Heparin 5000 units/ml inj SUBQ SCH (10:03)
--- NOTE | 2018-12-21 10:30 | Procedure Note ---
DATE OF PROCEDURE: 12/21/2018 SURGEON: Mario Addison M.D. REFERRING PHYSICIAN: Douglas Olivares M.D. PROCEDURE: Attempted colonoscopy, only flexible was performed given poor prep. INDICATION: Anemia and GI bleeding. REASON FOR PROCEDURE: The procedure, risks, benefits, and possible consequences, including hemorrhage, aspiration, perforation and infection, and alternative treatments, were explained to the patient/legal guardian by Dr. Mario Addison and the patient/legal guardian understood and accepted these risks. PROCEDURE IN DETAIL: After informed consent was obtained and the patient was adequately sedated, Olympus colonoscope was inserted. First rectal exam was performed which was normal except for internal hemorrhoids. Then, the scope was advanced from rectum into the sigmoid. Given poor prep, we could not advance the scope beyond this point. The patient had solid stool covering whole colon and rectum, we could not examine properly and that is why we actually stopped it. There is no active bleeding at this time. The stool in the colon and rectum looks greenish. Retroflexion was not performed in the rectum given solid stool, but we could see some hemorrhoids on exiting the camera. SUMMARY OF FINDINGS: Incomplete colonoscopy, only flexi given poor prep, only internal hemorrhoid was seen. RECOMMENDATIONS: Given green stool, given stable H and H, given esophagitis seen on the endoscopy done by me explain the stool OB positivity. We recommend the patient to follow up as an outpatient for repeat colonoscopy. I want to thank Dr. Douglas Olivares for this kind referral. Mario Addison M.D. DR: DRE JOB#: [id number] CC:
[2018-12-21] MEDS ORDERED: CIPRO250 MG/51 PO (12:36)
[2018-12-21] MEDS ORDERED: ZOFRAN4 M1 ORAL (12:49)
--- NOTE | 2018-12-21 14:17 | Diagnostic Imaging Report ---
APPROVED REPORT CPT Code: 14896 Present Symptoms Shortness of breath BILATERAL: Imaging reveals a patent deep venous system bilaterally. There is no evidence of thrombus within the femoral, popliteal or tibial segments. The greater saphenous veins are also within normal limits. Doppler indicates normal spontaneous flow within these segments.
--- NOTE | 2018-12-21 15:12 | GI Progress Note ---
Assessment/Plan Problems: (1) Esophagitis ICD Codes: K20.9 - Esophagitis, unspecified SNOMED: 13155777 (2) Diarrhea ICD Codes: R19.7 - Diarrhea, unspecified SNOMED: 28747075 Status: stable Status Narrative Discussed with Dr. Addison. Assessment/Plan s/p EGD/colonoscopy. Incomplete colonoscopy, only flexi given poor prep, only internal hemorrhoid was seen. RECOMMENDATIONS: okay for DC per GI standpoint Given green stool, given stable H and H, given esophagitis seen on the endoscopy done by me explain the stool OB positivity. We recommend the patient to follow up as an outpatient for repeat colonoscopy. The patient was seen and examined at bedside and all new and available data was reviewed in the patients chart. I agree with the above findings, impression and plan. (Patient seen earlier today. Signature stamp does not reflect patient encounter time.). - Mario Addison MD Subjective Gastrointestinal/Abdominal: Reports: no symptoms Objective Last 24 Hour Vital Signs Date Time Temp Pulse Resp B/P (MAP) Pulse Ox O2 Delivery O2 Flow Rate FiO2 12/21/18 11:56 98.1 106 19 139/79 (99) 98 12/21/18 10:02 144/76 12/21/18 10:02 94 144/76 12/21/18 09:00 97.7 94 20 144/76 (98) 96 12/21/18 09:00 Nasal Cannula 2.0 12/21/18 08:45 98.0 88 18 149/84 97 Room Air 12/21/18 08:30 89 19 115/80 98 Room Air 12/21/18 08:20 91 20 154/85 98 Room Air 12/21/18 08:15 86 18 149/81 100 Nasal Cannula 3 12/21/18 08:10 98.2 94 21 148/82 100 Nasal Cannula 3 12/21/18 04:00 98.7 94 20 137/77 (97) 99 12/21/18 00:00 98.3 90 20 140/73 (95) 99 12/20/18 21:40 99 Nasal Cannula 2.0 28 12/20/18 21:39 Nasal Cannula 2.0 28 12/20/18 21:36 94 16 Nasal Cannula 2.0 28 12/20/18 21:00 Room Air 12/20/18 20:01 97.1 92 20 143/76 (98) 98 12/20/18 16:00 97.6 91 20 147/79 (101) 98 Intake and Output 12/20/18 12/21/18 18:59 06:59 Intake Total 870 ml 3060 ml Output Total 2350 ml 1250 ml Balance -1480 ml 1810 ml Intake Oral 620 ml 2160 ml IV Total 250 ml 900 ml Output Urine Total 2350 ml 1250 ml # Bowel Movements 4 Laboratory Tests Test 12/21/18 06:47 White Blood Count 3.9 K/UL (4.8-10.8) L Red Blood Count 2.95 M/UL (4.20-5.40) L Hemoglobin 9.4 G/DL (12.0-16.0) L Hematocrit 28.1 % (37.0-47.0) L Mean Corpuscular Volume 95 FL (80-99) Mean Corpuscular Hemoglobin 31.8 PG (27.0-31.0) H Mean Corpuscular Hemoglobin Concent 33.4 G/DL (32.0-36.0) Red Cell Distribution Width 13.2 % (11.6-14.8) Platelet Count 564 K/UL (150-450) H Mean Platelet Volume 4.2 FL (6.5-10.1) L Neutrophils (%) (Auto) 62.4 % (45.0-75.0) Lymphocytes (%) (Auto) 23.0 % (20.0-45.0) Monocytes (%) (Auto) 8.9 % (1.0-10.0) Eosinophils (%) (Auto) 2.9 % (0.0-3.0) Basophils (%) (Auto) 2.7 % (0.0-2.0) H Sodium Level 136 MMOL/L (136-145) Potassium Level 3.6 MMOL/L (3.5-5.1) Chloride Level 104 MMOL/L (98-107) Carbon Dioxide Level 24 MMOL/L (21-32) Anion Gap 8 mmol/L (5-15) Blood Urea Nitrogen 5 mg/dL (7-18) L Creatinine 0.5 MG/DL (0.55-1.30) L Estimat Glomerular Filtration Rate mL/min (>60) Glucose Level 122 MG/DL (74-106) H Calcium Level 8.0 MG/DL (8.5-10.1) L Height (Feet): 6 Height (Inches): 2.00 Weight (Pounds): 169 General Appearance: WD/WN, no apparent distress, alert Cardiovascular: normal rate Respiratory/Chest: normal breath sounds, no respiratory distress Abdominal Exam: normal bowel sounds, non tender, soft Extremities: normal range of motion, non-tender Prince Vigil NP Dec 21, 2018 15:12
--- NOTE | 2018-12-22 15:10 | Discharge Summary ---
Discharge Summary Discharge Summary _ DATE OF ADMISSION: 12/16/2018 DATE OF DISCHARGE: 12/21/2018 DISCHARGED BY: Dr Olivares REASON FOR ADMISSION: 83 years old female with past medical history of hypertension, type 2 diabetes mellitus, spinal tumor, status post recent resection, lower extremity weakness and urinary incontinence, chronic indwelling Mahajan catheter since January 2018, presented for shortness of breath, diarrhea, nausea, one episode of vomiting, poor oral intake and concern for dehydration by her daughter. Patient had not been recently on antibiotics. Mahajan catheter was changed 2 weeks ago. Patient recently underwent cervical spine surgery for decompression of her mass , and has had no complications since that time. She follows up with her surgeon at [place]. Patient denied any new weakness , fevers, chills , cough . Upon evaluation patient was demonstrated mild tachycardia , low-grade fever, blood pressure was elevated 174/97. Laboratory workup revealed no leukocytosis , hemoglobin 11.2, hematocrit 34.4. Sodium 132. Glucose 132. Albumin 2.7. Troponin negative. EKG revealed normal sinus rhythm, no acute ischemic changes. Lactic acid 1.6. Chest x-ray revealed no acute cardiopulmonary pathology. CTA of chest revealed no definite evidence of acute pulmonary emboli. Urinalysis revealed +3 protein , pyuria +3 leukocyte esterase, + 5 blood , and few bacteria. Mahajan catheter was changed in emergency department . Urine culture was sent , and patient was started on empiric antibiotics. Patient was admitted for further management CONSULTANTS: pulmonary Dr. Tolentino ID specialist Dr. Arndt GI specialist Dr. Addison [facility]: Patient admitted to medical surgical floor. Patient started on IV fluids and empiric antibiotic. Infectious disease doctor closely followed. Supplemental oxygen provided as needed to keep pulse oximetry above 92% Pulmonary toilet provided. Venous duplex bilateral lower extremity revealed no evidence of acute DVT. DVT prophylaxis provided. Sinus tachycardia nearly resolved with IV hydration. Pulse oximetry was stable on room oxygen Stool for for C. difficile was negative Blood cultures were preliminary negative. Urine culture revealed Pseudomonas and E. coli. Antibiotic provided as per ID recommendation. IV fluids continued. Renal parameters and electrolytes were closely monitored, electrolytes corrected as needed, and nephrotoxins were avoided. Blood pressure was managed with ARB. Blood sugar was managed with sliding scale of insulin. Hemoglobin A1c 6.5, at goal. Hemoglobin and hematocrit were closely monitored with goal to keep hemoglobin above 7. Anemia workup consistent with anemia of chronic disease. Stool for occult blood was positive. CEA was in normal range. GI specialist closely followed. Upper endoscopy revealed evidence of distal esophagitis , gastritis and one duodenal AV malformation. Patient will continue on PPI. Gastric biopsy results revealed mild chronic gastritis , no evidence of H. pylori infection. Patient subsequently undergone attempted colonoscopy, converted o flexible sigmoidoscopy due to poor preparation. Only internal hemorrhoids were seen. Patient will need to repeat colonoscopy as outpatient per GI specialist recommendation. Pain management was addressed . Symptomatic care provided . Patient stabilized and was ready for discharge home. On discharge patient was switched to oral ciprofloxacin to complete course of antibiotic for additional 3 days. FINAL DIAGNOSES: Probable sepsis) on admission leukopenia low-grade fever evidence of infection) UTI with Pseudomonas and E. coli Shortness of breath resolved Dehydration Tachycardia-resolved History of spinal tumor status post recent resection Electrolyte imbalance Anemia of chronic disease Diabetes mellitus Hypertension Incontinence s/p upper endoscopy Distal esophagitis Chronic gastritis s/p Flexible sigmoidoscopy Internal hemorrhoids DISCHARGE MEDICATIONS: See Medication Reconciliation list. DISCHARGE INSTRUCTIONS: Patient was discharged home . Follow up with primary care provider in one week. Lupe Fong NP Dec 22, 2018 15:10
== END 2018-12-21 14:20 | disposition home or self-care (01) | DRG 720 ==
LOC: EDBD 06:53 → EMR 07:05 → 2E 11:35 → EDBEDREQ 13:36 → 2E 21:00 → 3E 12-18 00:07
PROC: 0DB68ZX Excision of Stomach, Via Natural or Artificial Opening Endoscopic, Diagnostic (ICD-10-PCS; principal; 2018-12-20 10:24)
PROC: 0DJD8ZZ Inspection of Lower Intestinal Tract, Via Natural or Artificial Opening Endoscopic (ICD-10-PCS; 2018-12-21)
DX: A41.9 Sepsis, unspecified organism (principal); N39.0 Urinary tract infection, site not specified; D64.9 Anemia, unspecified; D63.8 Anemia in other chronic diseases classified elsewhere; E86.0 Dehydration; B96.20 Unspecified Escherichia coli [E. coli] as the cause of diseases classified elsewhere; E11.9 Type 2 diabetes mellitus without complications; B96.5 Pseudomonas (aeruginosa) (mallei) (pseudomallei) as the cause of diseases classified elsewhere; K64.8 Other hemorrhoids; K20.8 Other esophagitis; K29.50 Unspecified chronic gastritis without bleeding; Q27.39 Arteriovenous malformation, other site; I10 Essential (primary) hypertension; R00.0 Tachycardia, unspecified
CPT/HCPCS: 36415; 51702; 71045; 71275; 80048; 80053; 81001; 81003; 82270; 82378; 82550; 82553; 82607; 82728; 82746; 83036; 83540; 83550; 83605; 83880; 84439; 84443; 84484; 85025; 85044; 85379; 85610; 85730; 86710; 87040; 87086; 87181; 87324; 93005; 93970; 94003; 94150; 94664; 94760; 96361; 96374; 99285; J2405

== ENCOUNTER 2019-01-11 23:28 | Inpatient (IN) | payer MEDICAID ==
[~2019-01-11] VITALS: Ht 165.1 cm; Wt 63.5 kg
[~2019-01-11 23:28] MED LIST: AMLODIPINE BESYL5 MG ORAL; BACLOFEN5 GM MC; BETHANECHOL CHL10 MG ORAL; CIPRO250 MG/51 PO; LOPERAMIDE2 MG PO; LOSARTAN POTASS50 MG ORAL; TAMSULOSIN HCL0.4 MG ORAL; TRAMADOL HCL100 M2 ORAL; VITAMIN D400 INTLU ORAL; ZOFRAN ODT8 MG ORAL; ZOFRAN4 M1 ORAL
--- NOTE | 2019-01-11 23:45 | NUR ---
ED Nurse Note: Patient from home c/o rectal bleed. Patient had an enema this morning and was told to go to ER if she noticed bleeding.
--- NOTE | 2019-01-11 23:45 | NUR ---
Shayy marie in EDM - 01/11/19 at 2346 by ESTELITA ED Nurse Note: Patient from home c/o rectal bleed. Patient had an enema this morning and was told to go to ER if she noticed bleeding.
--- NOTE | 2019-01-11 23:46 | NUR ---
ED Nurse Note: Patient from home c/o rectal bleed. Patient had an enema this morning and was told to go to ER if she noticed bleeding. Pt is AO x 3~4 times, VSS, on room air no distress. MARGAD seen Pt at bedside.
[2019-01-11 23:55] VITALS: BP 146/84
--- NOTE | 2019-01-12 | NUR ---
ED Nurse Note: Blood sample sent to lab.
[2019-01-12] MEDS ORDERED: Pantoprazole Inj IVP ONE (00:45)
[2019-01-12 00:55] LABS: BASOPHILS % (AUTO) 1.5 % (0.0-2.0); HEMATOCRIT 33.7 % (37.0-47.0); HEMOGLOBIN 10.9 G/DL (12.0-16.0); LYMPHOCYTES % (AUTO) 19.7 % (20.0-45.0); MEAN CORPUSCULAR VOLUME 94 FL (80-99); MONOCYTES % (AUTO) 7.2 % (1.0-10.0); NEUTROPHILS % (AUTO) 68.6 % (45.0-75.0); PLATELET COUNT 411 K/UL (150-450); RED BLOOD COUNT 3.59 M/UL (4.20-5.40); WHITE BLOOD COUNT 7.8 K/UL (4.8-10.8)
[2019-01-12 01:05] LABS: ANION GAP 8 mmol/L (5-15); BLOOD UREA NITROGEN 13 mg/dL (7-18); CALCIUM 9.2 MG/DL (8.5-10.1); CARBON DIOXIDE 29 MMOL/L (21-32); CHLORIDE 101 MMOL/L (98-107); CREATININE 0.6 MG/DL (0.55-1.30); POTASSIUM 4.8 MMOL/L (3.5-5.1); SODIUM 138 MMOL/L (136-145)
[2019-01-12 01:11] LABS: ALANINE AMINOTRANSFERASE 15 U/L (12-78); ALBUMIN/GLOBULIN RATIO 0.8 (1.0-2.7); ALKALINE PHOSPHATASE 81 U/L (46-116); ASPARTATE AMINO TRANSFERASE 14 U/L (15-37); BILIRUBIN,TOTAL 0.1 MG/DL (0.2-1.0)
--- NOTE | 2019-01-12 04:41 | NUR ---
ED Nurse Note: Message left to Dr Olivares for admit orders, await for respond back.
[2019-01-12 05:15] VITALS: BP 134/84
--- NOTE | 2019-01-12 05:15 | NUR ---
ED Nurse Note: Pt admited to Tele [id number]. Belongings and report given to KYLER Dooley. Pt is AO x 4times, VSS, on room air no distress.
--- NOTE | 2019-01-12 05:58 | Emergency Room Report ---
History of Present Illness General Chief Complaint: Gastrointestinal Bleed Present Illness HPI Patient is an 83-year-old female brought in by EMS after increased rectal bleeding. Patient prior history of endoscopy and colonoscopy and had been transfused [address] [facility] after prior episode of bleeding. Patient had recent been given enema and was noted to have subsequent increased maroon colored stool. Patient was noted to have prior spinal surgery at [facility] she was noted to have some mass and patient chronically wears a c-collar. She was noted to have bilateral lower extremity weakness. Allergies: Coded Allergies: No Known Allergies (Unverified , 12/16/18) Patient History Past Medical History: see triage record Last Menstrual Period: SANGEETHA Reviewed Nursing Documentation: PMH: Agreed; PSxH: Agreed Nursing Documentation-PMH Hx Hypertension: Yes Hx Diabetes: Yes Hx Cancer: No Hx Gastrointestinal Problems: No Hx Neurological Problems: Yes - Brain tumor removed Nov 2013 Review of Systems All Other Systems: negative except mentioned in HPI Physical Exam Vital Signs Date Time Temp Pulse Resp B/P (MAP) Pulse Ox O2 Delivery O2 Flow Rate FiO2 01/11/19 23:30 98.1 88 12 168/86 98 Room Air Sp02 EP Interpretation: reviewed, normal General Appearance: normal inspection, well appearing, alert, GCS 15, obese, Chronically Ill Head: atraumatic ENT: normal ENT inspection, hearing grossly normal, normal voice Neck: normal inspection, supple, no bony tend, tender lateral Respiratory: normal inspection, lungs clear, normal breath sounds, no respiratory distress, no retraction, no wheezing Cardiovascular #1: regular rate, rhythm, no edema Gastrointestinal: normal inspection, normal bowel sounds, non tender, soft, no guarding, no hernia Genitourinary: no CVA tenderness Musculoskeletal: normal inspection, back normal, normal range of motion Neurologic: alert, responsive, speech normal, motor weakness Psychiatric: normal inspection, judgement/insight normal, mood/affect normal Skin: normal inspection, normal color, no rash Medical Decision Making Diagnostic Impression: Primary Impression: Gastrointestinal hemorrhage Additional Impressions: Cervical spine tumor Rectal bleed ER Course Patient presented for rectal bleeding. Differential diagnosis include was not limited to diverticular bleed, coagulopathy, hemorrhoid, anemia among others. Because of complexity of patient's case laboratory testing and imaging studies were ordered. Patient is noted to have some evidence of anemia. She did not appear to be in any acute distress. Patient is noted to be normotensive. Patient had significant medical history and was noted to have previous profuse bleeding requiring transfusion. Dr. Douglas Olivares was contacted for inpatient management Labs Test 01/12/19 00:00 01/12/19 03:15 White Blood Count 7.8 K/UL (4.8-10.8) Red Blood Count 3.59 M/UL (4.20-5.40) Hemoglobin 10.9 G/DL (12.0-16.0) Hematocrit 33.7 % (37.0-47.0) Mean Corpuscular Volume 94 FL (80-99) Mean Corpuscular Hemoglobin 30.3 PG (27.0-31.0) Mean Corpuscular Hemoglobin Concent 32.3 G/DL (32.0-36.0) Red Cell Distribution Width 13.0 % (11.6-14.8) Platelet Count 411 K/UL (150-450) Mean Platelet Volume 5.3 FL (6.5-10.1) Neutrophils (%) (Auto) 68.6 % (45.0-75.0) Lymphocytes (%) (Auto) 19.7 % (20.0-45.0) Monocytes (%) (Auto) 7.2 % (1.0-10.0) Eosinophils (%) (Auto) 3.0 % (0.0-3.0) Basophils (%) (Auto) 1.5 % (0.0-2.0) Sodium Level 138 MMOL/L (136-145) Potassium Level 4.8 MMOL/L (3.5-5.1) Chloride Level 101 MMOL/L (98-107) Carbon Dioxide Level 29 MMOL/L (21-32) Anion Gap 8 mmol/L (5-15) Blood Urea Nitrogen 13 mg/dL (7-18) Creatinine 0.6 MG/DL (0.55-1.30) Estimat Glomerular Filtration Rate mL/min (>60) Glucose Level 194 MG/DL (74-106) Calcium Level 9.2 MG/DL (8.5-10.1) Total Bilirubin 0.1 MG/DL (0.2-1.0) Aspartate Amino Transf (AST/SGOT) 14 U/L (15-37) Alanine Aminotransferase (ALT/SGPT) 15 U/L (12-78) Alkaline Phosphatase 81 U/L (46-116) Total Protein 6.8 G/DL (6.4-8.2) Albumin 3.0 G/DL (3.4-5.0) Globulin 3.8 g/dL Albumin/Globulin Ratio 0.8 (1.0-2.7) Prothrombin Time 10.2 SEC (9.30-11.50) Prothromb Time International Ratio 1.0 (0.9-1.1) Activated Partial Thromboplast Time 29 SEC (23-33) Last Vital Signs Date Time Temp Pulse Resp B/P (MAP) Pulse Ox O2 Delivery O2 Flow Rate FiO2 01/12/19 05:15 98.1 77 17 134/84 98 Room Air Status: unchanged Disposition: ADMITTED INPATIENT Condition: Stable Referrals: [facility],REFERRING (PCP) Bruce Pizano MD Jan 12, 2019 05:58
--- NOTE | 2019-01-12 06:15 | NUR ---
NURSE NOTES: Called Dr. Olivares and left message. Awaiting orders.
--- NOTE | 2019-01-12 06:15 | NUR ---
NURSE NOTES: Got report from Caren CHÁVEZ from ER. Pt in stable condition. Denies any pain. No s/s of distress noted. Pt resting in bed comfortably. Bed in low and locked position, call light within reach, bedside table within reach. continue to monitor. Addendum: 01/12/19 at 0633 by Kerwin Cuellar RN Initial Assessment done. VSS. Browne at bedside.
[2019-01-12 06:26] VITALS: BP 130/80
--- NOTE | 2019-01-12 07:50 | NUR ---
HAND-OFF: Report given to William Mendoza. endorsed plan of care.
--- NOTE | 2019-01-12 07:57 | NUR ---
CASE MANAGEMENT:REVIEW 83 YR OLD FEMALE BIBA FROM HOME CC: RECTAL BLEEDING PMH: BRAIN TUMOR REMOVED 2013 SI: LGIB. CERVICAL SPINE TUMOR 98.0 88 12 168/86 98% ON RA H/H-10.9/33.7 GLUCOSE+194 IS: IV PROTONIX TYPE AND CROSS : TO TELEMETRY UNIT
--- NOTE | 2019-01-12 07:58 | NUR ---
NURSE NOTES: Received report from KYLER Dooley. Patient in bed resting, no active s/s cardiac, respiratory distress noticed at this time, denies pain at this time. Family member at bed side, patient on room air, AO x4 SR with HR 72. IV site on Left FA 20G asymptomatic, patent, intact. Bed in lowest position, side rails up x2, call light within reach. Will continue to monitor.
--- NOTE | 2019-01-12 12:10 | NUR ---
ST NOTE: BEDSIDE SWALLOW EVAL RECEIVED BEDSIDE SWALLOW EVAL ORDER CHART REVIEWED PRIOR THE EVALUATION PT IS A 83-YEAR-OLD AUSTRALIAN-SPEAKING FEMALE WHO WAS ADMITTED DUE TO GI BLEED AND SPINAL INJURY DYSPHAGIA RISK FACTORS: BRAIN TUMOR(PER DAUGHTER, REMOVED IN 11/2018)AND ALSO SPINAL SURGERY@ [facility](POST RESECTION OF CERVICAL SPINE TUMOR IN 11/2018), CHRONICALLY WEARS C-COLLAR, BACK PAIN, DMII, ANXIETY, HTN. PLOF: PT LIVES AT HOME WITH FAMILY, PER DAUGHTER, NO SWALLOWING DIFFICULTY WAS NOTED AFTER THE BRAIN NOR SPINAL SURGERY. NO SIGNIFICANT CHANGED W/ SPEECH/COGNITIONS. PER DAUGHTER, PT SEEMS LESS TALKATIVE. CURRENT STATUS: PT ALERT, COOPERATIVE, FOLLOWS DIRECTIONS, DAUGHTER IS AT BEDSIDE, AUSTRALIAN-SPEAKING RN ALSO AT BEDSIDE. GIVEN PO TRIALS: THIN(CUP-SELF, USED ERNESTO PROTOCOL-3OZ), PUREE(TSP) AND CRACKERS X 2 INITIAL IMPRESSION: MIN L-SIDED FACIAL WEAKNESS WAS NOTED. GOOD MASTICATION TIME, GOOD ORAL TRANSIT TIME AND OROPHARYNGEAL TRANSIT TIME ADEQUATE LARYNGEAL ELEVATION, NO OVERT S/S OF ASPIRATION. OVERALL, PT'S SWALLOWING SEEMS FUNCTIONAL POSSIBLE HAS SOME ASPIRATION RISK DUE TO PT HAS H/O OF BRAIN TUMOR RECOMMENDATIONS: 1. FOR QUALITY OF LIFE, SLOWLY INITIATE SOFT, EASY CHEW WITH THIN LIQUIDS DIET 2. ASPIRATION PRECAUTIONS WITH SUPERVISION 3. VIDEOSWALLOW STUDY IF NEEDED(HOLD IT OFF FOR NOW). D/W PT, PT'S DAUGHTER AND THE STAFF POSTED ASPIRATION PRECAUTIONS SIGN.
[2019-01-12] MEDS ORDERED: D5NS 1,000 ML IV SCH (12:17)
--- NOTE | 2019-01-12 12:19 | Consultation ---
History of Present Illness General Date patient seen: Jan 12, 2019 Chief Complaint: Gastrointestinal Bleed Present Illness HPI 83 yo female with PMHx of DM, HTN and a Cervical spinal tumor s/p recent resection presented to the ED with CC rectal bleeding, apparently she received an enema and afterwards had bleeding per rectum. She reports no fever , hills, abdominal pain. She is incontinent of urine has a chronic indwelling Mahajan catheter. Allergies: Coded Allergies: No Known Allergies (Unverified , 12/16/18) Medication History Scheduled Amlodipine Besylate* (Amlodipine Besylate*), 5 MG ORAL DAILY, (Reported) Bethanechol* (Bethanechol*), 25 MG ORAL THREE TIMES A DAY, (Reported) Ciprofloxacin (Cipro), 250 MG PO EVERY 12 HOURS Losartan Potassium* (Losartan Potassium*), 50 MG ORAL DAILY, (Reported) Ondansetron (Zofran), 4 MG ORAL Q6H Tamsulosin Hcl (Tamsulosin Hcl*), 0.4 MG ORAL BEDTIME, (Reported) Tramadol Hcl (Tramadol Hcl), 50 MG ORAL DAILY, (Reported) Vitamin D (Vitamin D3), 1,000 UNITS ORAL DAILY, (Reported) Scheduled PRN Ondansetron Odt* (Zofran Odt*), 4 MG ORAL Q6H PRN for Nausea & Vomiting, ( Reported) Miscellaneous Medications Baclofen (Baclofen), 10 GM MC, (Reported) Loperamide Hcl (Loperamide), 2 MG PO, (Reported) Patient History Healthcare decision maker Resuscitation status Full Code Advanced Directive on File Past Medical/Surgical History Past Medical/Surgical History: (1) Diabetes mellitus, type II (2) Cervical spine tumor (3) Incontinence (4) Obesity (5) HTN (hypertension) Review of Systems Hematologic/Lymphatic: Reports: no symptoms Physical Exam General Appearance: WD/WN, no apparent distress Lines, tubes and drains: peripheral HEENT: normocephalic, anicteric Neck: non-tender, normal alignment Breasts: no masses Cardiovascular/Chest: normal rate, no JVD Abdomen: normal bowel sounds Genitourinary/Rectal: normal genital exam Last 24 Hour Vital Signs Date Time Temp Pulse Resp B/P (MAP) Pulse Ox O2 Delivery O2 Flow Rate FiO2 01/12/19 10:13 Room Air 01/12/19 09:00 Room Air 01/12/19 06:26 97.0 72 18 130/80 (97) 96 01/12/19 05:15 98.1 77 17 134/84 98 Room Air 01/12/19 05:15 98.1 77 17 134/84 98 Room Air 01/12/19 04:22 90 15 Room Air 01/11/19 23:55 98.5 90 15 146/84 98 Room Air 01/11/19 23:30 98.1 88 12 168/86 98 Room Air Intake and Output 01/11/19 01/12/19 19:00 07:00 Intake Total 350 ml Balance 350 ml Intake Oral 350 ml # Voids 2 Laboratory Tests Test 01/12/19 00:00 01/12/19 03:15 White Blood Count 7.8 K/UL (4.8-10.8) Red Blood Count 3.59 M/UL (4.20-5.40) L Hemoglobin 10.9 G/DL (12.0-16.0) L Hematocrit 33.7 % (37.0-47.0) L Mean Corpuscular Volume 94 FL (80-99) Mean Corpuscular Hemoglobin 30.3 PG (27.0-31.0) Mean Corpuscular Hemoglobin Concent 32.3 G/DL (32.0-36.0) Red Cell Distribution Width 13.0 % (11.6-14.8) Platelet Count 411 K/UL (150-450) Mean Platelet Volume 5.3 FL (6.5-10.1) L Neutrophils (%) (Auto) 68.6 % (45.0-75.0) Lymphocytes (%) (Auto) 19.7 % (20.0-45.0) L Monocytes (%) (Auto) 7.2 % (1.0-10.0) Eosinophils (%) (Auto) 3.0 % (0.0-3.0) Basophils (%) (Auto) 1.5 % (0.0-2.0) Sodium Level 138 MMOL/L (136-145) Potassium Level 4.8 MMOL/L (3.5-5.1) Chloride Level 101 MMOL/L (98-107) Carbon Dioxide Level 29 MMOL/L (21-32) Anion Gap 8 mmol/L (5-15) Blood Urea Nitrogen 13 mg/dL (7-18) Creatinine 0.6 MG/DL (0.55-1.30) Estimat Glomerular Filtration Rate mL/min (>60) Glucose Level 194 MG/DL (74-106) H Calcium Level 9.2 MG/DL (8.5-10.1) Total Bilirubin 0.1 MG/DL (0.2-1.0) L Aspartate Amino Transf (AST/SGOT) 14 U/L (15-37) L Alanine Aminotransferase (ALT/SGPT) 15 U/L (12-78) Alkaline Phosphatase 81 U/L (46-116) Total Protein 6.8 G/DL (6.4-8.2) Albumin 3.0 G/DL (3.4-5.0) L Globulin 3.8 g/dL Albumin/Globulin Ratio 0.8 (1.0-2.7) L Prothrombin Time 10.2 SEC (9.30-11.50) Prothromb Time International Ratio 1.0 (0.9-1.1) Activated Partial Thromboplast Time 29 SEC (23-33) Height (Feet): 5 Height (Inches): 3.00 Weight (Pounds): 140 Assessment/Plan Problem List: (1) Rectal bleed ICD Codes: K62.5 - Hemorrhage of anus and rectum SNOMED: 19867562 (2) HTN (hypertension) ICD Codes: I10 - Essential (primary) hypertension SNOMED: 63388695 (3) Obesity ICD Codes: E66.9 - Obesity, unspecified SNOMED: 829498690, 169653720 (4) Diabetes mellitus, type II ICD Codes: E11.9 - Type 2 diabetes mellitus without complications SNOMED: 65225319 (5) Cervical spine tumor ICD Codes: D49.2 - Neoplasm of unspecified behavior of bone, soft tissue, and skin SNOMED: 459636814 (6) Incontinence ICD Codes: R32 - Unspecified urinary incontinence SNOMED: 19421201 Assessment/Plan NPO iv fluids GI evaluation surgical evaluation prbc prn check h/h daily sliding scale insulin coverage dvt prophylaxis. Anival Tolentino MD Jan 12, 2019 12:19
[2019-01-12] MEDS ORDERED: Mylanta II UD 30ml ORAL PRN (12:30)
--- NOTE | 2019-01-12 12:38 | History & Physical ---
History and Physical History & Physicial Dictated for Int Med-Dr Olivares no. [id number]. Devin Rojas MD Jan 12, 2019 12:38
--- NOTE | 2019-01-12 12:42 | GI Initial Consult Note ---
History of Present Illness General Date patient seen: Jan 12, 2019 Time patient seen: 12:37 Reason for Hospitalization: Gastrointestinal Bleed Referring physician: GABE NAILS Reason for Consultation: GI BLEED Present Illness HPI Patient is an 83-year-old female brought in by EMS after increased rectal bleeding. Patient prior history of endoscopy and colonoscopy and had been transfused 6 units at [facility] after prior episode of bleeding. Patient had recent been given enema and was noted to have subsequent increased maroon colored stool. Patient was noted to have prior spinal surgery at [facility] she was noted to have some mass and patient chronically wears a c-collar. She was noted to have bilateral lower extremity weakness. GI consulted for reported rectal bleeding. Patient seen, awake alert and oriented x4 with family at bedside stress. No active signs or symptoms of nausea or vomiting. MD had performed a rectal exam yesterday, with positive guaiac. The patient was a recent admission here in [place] approximately 3 weeks ago. The patient has undergone an endoscopy in which noted with esophagitis. The patient was scheduled for colonoscopy however only a flexible sigmoidoscopy was performed due to a poor prep. At that time patient's hemoglobin was stable and the patient was discharged. Labs reviewed; hemoglobin 10.2. No leukocytosis. No transaminitis. Home Meds Active Scripts Ondansetron (Zofran) 4 Mg Tablet, 4 MG ORAL Q6H for 30 Days, TAB Prov:Anival Tolentino MD 12/21/18 Ciprofloxacin (CIPRO) 250 Mg/5 Ml Catherine..rec, 250 MG PO EVERY 12 HOURS for 3 Days, #6 CAP Prov:Anival Tolentino MD 12/21/18 Reported Medications Loperamide Hcl (LOPERAMIDE) 2 Mg Capsule, 2 MG PO, CAP 12/16/18 Tamsulosin Hcl (TAMSULOSIN HCL*) 0.4 Mg Cap.er.24h, 0.4 MG ORAL BEDTIME, CAP 12/16/18 Baclofen (BACLOFEN) 5 Gm Powder, 10 GM MC, GM 12/16/18 Amlodipine Besylate* (AMLODIPINE BESYLATE*) 5 Mg Tablet, 5 MG ORAL DAILY, TAB 12/16/18 Losartan Potassium* (LOSARTAN POTASSIUM*) 50 Mg Tablet, 50 MG ORAL DAILY, TAB 12/16/18 Tramadol Hcl (TRAMADOL HCL) 100 Mg Tab.er.24h, 50 MG ORAL DAILY, TAB 12/16/18 Bethanechol* (BETHANECHOL*) 10 Mg Tablet, 25 MG ORAL THREE TIMES A DAY, TAB 12/16/18 Ondansetron Odt* (ZOFRAN ODT*) 8 Mg Tab.rapdis, 4 MG ORAL Q6H PRN for Nausea & Vomiting, #30 TAB 12/16/18 Vitamin D (Vitamin D3) 400 Unit Tablet, 1000 UNITS ORAL DAILY, TAB 12/16/18 Med list reviewed/reconciled: Yes Allergies: Coded Allergies: No Known Allergies (Unverified , 12/16/18) Patient History History Provided By: Patient, Medical Record PMH Narrative Past Medical History: see triage record Last Menstrual Period: SANGEETHA Reviewed Nursing Documentation: PMH: Agreed; PSxH: Agreed Nursing Documentation-PMH Hx Hypertension: Yes Hx Diabetes: Yes Hx Cancer: No Hx Gastrointestinal Problems: No Hx Neurological Problems: Yes - Brain tumor removed Nov 2013 Social History: Denies: smoking, alcohol use, drug use, other Review of Systems All Other Systems: negative except mentioned in HPI Physical Exam Vital Signs Date Time Temp Pulse Resp B/P (MAP) Pulse Ox O2 Delivery O2 Flow Rate FiO2 01/11/19 23:30 98.1 88 12 168/86 98 Room Air Sp02 EP Interpretation: reviewed, normal Labs Laboratory Tests Test 01/12/19 00:00 01/12/19 03:15 White Blood Count 7.8 K/UL (4.8-10.8) Red Blood Count 3.59 M/UL (4.20-5.40) L Hemoglobin 10.9 G/DL (12.0-16.0) L Hematocrit 33.7 % (37.0-47.0) L Mean Corpuscular Volume 94 FL (80-99) Mean Corpuscular Hemoglobin 30.3 PG (27.0-31.0) Mean Corpuscular Hemoglobin Concent 32.3 G/DL (32.0-36.0) Red Cell Distribution Width 13.0 % (11.6-14.8) Platelet Count 411 K/UL (150-450) Mean Platelet Volume 5.3 FL (6.5-10.1) L Neutrophils (%) (Auto) 68.6 % (45.0-75.0) Lymphocytes (%) (Auto) 19.7 % (20.0-45.0) L Monocytes (%) (Auto) 7.2 % (1.0-10.0) Eosinophils (%) (Auto) 3.0 % (0.0-3.0) Basophils (%) (Auto) 1.5 % (0.0-2.0) Sodium Level 138 MMOL/L (136-145) Potassium Level 4.8 MMOL/L (3.5-5.1) Chloride Level 101 MMOL/L (98-107) Carbon Dioxide Level 29 MMOL/L (21-32) Anion Gap 8 mmol/L (5-15) Blood Urea Nitrogen 13 mg/dL (7-18) Creatinine 0.6 MG/DL (0.55-1.30) Estimat Glomerular Filtration Rate mL/min (>60) Glucose Level 194 MG/DL (74-106) H Calcium Level 9.2 MG/DL (8.5-10.1) Total Bilirubin 0.1 MG/DL (0.2-1.0) L Aspartate Amino Transf (AST/SGOT) 14 U/L (15-37) L Alanine Aminotransferase (ALT/SGPT) 15 U/L (12-78) Alkaline Phosphatase 81 U/L (46-116) Total Protein 6.8 G/DL (6.4-8.2) Albumin 3.0 G/DL (3.4-5.0) L Globulin 3.8 g/dL Albumin/Globulin Ratio 0.8 (1.0-2.7) L Prothrombin Time 10.2 SEC (9.30-11.50) Prothromb Time International Ratio 1.0 (0.9-1.1) Activated Partial Thromboplast Time 29 SEC (23-33) General Appearance: well appearing, no apparent distress, alert Head: normocephalic EENT: PERRL/EOMI, normal ENT inspection Neck: supple Respiratory: normal breath sounds, no respiratory distress Cardiovascular: normal rate Gastrointestinal: normal inspection, non tender, soft, normal bowel sounds, non -distended Rectal: deferred Genitourinary: no CVA tenderness Musculoskeletal: normal inspection, back normal Neurologic: normal inspection, alert, oriented x3, responsive Psychiatric: normal inspection, judgement/insight normal, memory normal Skin: normal inspection, normal color, no rash, warm/dry, palpation normal, well hydrated Lymphatic: normal inspection, no adenopathy Current Medications Current Medications Medications (Trade) Dose Ordered Sig/Luda Route PRN Reason Start Time Stop Time Status Last Admin Dose Admin Acetaminophen (Tylenol) 650 mg Q4H PRN ORAL fever 01/12/19 12:30 02/11/19 12:29 Al Hydroxide/Mg Hydroxide (Mylanta II) 30 ml Q6H PRN ORAL dyspepsia 01/12/19 12:30 02/11/19 12:29 Dextrose (Dextrose 50%) 25 ml Q30M PRN IV Hypoglycemia 01/12/19 12:30 02/11/19 12:29 Dextrose (Dextrose 50%) 50 ml Q30M PRN IV Hypoglycemia 01/12/19 12:30 02/11/19 12:29 Dextrose/Sodium Chloride 1,000 ml @ 100 mls/hr Q10H IV 01/12/19 12:17 02/11/19 12:16 Diphenhydramine HCl (Benadryl) 25 mg Q6H PRN ORAL Itching/Pruritis 01/12/19 12:30 02/11/19 12:29 Ondansetron HCl (Zofran) 4 mg Q6H PRN IVP Nausea & Vomiting 01/12/19 12:30 02/11/19 12:29 Phytonadione 10 mg/Dextrose 56 ml @ 110 mls/hr ONCE ONCE IVPB 01/12/19 14:00 01/12/19 14:30 Temazepam (Restoril) 15 mg HSPRN PRN ORAL Insomnia 01/12/19 12:30 01/19/19 12:29 GI: Plan Problems: (1) Esophagitis (2) Gastrointestinal hemorrhage (3) Rectal bleed (4) Obesity Plan Recent history (3 weeks) of failed colonoscopy due to poor prep, status post flexible sigmoidoscopy noted with a hemorrhoid. Will prep patient for repeat colonoscopy tomorrow Clear liquid diet, n.p.o. at midnight Hold all blood thinners PPI PRN transfusions We will follow with additional recommendations post procedure Discussed with Dr. Addison. Thank you for this patient referral, we will follow. The patient was seen and examined at bedside and all new and available data was reviewed in the patients chart. I agree with the above findings, impression and plan. (Patient seen earlier today. Signature stamp does not reflect patient encounter time.). - MD Yaritza Holman AnhLeslye PERALTA Jan 12, 2019 12:42
[2019-01-12 12:50] LABS: % IRON SATURATION 8 % (15-50); IRON 23 ug/dL (50-175); TOTAL IRON BINDING CAPACITY 273 ug/dL (250-450)
[2019-01-12] MEDS ORDERED: Phytonadione 10 MG in D5W 55 ML IVPB ONE (14:00)
[2019-01-12] MEDS ORDERED: Nulytely 4L ORAL SCH (16:00)
[2019-01-12] MEDS ORDERED: Bisacodyl EC 5mg tab ORAL SCH (16:00)
--- NOTE | 2019-01-12 16:45 | History and Physical Report ---
DATE OF ADMISSION: 01/12/2019 CHIEF COMPLAINT: The patient is an 83-year-old female, who presents with chief complaint of rectal bleeding. HISTORY OF PRESENT ILLNESS: The patient has a history of gastrointestinal hemorrhage in 2017. The patient was admitted to [facility]. The patient underwent colonoscopy and endoscopy. Biopsies were negative. The patient received six units of packed RBCs for anemia during that hospitalization. The patient states it began on 01/07/2019. The patient began to experience brown and dark stools. The patient went to see her private physician yesterday. The patient was given an enema. The patient was told she was guaiac-positive. Since yesterday, the patient has experienced copious amounts of bright red blood per rectum. Daughter thinks it may have been close to a glassful. [facility]. The patient is admitted with chief complaint of bright red blood per rectum. REVIEW OF SYSTEMS: CONSTITUTIONAL: The patient denies weight loss or weight gain. The patient denies fevers or chills. HEENT: The patient denies ear or throat pain. The patient denies headache. CARDIOVASCULAR: The patient denies palpitations or chest pain. CHEST: The patient denies wheeze or shortness of breath. ABDOMEN: The patient complains of bright red blood per rectum as above. The patient denies nausea, vomiting, diarrhea, or constipation. GENITOURINARY: The patient denies dysuria or increased frequency of urination. NEUROMUSCULAR: The patient denies seizures or generalized weakness. PAST MEDICAL HISTORY: Significant for: 1. Gastrointestinal hemorrhage as above. 2. 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 3. Diabetes type 2, diet controlled. 4. Hypertension. PAST SURGICAL HISTORY: Significant for: 1. Resection of cervical spine tumor on 11/29/2018. 2. Total abdominal hysterectomy. CURRENT MEDICATIONS: 1. Amlodipine 5 mg p.o. daily. 2. Baclofen 10 mg p.o. three times daily. p.r.n. 3. Bethanechol 10 mg p.o. three times daily. 4. Imodium 2 mg p.o. p.r.n. 5. Losartan 50 mg p.o. daily. 6. Zofran 8 mg p.o. q.6 h. p.r.n. 7. Flomax 0.4 mg p.o. daily. 8. Tramadol 100 mg p.o. q.6 h. p.r.n. 9. Vitamin D 400 units p.o. daily. ALLERGIES: No known drug allergies. SOCIAL HISTORY: The patient is single and lives with her adult daughter. The patient denies tobacco or alcohol use. PHYSICAL EXAMINATION: VITAL SIGNS: Temperature 98.5, respirations 15, pulse 90, and blood pressure 146/84. GENERAL: The patient is a well-developed and well-nourished female, in no apparent distress. HEENT: Eyes, pupils are equal and responsive to light and accommodation. Extraocular movements are intact. NECK: Supple without lymphadenopathy. CHEST: Lungs are clear to auscultation bilaterally without wheezes or rales. CARDIOVASCULAR: Regular rhythm and rate. S1-S2 are normal without murmurs, rubs, gallops. ABDOMEN: Soft, nontender, and nondistended. Positive bowel sounds. No evidence of hepatosplenomegaly. Currently, no rebound or guarding noted. EXTREMITIES: Negative for clubbing, cyanosis, or edema. RECTAL/GENITAL: Refused. NEUROLOGIC: Cranial nerves II through XII are grossly intact without focal deficits. Motor strength is 5/5 bilaterally. Deep tendon reflexes are 2+ plantar. LABORATORY STUDIES: WBC 7.8, hemoglobin 10.9, hematocrit 33.7, and platelets 411,000. Sodium 138, potassium 4.8, chloride 101, CO2 29, BUN 13, and creatinine 0.6. Glucose 194. ASSESSMENT: This is an 83-year-old female with: 1. Rectal bleeding. 2. Hypertension. 3. Diabetes type 2. 4. History of cervical spine tumor. TREATMENT: 1. Rectal bleeding. A Gastroenterology consultation has been obtained with Dr. Mario Addison. The patient has been started empirically on Protonix. We will follow recommendations of Gastroenterology. 2. Hypertension. Continue amlodipine as above. 3. Diabetes. The patient states her diabetes is diet controlled. The patient's current fingerstick blood sugars are running in the upper 100s. NovoLog sliding scale has been instituted. 4. Cervical spine tumor. The patient is status post resection. Devin Rojas M.D. DR: COURTNEY JOB#: [id number] CC:
--- NOTE | 2019-01-12 17:18 | Cardiology Report ---
APPROVED REPORT EKG Measurement Heart [id number] Normal sinus rhythm Left axis deviation Possible Lateral infarct, age undetermined Abnormal ECG
--- NOTE | 2019-01-12 19:33 | NUR ---
HAND-OFF: Report given to KYLER Langford.
--- NOTE | 2019-01-12 19:34 | NUR ---
NURSE NOTES: Received report from KYLER Thomas. Patient in bed awake with no signs of acute distress. Respiration even and non labored on room air. No SOB noted. Vitals stable. Bed in lowest position. Call light within reach. All needs attended and met. Will continue plan of care.
[2019-01-12 20:00] VITALS: BP 129/74
[2019-01-12] MEDS ORDERED: Fleet's Enema 133ml RECTAL SCH (23:00)
[2019-01-13] VITALS (9 sets, daily range): BP systolic 110–172; BP diastolic 59–84
--- NOTE | 2019-01-13 07:05 | NUR ---
NURSE NOTES: Received report from Kelly Langford. Pt is laying in bed watching TV. No distress noted. Bed is in lowest position, side rails up X2, and call light is within reach. Will continue to monitor.
--- NOTE | 2019-01-13 07:07 | NUR ---
HAND-OFF: Report given to KYLER Moran. Patient is stable. No signs of acute distress.
--- NOTE | 2019-01-13 07:09 | NUR ---
CASE MANAGEMENT:REVIEW 01/13/19 SI: GIB 98.0 78 19 110/68 99% ON RA LABS CURRENTLY PENDING IS: IVF@75/HR : TELEMETRY STATUS PLAN: NPO SCHEDULED FOR COLONOSCOPY INTERQUAL CRITERIA MET
[2019-01-13 07:15] LABS: ALANINE AMINOTRANSFERASE 11 U/L (12-78); ALBUMIN 2.5 G/DL (3.4-5.0); ALBUMIN/GLOBULIN RATIO 0.8 (1.0-2.7); ALKALINE PHOSPHATASE 68 U/L (46-116); AMYLASE 25 U/L (25-115); ANION GAP 7 mmol/L (5-15); ASPARTATE AMINO TRANSFERASE 12 U/L (15-37); BASOPHILS % (AUTO) 2.1 % (0.0-2.0); BILIRUBIN,TOTAL 0.2 MG/DL (0.2-1.0); BLOOD UREA NITROGEN 10 mg/dL (7-18); CALCIUM 8.8 MG/DL (8.5-10.1); CARBON DIOXIDE 27 MMOL/L (21-32); CHLORIDE 106 MMOL/L (98-107); CREATININE 0.5 MG/DL (0.55-1.30); EOSINOPHILS % (AUTO) 4.3 % (0.0-3.0); HEMATOCRIT 28.5 % (37.0-47.0); HEMOGLOBIN 9.5 G/DL (12.0-16.0); LYMPHOCYTES % (AUTO) 27.1 % (20.0-45.0); MEAN CORPUSCULAR VOLUME 93 FL (80-99); MONOCYTES % (AUTO) 7.2 % (1.0-10.0); NEUTROPHILS % (AUTO) 59.4 % (45.0-75.0); PLATELET COUNT 360 K/UL (150-450); POTASSIUM 3.5 MMOL/L (3.5-5.1); RED BLOOD COUNT 3.06 M/UL (4.20-5.40); RED CELL DISTRIBUTION WIDTH 12.6 % (11.6-14.8); SODIUM 140 MMOL/L (136-145); WHITE BLOOD COUNT 6.1 K/UL (4.8-10.8)
--- NOTE | 2019-01-13 11:08 | Pulmonology Progress Note ---
Assessment/Plan Problems: (1) Rectal bleed (2) HTN (hypertension) (3) Obesity (4) Diabetes mellitus, type II (5) Cervical spine tumor (6) Incontinence Assessment/Plan NPO iv fluids GI evaluation for colonoscopy today surgical evaluation prbc prn check h/h daily, stable so far sliding scale insulin coverage dvt prophylaxis. Subjective ROS Limited/Unobtainable: No Constitutional: Reports: no symptoms Respiratory: Reports: no symptoms Allergies: Coded Allergies: No Known Allergies (Unverified , 12/16/18) Objective Last 24 Hour Vital Signs Date Time Temp Pulse Resp B/P (MAP) Pulse Ox O2 Delivery O2 Flow Rate FiO2 01/13/19 04:00 70 01/13/19 04:00 98.0 78 19 110/68 (82) 99 01/13/19 00:00 97.7 78 20 128/59 (82) 96 01/13/19 00:00 83 01/12/19 21:00 Room Air 01/12/19 20:00 77 01/12/19 20:00 97.6 75 16 129/74 (92) 97 01/12/19 16:00 77 01/12/19 12:00 74 Intake and Output 01/12/19 01/13/19 19:00 07:00 Intake Total 120 ml 330 ml Balance 120 ml 330 ml Intake Oral 120 ml IV Total 330 ml # Voids 3 # Bowel Movements 1 General Appearance: WD/WN HEENT: normocephalic, atraumatic Respiratory/Chest: chest wall non-tender, lungs clear Breasts: no masses Cardiovascular: normal peripheral pulses Abdomen: normal bowel sounds, soft, non tender Neurologic/Psychiatric: recreation facilities supervisor II-XII grossly normal Laboratory Tests 01/13/19 06:10: White Blood Count 6.1, Red Blood Count 3.06L, Hemoglobin 9.5L, Hematocrit 28.5L , Mean Corpuscular Volume 93, Mean Corpuscular Hemoglobin 31.0, Mean Corpuscular Hemoglobin Concent 33.3, Red Cell Distribution Width 12.6, Platelet Count 360, Mean Platelet Volume 5.3L, Neutrophils (%) (Auto) 59.4, Lymphocytes ( %) (Auto) 27.1, Monocytes (%) (Auto) 7.2, Eosinophils (%) (Auto) 4.3H, Basophils (%) (Auto) 2.1H, Prothrombin Time 11.0, Prothromb Time International Ratio 1.0, Activated Partial Thromboplast Time 28, Sodium Level 140, Potassium Level 3.5, Chloride Level 106, Carbon Dioxide Level 27, Anion Gap 7, Blood Urea Nitrogen 10, Creatinine 0.5L, Estimat Glomerular Filtration Rate , Glucose Level 121H, Calcium Level 8.8, Total Bilirubin 0.2, Aspartate Amino Transf (AST/ SGOT) 12L, Alanine Aminotransferase (ALT/SGPT) 11L, Alkaline Phosphatase 68, Total Protein 5.8L, Albumin 2.5L, Globulin 3.3, Albumin/Globulin Ratio 0.8L, Amylase Level 25, Lipase 47L Current Medications Medications (Trade) Dose Ordered Sig/Luda Route PRN Reason Start Time Stop Time Status Last Admin Dose Admin Acetaminophen (Tylenol) 650 mg Q4H PRN ORAL fever 01/12/19 12:30 02/11/19 12:29 Al Hydroxide/Mg Hydroxide (Mylanta II) 30 ml Q6H PRN ORAL dyspepsia 01/12/19 12:30 02/11/19 12:29 Dextrose (Dextrose 50%) 25 ml Q30M PRN IV Hypoglycemia 01/12/19 12:30 02/11/19 12:29 Dextrose (Dextrose 50%) 50 ml Q30M PRN IV Hypoglycemia 01/12/19 12:30 02/11/19 12:29 Diphenhydramine HCl (Benadryl) 25 mg Q6H PRN ORAL Itching/Pruritis 01/12/19 12:30 02/11/19 12:29 Ondansetron HCl (Zofran) 4 mg Q6H PRN IVP Nausea & Vomiting 01/12/19 12:30 02/11/19 12:29 Sodium Chloride 1,000 ml @ 75 mls/hr [id number] IV 01/12/19 12:45 02/11/19 12:44 01/13/19 04:36 Temazepam (Restoril) 15 mg HSPRN PRN ORAL Insomnia 01/12/19 12:30 01/19/19 12:29 Anival Tolentino MD Jan 13, 2019 11:08
--- NOTE | 2019-01-13 11:57 | Diagnostic Imaging Report ---
APPROVED REPORT CPT Code: 06874 Present Symptoms Comments: BILATERAL LEGS PAIN. BILATERAL: Imaging reveals a patent deep venous system bilaterally. There is no evidence of thrombus within the femoral, popliteal or tibial segments. The greater saphenous veins are also within normal limits. Doppler indicates normal spontaneous flow within these segments.
[2019-01-13] MEDS ORDERED: Propofol 200mg/20ml IV ONE (13:00)
[2019-01-13] MEDS ORDERED: fentaNYL 100 mcg/2 mL IV ONE (13:00)
--- NOTE | 2019-01-13 13:00 | NUR ---
NURSE NOTES: Report given to KYLER Brooks prior to transfer. Hear monitor was removed and returned to ND. No distress noted at time of transfer. Daughter was at bedside.
--- NOTE | 2019-01-13 13:08 | Pre-Procedure Note/Attestation ---
Pre-Procedure Note/Attestation Complete Prior to Procedure Planned Procedure: not applicable Procedure Narrative: colonoscopy Indications for Procedure Pre-Operative Diagnosis: gib Attestation I attest that I discussed the nature of the procedure; its benefits; risks and complications; and alternatives (and the risks and benefits of such alternatives ), prior to the procedure, with the patient (or the patient's legal nutrition representative). I attest that, if there was a reasonable possibility of needing a blood transfusion, the patient (or the patient's legal nutrition representative) was given the [facility] standardized written summary, pursuant to the Mello Pinky Blood Safety Act ([place] Health and Safety Code # 1645, as amended). I attest that I re-evaluated the patient just prior to the surgery and that there has been no change in the patient's H&P, except as documented below: Mario Addison MD Jan 13, 2019 13:08
[2019-01-13] MEDS ORDERED: NS 500ML IVPB ONE (13:15)
--- NOTE | 2019-01-13 13:30 | NUR ---
REHAB MED PT NOTE CONSULT RECEIVED, CLAYTON COMPLTED, PATIENT WILL BENEFIT FROM SKILLED PT DURING STAY FOR RETURN TO [facility]. RECOMMEND HOME 24HR CARE VS SNF AT [place]. PLAN OF CARE INITIATED. ARNOLDO ON. JUAN DAVID EUGENE PT DPT Addendum: 01/13/19 at 1331 by JUAN DAVID EUGENE PT Amended: Links added.
--- NOTE | 2019-01-13 13:39 | Anethesia Preoperative Eval ---
Anesthesia Pre-op PMH/ROS General Date of Evaluation: Jan 13, 2019 Time of Evaluation: 13:10 Anesthesiologist: Willis ASA Score: ASA 4 Mallampati Score Class I : Soft palate, uvula, fauces, pillars visible Class II: Soft palate, uvula, fauces visible Class III: Soft palate, base of uvula visible Class IV: Only hard plate visible Mallampati Classification: Class II Surgeon: Cyn Diagnosis: GI bleed Surgical Procedure: Colonoscopy Anesthesia History: none Family History: no anesthesia problems Allergies: Coded Allergies: No Known Allergies (Unverified , 12/16/18) Medications: see eMAR Patient NPO?: Yes Past Medical History Cardiovascular: Reports: HTN; Denies: CAD, IL, valve dz, arrhythmia, other Pulmonary: Denies: asthma, COPD, AJAY, other Gastrointestinal/Genitourinary: Reports: GERD; Denies: CRI, ESRD, other Neurologic/Psychiatric: Reports: dementia - mild, CVA; Denies: depression/anxiety, TIA, other Endocrine: Reports: hypothyroidism; Denies: DM, steroids, other HEENT: Reports: cataract (L), cataract (R); Denies: glaucoma, [place] (L), [place] (R), other Hematology/Immune: Reports: anemia; Denies: DVT, bleeding disorder, other Musculoskeletal/Integumentary: Reports: DJD, other - paraplegia PMH Narrative: as above PSxH Narrative: see H&P Anesthesia Pre-op Phys. Exam Physician Exam Last Vital Signs Date Time Temp Pulse Resp B/P (MAP) Pulse Ox O2 Delivery O2 Flow Rate FiO2 01/13/19 08:00 98.2 76 20 132/60 (84) 96 01/12/19 21:00 Room Air Constitutional: NAD Neurologic: other - unable to obtaine Cardiovascular: RRR, no M/R/G Respiratory: CTA Gastrointestinal: S/NT/ND Airway Exam Mallampati Score: Class III MO: limited Neck: stiff ROM: limited Teeth: missing Dentures: no upper, no lower Anesthesia Pre-op A/P Labs Hematology Test 01/13/19 06:10 White Blood Count 6.1 K/UL (4.8-10.8) Red Blood Count 3.06 M/UL (4.20-5.40) L Hemoglobin 9.5 G/DL (12.0-16.0) L Hematocrit 28.5 % (37.0-47.0) L Mean Corpuscular Volume 93 FL (80-99) Mean Corpuscular Hemoglobin 31.0 PG (27.0-31.0) Mean Corpuscular Hemoglobin Concent 33.3 G/DL (32.0-36.0) Red Cell Distribution Width 12.6 % (11.6-14.8) Platelet Count 360 K/UL (150-450) Mean Platelet Volume 5.3 FL (6.5-10.1) L Neutrophils (%) (Auto) 59.4 % (45.0-75.0) Lymphocytes (%) (Auto) 27.1 % (20.0-45.0) Monocytes (%) (Auto) 7.2 % (1.0-10.0) Eosinophils (%) (Auto) 4.3 % (0.0-3.0) H Basophils (%) (Auto) 2.1 % (0.0-2.0) H Coagulation Test 01/13/19 06:10 Prothrombin Time 11.0 SEC (9.30-11.50) Prothromb Time International Ratio 1.0 (0.9-1.1) Activated Partial Thromboplast Time 28 SEC (23-33) Chemistry Test 01/13/19 06:10 Sodium Level 140 MMOL/L (136-145) Potassium Level 3.5 MMOL/L (3.5-5.1) Chloride Level 106 MMOL/L (98-107) Carbon Dioxide Level 27 MMOL/L (21-32) Anion Gap 7 mmol/L (5-15) Blood Urea Nitrogen 10 mg/dL (7-18) Creatinine 0.5 MG/DL (0.55-1.30) L Estimat Glomerular Filtration Rate mL/min (>60) Glucose Level 121 MG/DL (74-106) H Calcium Level 8.8 MG/DL (8.5-10.1) Total Bilirubin 0.2 MG/DL (0.2-1.0) Aspartate Amino Transf (AST/SGOT) 12 U/L (15-37) L Alanine Aminotransferase (ALT/SGPT) 11 U/L (12-78) L Alkaline Phosphatase 68 U/L (46-116) Total Protein 5.8 G/DL (6.4-8.2) L Albumin 2.5 G/DL (3.4-5.0) L Globulin 3.3 g/dL Albumin/Globulin Ratio 0.8 (1.0-2.7) L Amylase Level 25 U/L (25-115) Lipase 47 U/L (73-393) L Studies Pre-op Studies: EKG - SR Risk Assessment & Plan Assessment: ASA 4 Plan: MAC Status Change Before Surgery: No Pre-Antibiotics Drug: none Gerardo Pedro MD Jan 13, 2019 13:39
--- NOTE | 2019-01-13 13:41 | Immediate Post-Op Evaluation ---
Immediate Post-Op Evalulation Immediate Post-Op Evalulation Procedure: Colonoscopy Date of Evaluation: Jan 13, 2019 Time of Evaluation: 13:40 IV Fluids: 200 Blood Products: none Estimated Blood Loss: none Urinary Output: none Blood Pressure Systolic: 132 Blood Pressure Diastolic: 56 Pulse Rate: 72 Respiratory Rate: 20 O2 Sat by Pulse Oximetry: 99 Temperature (Fahrenheit): 97.6 Pain Score (1-10): 1 Nausea: No Vomiting: No Complications none Patient Status: awake, patent, none Hydration Status: adequate Gerardo Pedro MD Jan 13, 2019 13:41
--- NOTE | 2019-01-13 14:11 | Endoscopy Procedure Note ---
Endoscopy Procedure Note General Indication for Procedure: RECTAL BLEED Procedures Performed: colonoscopy Operative Findings/Diagnosis: POOR PREP Specimen: yes Pt Tolerated Procedure Well: Yes Estimated Blood Loss: none Anesthesia Anesthesiologist: GIANA Anesthesia: MAC Inserted Devices Implant(s) used?: No Quality Quality of Bowel Preparation: Poor Did scope reach the cecum?: No Why scope didn't reach cecum: Bowel preparation poor Was there any complications?: No GI Core Measures 50 yrs or older w/o bx or poly: Not Applicable 10yrs. F/U not recommended: Not Applicable Mario Addison MD Jan 13, 2019 14:11
--- NOTE | 2019-01-13 15:04 | 48 Hour Post Anesthesia Eval ---
Post Anesthesia Evaluation Procedure: Colonoscopy Date of Evaluation: Jan 13, 2019 Time of Evaluation: 15:03 Blood Pressure Systolic: 132 0: 64 Pulse Rate: 68 Respiratory Rate: 20 Temperature (Fahrenheit): 97.6 O2 Sat by Pulse Oximetry: 97 Airway: patent Nausea: No Vomiting: No Pain Intensity: 2 Hydration Status: adequate Cardiopulmonary Status: stable Mental Status/LOC: patient returned to baseline Follow-up Care/Observations: n/a Post-Anesthesia Complications: none Follow-up care needed: N/A Gerardo Pedro MD Jan 13, 2019 15:04
--- NOTE | 2019-01-13 15:50 | NUR ---
NURSE NOTES: Received report from KYLER Moran from tele prior to pt arriving to 3E unit. Report endorsed to KYLER Guerrier.
--- NOTE | 2019-01-13 16:30 | Procedure Note ---
DATE OF PROCEDURE: 01/13/2019 SURGEON: Mario Addison M.D. PROCEDURE: Colonoscopy. ANESTHESIA: Per Dr. Gerardo Pedro. INSTRUMENT: Olympus adult flexible colonoscope. INDICATION: Rectal bleeding. REASON FOR PROCEDURE: The procedure, risks, benefits, and possible consequences, including hemorrhage, aspiration, perforation and infection, and alternative treatments, were explained to the patient/legal guardian by Dr. Mario Addison and the patient/legal guardian understood and accepted these risks. PROCEDURE IN DETAIL: After informed consent was obtained and the patient was adequately sedated, first rectal exam was performed, which showed positive for external and internal hemorrhoids. Then, the scope was advanced from the rectum into the mid transverse colon. Given poor prep, we could not advance the scope beyond this point. It was a poor examination. We could not evaluate the colonic mucosa. There was full of stool. We did not see any active bleeding. No bright red or black tarry stool was seen in the colon. Again, examination is extremely limited. Retroflexion of rectum was done, but it was limited again given this quality of prep. SUMMARY OF FINDINGS: 1. Incomplete examination. 2. Internal and external hemorrhoids. RECOMMENDATIONS: Treat for hemorrhoids extensively. The patient will need an outpatient followup for repeat colonoscopy with better prep . There is no evidence of active bleeding at this time. I want to thank Dr. Douglas Olivares for this kind referral. Mario Addison M.D. DR: VISHNU JOB#: [id number] CC: Douglas Olivares M.D.; Fax#: [phone]
--- NOTE | 2019-01-13 17:02 | Internal Med Progress Note ---
Subjective Date of Service: Jan 13, 2019 Physician Name Devin Rojas Attending Physician Douglas Olivares MD Current Medications Medications (Trade) Dose Ordered Sig/Luda Route PRN Reason Start Time Stop Time Status Last Admin Dose Admin Acetaminophen (Tylenol) 650 mg Q4H PRN ORAL fever 01/13/19 16:30 02/11/19 12:29 Al Hydroxide/Mg Hydroxide (Mylanta II) 30 ml Q6H PRN ORAL dyspepsia 01/13/19 18:30 02/11/19 12:29 Dextrose (Dextrose 50%) 25 ml Q30M PRN IV Hypoglycemia 01/13/19 16:00 02/11/19 12:29 Dextrose (Dextrose 50%) 50 ml Q30M PRN IV Hypoglycemia 01/13/19 16:00 02/11/19 12:29 Diphenhydramine HCl (Benadryl) 25 mg Q6H PRN ORAL Itching/Pruritis 01/13/19 18:30 02/11/19 12:29 Hydrocortisone (Anusol HC) 1 supp TWICE A DAY RECTAL 01/13/19 18:00 02/12/19 17:59 Ondansetron HCl (Zofran) 4 mg Q6H PRN IVP Nausea & Vomiting 01/13/19 18:30 02/11/19 12:29 Sodium Chloride 1,000 ml @ 75 mls/hr [id number] IV 01/13/19 16:00 02/11/19 12:44 Temazepam (Restoril) 15 mg HSPRN PRN ORAL Insomnia 01/13/19 16:00 01/20/19 15:59 Allergies: Coded Allergies: No Known Allergies (Unverified , 12/16/18) ROS Limited/Unobtainable: No Constitutional: Reports: no symptoms HEENT: Reports: no symptoms Cardiovascular: Reports: no symptoms Respiratory: Reports: no symptoms Gastrointestinal/Abdominal: Reports: no symptoms Genitourinary: Reports: no symptoms Neurologic/Psychiatric: Reports: no symptoms Subjective 83 YO F admitted with rectak bleeding. S/P failed colonoscopy 01/13/19. Cover for Donna Pressley-DR Olivares. Objective Last Vital Signs Date Time Temp Pulse Resp B/P (MAP) Pulse Ox O2 Delivery O2 Flow Rate FiO2 01/13/19 16:00 97.9 88 18 172/78 (109) 96 01/13/19 13:47 Room Air 01/13/19 13:39 2 Laboratory Tests Test 01/13/19 06:10 White Blood Count 6.1 K/UL (4.8-10.8) Red Blood Count 3.06 M/UL (4.20-5.40) L Hemoglobin 9.5 G/DL (12.0-16.0) L Hematocrit 28.5 % (37.0-47.0) L Mean Corpuscular Volume 93 FL (80-99) Mean Corpuscular Hemoglobin 31.0 PG (27.0-31.0) Mean Corpuscular Hemoglobin Concent 33.3 G/DL (32.0-36.0) Red Cell Distribution Width 12.6 % (11.6-14.8) Platelet Count 360 K/UL (150-450) Mean Platelet Volume 5.3 FL (6.5-10.1) L Neutrophils (%) (Auto) 59.4 % (45.0-75.0) Lymphocytes (%) (Auto) 27.1 % (20.0-45.0) Monocytes (%) (Auto) 7.2 % (1.0-10.0) Eosinophils (%) (Auto) 4.3 % (0.0-3.0) H Basophils (%) (Auto) 2.1 % (0.0-2.0) H Prothrombin Time 11.0 SEC (9.30-11.50) Prothromb Time International Ratio 1.0 (0.9-1.1) Activated Partial Thromboplast Time 28 SEC (23-33) Sodium Level 140 MMOL/L (136-145) Potassium Level 3.5 MMOL/L (3.5-5.1) Chloride Level 106 MMOL/L (98-107) Carbon Dioxide Level 27 MMOL/L (21-32) Anion Gap 7 mmol/L (5-15) Blood Urea Nitrogen 10 mg/dL (7-18) Creatinine 0.5 MG/DL (0.55-1.30) L Estimat Glomerular Filtration Rate mL/min (>60) Glucose Level 121 MG/DL (74-106) H Calcium Level 8.8 MG/DL (8.5-10.1) Total Bilirubin 0.2 MG/DL (0.2-1.0) Aspartate Amino Transf (AST/SGOT) 12 U/L (15-37) L Alanine Aminotransferase (ALT/SGPT) 11 U/L (12-78) L Alkaline Phosphatase 68 U/L (46-116) Total Protein 5.8 G/DL (6.4-8.2) L Albumin 2.5 G/DL (3.4-5.0) L Globulin 3.3 g/dL Albumin/Globulin Ratio 0.8 (1.0-2.7) L Amylase Level 25 U/L (25-115) Lipase 47 U/L (73-393) L Intake and Output 01/12/19 01/13/19 19:00 07:00 Intake Total 120 ml 330 ml Balance 120 ml 330 ml Intake Oral 120 ml IV Total 330 ml # Voids 3 # Bowel Movements 1 Objective PHYSICAL EXAMINATION: GENERAL: The patient is a well-developed and well-nourished female, in no apparent distress. HEENT: Eyes, pupils are equal and responsive to light and accommodation. Extraocular movements are intact. NECK: Supple without lymphadenopathy. CHEST: Lungs are clear to auscultation bilaterally without wheezes or rales. CARDIOVASCULAR: Regular rhythm and rate. S1-S2 are normal without murmurs, rubs, gallops. ABDOMEN: Soft, nontender, and nondistended. Positive bowel sounds. No evidence of hepatosplenomegaly. Currently, no rebound or guarding noted. EXTREMITIES: Negative for clubbing, cyanosis, or edema. RECTAL/GENITAL: Refused. NEUROLOGIC: Cranial nerves II through XII are grossly intact without focal deficits. Motor strength is 5/5 bilaterally. Deep tendon reflexes are 2+ plantar. Assessment/Plan Problem List: (1) Gastrointestinal hemorrhage (2) HTN (hypertension) Assessment & Plan: Stable (3) Diabetes mellitus, type II Assessment & Plan: Diet controlled (4) Cervical spine tumor (5) Rectal bleed Assessment & Plan: Colonoscopy=poor prep. May require capsule colonoscopy-see GI note Status: not improved Devin Rojas MD Jan 13, 2019 17:02
--- NOTE | 2019-01-13 17:14 | NUR ---
NURSE NOTES: PT WITH ELEVATED BP. IN NO APPARENT DISTRESS AT THIS TIME. PT RESTING IN BED IN SEMI-RICHARDSON'S POSITION. DENIES PAIN OR SOB. RN ELFT MESSAGE FOR DR HUSSEIN REGARDING BP. WILL CONTINUE TO MONITOR.
[2019-01-13] MEDS ORDERED: Hydrocortisone 25mg supp RECTAL SCH (18:00)
[2019-01-13] MEDS: Hydrocortisone 25mg supp RECTAL SCH (18:29)
[2019-01-13] MEDS ORDERED: Mylanta II UD 30ml ORAL PRN (18:30)
--- NOTE | 2019-01-13 18:45 | NUR ---
NURSE NOTES: DR HUSSEIN WITH ORDER FOR PRN CLONIDINE 0.1MG. RN ADMINISTERED CLONIDINE ORDERED.
--- NOTE | 2019-01-13 19:45 | NUR ---
NURSE NOTES:Patient received from JOY Cabrera Patient family at bedside . patient Puerto Rican speaking .LH g#22 NS AT 75 CC/HR Infusing well . patient turned and repositioned every 2 hrs to prevent skin breakdown. Patient denies any pain at this time . no s/s of distress noted . call light within reach . bed in low position at all times . will continue to monitor.
--- NOTE | 2019-01-13 20:00 | NUR ---
HAND-OFF: Report given to Renan RIVERS LVN.
[2019-01-14] VITALS: BP 141/80
[2019-01-14 04:00] VITALS: BP 120/60
[2019-01-14 07:29] LABS: BASOPHILS % (AUTO) 2.1 % (0.0-2.0); HEMATOCRIT 32.1 % (37.0-47.0); HEMOGLOBIN 10.6 G/DL (12.0-16.0); LYMPHOCYTES % (AUTO) 29.8 % (20.0-45.0); MEAN CORPUSCULAR VOLUME 92 FL (80-99); MONOCYTES % (AUTO) 8.6 % (1.0-10.0); NEUTROPHILS % (AUTO) 54.6 % (45.0-75.0); PLATELET COUNT 375 K/UL (150-450); RED BLOOD COUNT 3.47 M/UL (4.20-5.40); RED CELL DISTRIBUTION WIDTH 12.6 % (11.6-14.8); WHITE BLOOD COUNT 4.3 K/UL (4.8-10.8)
[2019-01-14 07:33] LABS: ANION GAP 10 mmol/L (5-15); BLOOD UREA NITROGEN 9 mg/dL (7-18); CALCIUM 9.2 MG/DL (8.5-10.1); CARBON DIOXIDE 23 MMOL/L (21-32); CHLORIDE 104 MMOL/L (98-107); CREATININE 0.5 MG/DL (0.55-1.30); POTASSIUM 3.6 MMOL/L (3.5-5.1); SODIUM 137 MMOL/L (136-145)
--- NOTE | 2019-01-14 07:45 | NUR ---
NURSE NOTES: Received report from ANGEL Humphries. Patient a/o x3-4 lying on the bed. No respiratory distress and no active bleeding noted. Denies any pain at this time. IV patent. Bed in lowest position, call light within reach. Will continue to monitor.
--- NOTE | 2019-01-14 07:50 | NUR ---
HAND-OFF: Report given to Jennyfer LEES RN.patient in stable condition.
[2019-01-14 08:00] VITALS: BP 113/61
[2019-01-14] MEDS: Hydrocortisone 25mg supp RECTAL SCH (10:15)
--- NOTE | 2019-01-14 10:43 | NUR ---
NURSE NOTES: Patient c/o dizziness. INSURANCE CLAIMS REPRESENTATIVE Keith ordered meclizine 25mg q6 prn for dizziness. Noted and carried out.
[2019-01-14] MEDS ORDERED: Meclizine 25mg tab ORAL PRN (10:45)
--- NOTE | 2019-01-14 11:21 | GI Progress Note ---
Assessment/Plan Problems: (1) Rectal bleed ICD Codes: K62.5 - Hemorrhage of anus and rectum SNOMED: 86419255 (2) Gastrointestinal hemorrhage ICD Codes: K92.2 - Gastrointestinal hemorrhage, unspecified SNOMED: 56929912 (3) Esophagitis ICD Codes: K20.9 - Esophagitis, unspecified SNOMED: 45045600 (4) Normocytic anemia ICD Codes: D64.9 - Anemia, unspecified SNOMED: 057156191 Status: stable Status Narrative Discussed with Dr. Addison Assessment/Plan SUMMARY OF FINDINGS: 1. Incomplete examination. 2. Internal and external hemorrhoids. RECOMMENDATIONS: Treat for hemorrhoids extensively. Anusol HC twice daily PRN transfusions PPI Zofran as needed Consider sitz bath Needs repeat outpatient colonoscopy with better prep The patient was seen and examined at bedside and all new and available data was reviewed in the patients chart. I agree with the above findings, impression and plan. (Patient seen earlier today. Signature stamp does not reflect patient encounter time.). - Mario Addison MD Subjective Gastrointestinal/Abdominal: Reports: no symptoms Objective Last 24 Hour Vital Signs Date Time Temp Pulse Resp B/P (MAP) Pulse Ox O2 Delivery O2 Flow Rate FiO2 01/14/19 08:00 98.1 79 19 113/61 (78) 97 01/14/19 04:00 98.8 76 17 120/60 (80) 98 01/14/19 00:00 98.1 79 17 141/80 (100) 97 01/13/19 22:42 170/84 01/13/19 21:00 Room Air 01/13/19 20:00 97.6 87 18 170/84 (112) 97 01/13/19 17:56 172/78 01/13/19 16:00 97.9 88 18 172/78 (109) 96 01/13/19 15:04 68 20 97 01/13/19 13:47 73 20 146/71 100 Room Air 01/13/19 13:41 72 20 99 01/13/19 13:39 67 20 145/70 100 Nasal Cannula 2 01/13/19 13:34 98.0 66 20 152/76 100 Nasal Cannula 2 01/13/19 12:00 68 01/13/19 12:00 97.4 68 23 159/81 (107) 98 Intake and Output 01/13/19 01/14/19 19:00 07:00 Intake Total 710 ml 1345 ml Output Total 0 ml 300 ml Balance 710 ml 1045 ml Intake Oral 360 ml 520 ml IV Total 350 ml 825 ml Output Urine Total 0 ml 300 ml # Voids 2 # Bowel Movements 5 Laboratory Tests Test 01/14/19 06:45 White Blood Count 4.3 K/UL (4.8-10.8) L Red Blood Count 3.47 M/UL (4.20-5.40) L Hemoglobin 10.6 G/DL (12.0-16.0) L Hematocrit 32.1 % (37.0-47.0) L Mean Corpuscular Volume 92 FL (80-99) Mean Corpuscular Hemoglobin 30.7 PG (27.0-31.0) Mean Corpuscular Hemoglobin Concent 33.2 G/DL (32.0-36.0) Red Cell Distribution Width 12.6 % (11.6-14.8) Platelet Count 375 K/UL (150-450) Mean Platelet Volume 5.9 FL (6.5-10.1) L Neutrophils (%) (Auto) 54.6 % (45.0-75.0) Lymphocytes (%) (Auto) 29.8 % (20.0-45.0) Monocytes (%) (Auto) 8.6 % (1.0-10.0) Eosinophils (%) (Auto) 5.0 % (0.0-3.0) H Basophils (%) (Auto) 2.1 % (0.0-2.0) H Sodium Level 137 MMOL/L (136-145) Potassium Level 3.6 MMOL/L (3.5-5.1) Chloride Level 104 MMOL/L (98-107) Carbon Dioxide Level 23 MMOL/L (21-32) Anion Gap 10 mmol/L (5-15) Blood Urea Nitrogen 9 mg/dL (7-18) Creatinine 0.5 MG/DL (0.55-1.30) L Estimat Glomerular Filtration Rate mL/min (>60) Glucose Level 137 MG/DL (74-106) H Calcium Level 9.2 MG/DL (8.5-10.1) Height (Feet): 5 Height (Inches): 5.00 Weight (Pounds): 140 General Appearance: WD/WN, no apparent distress, alert Cardiovascular: normal rate Respiratory/Chest: normal breath sounds, no respiratory distress Abdominal Exam: normal bowel sounds, non tender, soft Extremities: normal range of motion, non-tender Prince Vigil NP Jan 14, 2019 11:21
[2019-01-14 12:00] VITALS: BP 165/76
--- NOTE | 2019-01-14 12:17 | NUR ---
ST NOTE: D/C SUMMARY: FOLLOWED UP PT'S CONDITIONS. DISCUSSED WITH PT'S DAUGHTER, PT TOLERATES THE DIET WITHOUT OVERT S/S OF ASPIRATION. HOWEVER, PT IS HAVING CONSTIPATION AND FEELING DIZZINESS. MEDS WERE GIVEN. EDUCATED PT'S DAUGHTER RE: ASPIRATION PRECAUTIONS. D/C FROM SKILLED ST SERVICE. PLEASE RE-ORDER IF THERE IS ANY CHANGE OF CONDITIONS.
--- NOTE | 2019-01-14 14:48 | NUR ---
CASE MANAGEMENT:REVIEW 01/14/19 SI: LGIB S/P COLONOSCOPY ~ INTERNAL/EXTERNAL HEMORRHOIDS 98.5 79 18 165/76 95% ON RA H/H-10.6/32.1 GLUCOSE+137 IS: ANUSOL AL BID MECLIZINE PO Q6HRS PRN IVF@75/HR : MED/SURG STATUS 3 EAST
--- NOTE | 2019-01-14 15:38 | Pulmonology Progress Note ---
Assessment/Plan Problems: (1) Rectal bleed (2) HTN (hypertension) (3) Obesity (4) Diabetes mellitus, type II (5) Cervical spine tumor (6) Incontinence Assessment/Plan tolerating feeding iv fluids GI evaluation prbc prn check h/h daily, stable so far sliding scale insulin coverage dvt prophylaxis. Subjective ROS Limited/Unobtainable: No Constitutional: Reports: no symptoms HEENT: Repors: no symptoms Respiratory: Reports: no symptoms, wheezing Allergies: Coded Allergies: No Known Allergies (Unverified , 12/16/18) Objective Last 24 Hour Vital Signs Date Time Temp Pulse Resp B/P (MAP) Pulse Ox O2 Delivery O2 Flow Rate FiO2 01/14/19 13:39 165/76 01/14/19 12:00 98.5 79 18 165/76 (105) 95 01/14/19 09:00 Room Air 01/14/19 08:00 98.1 79 19 113/61 (78) 97 01/14/19 04:00 98.8 76 17 120/60 (80) 98 01/14/19 00:00 98.1 79 17 141/80 (100) 97 01/13/19 22:42 170/84 01/13/19 21:00 Room Air 01/13/19 20:00 97.6 87 18 170/84 (112) 97 01/13/19 17:56 172/78 01/13/19 16:00 97.9 88 18 172/78 (109) 96 Intake and Output 01/13/19 01/14/19 19:00 07:00 Intake Total 710 ml 1345 ml Output Total 0 ml 300 ml Balance 710 ml 1045 ml Intake Oral 360 ml 520 ml IV Total 350 ml 825 ml Output Urine Total 0 ml 300 ml # Voids 2 # Bowel Movements 5 General Appearance: WD/WN HEENT: normocephalic Respiratory/Chest: chest wall non-tender, lungs clear Cardiovascular: normal peripheral pulses, regular rhythm Abdomen: normal bowel sounds, non distended Extremities: no clubbing Skin: no lesions Laboratory Tests 01/14/19 06:45: White Blood Count 4.3L, Red Blood Count 3.47L, Hemoglobin 10.6L, Hematocrit 32.1L, Mean Corpuscular Volume 92, Mean Corpuscular Hemoglobin 30.7, Mean Corpuscular Hemoglobin Concent 33.2, Red Cell Distribution Width 12.6, Platelet Count 375, Mean Platelet Volume 5.9L, Neutrophils (%) (Auto) 54.6, Lymphocytes ( %) (Auto) 29.8, Monocytes (%) (Auto) 8.6, Eosinophils (%) (Auto) 5.0H, Basophils (%) (Auto) 2.1H, Sodium Level 137, Potassium Level 3.6, Chloride Level 104, Carbon Dioxide Level 23, Anion Gap 10, Blood Urea Nitrogen 9, Creatinine 0.5L, Estimat Glomerular Filtration Rate , Glucose Level 137H, Calcium Level 9.2 Current Medications Medications (Trade) Dose Ordered Sig/Luda Route PRN Reason Start Time Stop Time Status Last Admin Dose Admin Acetaminophen (Tylenol) 650 mg Q4H PRN ORAL fever 01/13/19 16:30 02/11/19 12:29 Al Hydroxide/Mg Hydroxide (Mylanta II) 30 ml Q6H PRN ORAL dyspepsia 01/13/19 18:30 02/11/19 12:29 Clonidine HCl (Catapres Tab) 0.1 mg Q4H PRN ORAL For High Blood Pressure 01/13/19 17:30 02/12/19 17:29 01/14/19 13:39 Dextrose (Dextrose 50%) 25 ml Q30M PRN IV Hypoglycemia 01/13/19 16:00 02/11/19 12:29 Dextrose (Dextrose 50%) 50 ml Q30M PRN IV Hypoglycemia 01/13/19 16:00 02/11/19 12:29 Diphenhydramine HCl (Benadryl) 25 mg Q6H PRN ORAL Itching/Pruritis 01/13/19 18:30 02/11/19 12:29 Hydrocortisone (Anusol HC) 25 mg TWICE A DAY RECTAL 01/14/19 18:00 02/12/19 17:59 Meclizine HCl (Antivert) 25 mg Q6H PRN ORAL for dizziness 01/14/19 10:45 02/13/19 10:44 01/14/19 11:04 Ondansetron HCl (Zofran) 4 mg Q6H PRN IVP Nausea & Vomiting 01/13/19 18:30 02/11/19 12:29 Sodium Chloride 1,000 ml @ 75 mls/hr [id number] IV 01/13/19 16:00 02/11/19 12:44 01/14/19 01:17 Temazepam (Restoril) 15 mg HSPRN PRN ORAL Insomnia 01/13/19 16:00 01/20/19 15:59 01/13/19 22:43 Anival Tolentino MD Jan 14, 2019 15:38
[2019-01-14 16:00] VITALS: BP 169/81
--- NOTE | 2019-01-14 16:15 | Internal Med Progress Note ---
Subjective Physician Name Douglas Olivares Attending Physician Douglas Olivares MD Current Medications Medications (Trade) Dose Ordered Sig/Luda Route PRN Reason Start Time Stop Time Status Last Admin Dose Admin Acetaminophen (Tylenol) 650 mg Q4H PRN ORAL fever 01/13/19 16:30 02/11/19 12:29 Al Hydroxide/Mg Hydroxide (Mylanta II) 30 ml Q6H PRN ORAL dyspepsia 01/13/19 18:30 02/11/19 12:29 Clonidine HCl (Catapres Tab) 0.1 mg Q4H PRN ORAL For High Blood Pressure 01/13/19 17:30 02/12/19 17:29 01/14/19 13:39 Dextrose (Dextrose 50%) 25 ml Q30M PRN IV Hypoglycemia 01/13/19 16:00 02/11/19 12:29 Dextrose (Dextrose 50%) 50 ml Q30M PRN IV Hypoglycemia 01/13/19 16:00 02/11/19 12:29 Diphenhydramine HCl (Benadryl) 25 mg Q6H PRN ORAL Itching/Pruritis 01/13/19 18:30 02/11/19 12:29 Hydrocortisone (Anusol HC) 25 mg TWICE A DAY RECTAL 01/14/19 18:00 02/12/19 17:59 Meclizine HCl (Antivert) 25 mg Q6H PRN ORAL for dizziness 01/14/19 10:45 02/13/19 10:44 01/14/19 11:04 Ondansetron HCl (Zofran) 4 mg Q6H PRN IVP Nausea & Vomiting 01/13/19 18:30 02/11/19 12:29 Sodium Chloride 1,000 ml @ 75 mls/hr [id number] IV 01/13/19 16:00 02/11/19 12:44 01/14/19 01:17 Temazepam (Restoril) 15 mg HSPRN PRN ORAL Insomnia 01/13/19 16:00 01/20/19 15:59 01/13/19 22:43 Allergies: Coded Allergies: No Known Allergies (Unverified , 12/16/18) Subjective Awake, alert, responsive, no chest pain, no shortness of breath, daughter is at the bedside. Objective Last Vital Signs Date Time Temp Pulse Resp B/P (MAP) Pulse Ox O2 Delivery O2 Flow Rate FiO2 01/14/19 13:39 165/76 01/14/19 12:00 98.5 79 18 95 01/14/19 09:00 Room Air 01/13/19 13:39 2 Laboratory Tests Test 01/14/19 06:45 White Blood Count 4.3 K/UL (4.8-10.8) L Red Blood Count 3.47 M/UL (4.20-5.40) L Hemoglobin 10.6 G/DL (12.0-16.0) L Hematocrit 32.1 % (37.0-47.0) L Mean Corpuscular Volume 92 FL (80-99) Mean Corpuscular Hemoglobin 30.7 PG (27.0-31.0) Mean Corpuscular Hemoglobin Concent 33.2 G/DL (32.0-36.0) Red Cell Distribution Width 12.6 % (11.6-14.8) Platelet Count 375 K/UL (150-450) Mean Platelet Volume 5.9 FL (6.5-10.1) L Neutrophils (%) (Auto) 54.6 % (45.0-75.0) Lymphocytes (%) (Auto) 29.8 % (20.0-45.0) Monocytes (%) (Auto) 8.6 % (1.0-10.0) Eosinophils (%) (Auto) 5.0 % (0.0-3.0) H Basophils (%) (Auto) 2.1 % (0.0-2.0) H Sodium Level 137 MMOL/L (136-145) Potassium Level 3.6 MMOL/L (3.5-5.1) Chloride Level 104 MMOL/L (98-107) Carbon Dioxide Level 23 MMOL/L (21-32) Anion Gap 10 mmol/L (5-15) Blood Urea Nitrogen 9 mg/dL (7-18) Creatinine 0.5 MG/DL (0.55-1.30) L Estimat Glomerular Filtration Rate mL/min (>60) Glucose Level 137 MG/DL (74-106) H Calcium Level 9.2 MG/DL (8.5-10.1) Intake and Output 01/13/19 01/14/19 19:00 07:00 Intake Total 710 ml 1345 ml Output Total 0 ml 300 ml Balance 710 ml 1045 ml Intake Oral 360 ml 520 ml IV Total 350 ml 825 ml Output Urine Total 0 ml 300 ml # Voids 2 # Bowel Movements 5 Objective General: No acute distress, awake and alert HEENT: NCAT, sclera anicteric, PERRL, EOMI. Neck: Supple, no significant jugular venous distention, Lungs: Good inspiratory effort, no Wheeze or Rales. Heart: Regular rate and rhythm, normal S1/S2, no murmur. Abdomen: soft, nontender, nondistended. Normoactive bowel sounds, obesity, / Rectal: Refused and deferred. Extremities: No Cyanosis , clubbing or edema. Neuro: A&O x 3, Able to move all extremities Skin: warm, no rash. Psych: Normal mood and affect Assessment/Plan Assessment/Plan 1. Rectal bleeding. 2. Hypertension. 3. Diabetes type 2. 4. History of cervical spine tumor. TREATMENT: 1. Rectal bleeding. A Gastroenterology consultation has been obtained with Dr. Mario Addison. The patient has been started empirically on Protonix. We will follow recommendations of Gastroenterology. 2. Hypertension. Continue amlodipine as above. 3. Diabetes. Monitor blood glucose level. 4. Cervical spine tumor. The patient is status post resection. Plan: Consider to discharge home today follow-up with the primary doctor as outpatient within 1 week. Discussed with the daughter at the bedside extensively. Considered repeat colonoscopy as outpatient when his better preparation. Douglas Olivares MD Jan 14, 2019 16:15
--- NOTE | 2019-01-14 16:44 | NUR ---
*-* INSURANCE *-* ALL CLINICALS,REVIEW AND INTERQUAL HAVE BEEN FAXED TO: [employer] FAX F/S AND CLINICALS TO [phone].
--- NOTE | 2019-01-14 16:47 | NUR ---
*-* DISCHARGE PLANNING *-* PATIENT HAS BEEN REFERRED TO: [facility]ERE[facility]ODRIGE[facility] F:[phone]
--- NOTE | 2019-01-14 17:00 | NUR ---
NURSE NOTES: Patient in stable condition and will be discharged soon.
[2019-01-14 17:27] VITALS: BP 169/81
[2019-01-14] MEDS ORDERED: Hydrocortisone 25mg supp RECTAL SCH (18:00)
--- NOTE | 2019-01-14 18:00 | NUR ---
NURSE NOTES: Discharge instruction was given. Belongings checked with the patient.
--- NOTE | 2019-01-14 20:10 | NUR ---
NURSE NOTES: IV removed and discharged with ambulance in stable condition.
--- NOTE | 2019-01-14 21:00 | Consultation ---
DATE OF CONSULTATION: 01/14/2019 CONSULTING PHYSICIAN: ATTENDING PHYSICIAN: Douglas Olivares M.D. REASON FOR CONSULTATION: Pressure ulcer prevention and skin check. HISTORY OF PRESENT ILLNESS: This is an 83-year-old female, who was admitted to the hospital for rectal bleeding. She is unable to turn on her own and she is incontinent. The patient does not have sensation of her heels. PAST MEDICAL HISTORY: Type 2 diabetes and hypertension. MEDICATIONS: Clonidine, hydrocortisone, ondansetron/Zofran, Restoril, Mylanta, Tylenol, amlodipine, baclofen, Cipro, loperamide, losartan, tramadol, tamsulosin. REVIEW OF SYSTEMS: I was able to obtain review of systems through electronic medical record and also speaking with the patient. The patient denies any weight loss or weight gain or any fevers. HEENT: The patient has no headaches or Ear, Nose, Throat pain. CARDIOVASCULAR: The patient has no chest pain. CHEST: The patient has no shortness of breath. ABDOMEN: The patient has had recent rectal bleeding. PHYSICAL EXAMINATION: VITAL SIGNS: The patient is afebrile with stable vitals. GENERAL: The patient is in no acute distress. She is alert. HEENT: Extraocular movements are intact. EXTREMITIES: Negative for clubbing, cyanosis, or edema. The patient has decreased sensation on her heels. ASSESSMENT: This is an 83-year-old, female with type 2 diabetes with recent rectal bleeding. She is unable to turn on her home. She appears to be incontinent. RECOMMENDATIONS: 1. Monitor for and manage friction and shear. 2. Perform weekly skin checks. 3. Assess condition of the mattress/pressure reduction surface. 4. Keep linen dry and wrinkle free. 5. Moisture skin daily. 6. Consider bowel and bladder program including placing barrier cream on her buttocks. 7. Float heels off the mattress. 8. Nutritional consult to ensure adequate nutritional needs and monitor laboratories. 9. Turn and reposition q.2 hours. Katerina Chung M.D. DR: Maribel JOB#: [id number] CC: VANESSA
--- NOTE | 2019-01-17 15:25 | Discharge Summary ---
Discharge Summary Discharge Summary _ DATE OF ADMISSION: 01/12/2019 DATE OF DISCHARGE: 01/14/2019 DISCHARGED BY: REASON FOR ADMISSION: 83 years old female with past medical history of hypertension, diabetes, brain tumor ,status post removal in 2013, presented to emergency department from home due to episode of rectal bleeding. Upon evaluation hemoglobin 10.9 ,hematocrit 33.7, no leukocytosis ,chemistry unremarkable ,glucose 194 . Albumin 3.0 . Patient was admitted for further management. CONSULTANTS: pulmonary Dr. Tolentino GI specialist Dr. Addison plastic surgeon Dr. Dinero HOSPITAL COURSE: Patient admitted , initially was kept n.p.o. and started on IV hydration and Protonix. GI consult was requested. Patient undergone colonoscopy on , however due to poor preparation examination was incomplete. Study found internal and external hemorrhoids. GI recommended outpatient follow-up to repeat colonoscopy with better preparation. No evidence of active bleeding. Patient started on treatment for external hemorrhoids with both suppository twice a day and as needed. Hemoglobin and hematocrit were closely monitored, remained at baseline Prior to discharge hemoglobin 10.6, hematocrit 32.1. Anemia workup revealed anemia of chronic disease. No need for transfusion. Blood pressure was managed with current medication regimen /calcium channel debra and remained stable. Renal parameters and electrolytes were closely monitored. Electrolytes corrected as needed and nephrotoxins were avoided. Bedside swallow evaluation revealed no overt signs and symptoms of aspiration. Possibly some aspiration risk due to history of brain tumor. For quality of life patient started on sof diet e with thin liquids diet with aspiration precaution and supervision. Patient was able to tolerate diet. Plastic surgeon seen the patient for pressure ulcer prevention and skin check. Recommendation were provided regarding weekly skin checks, keep clean and dry and wrinkled free sheets, assess condition of the mattresses and pressure reduction surfaces daily, moisturize skin daily , consider bowel and bladder program including placing barrier cream on buttock area, float heels, turn and reposition every 2 hours, and nutritional support to ensure adequate nutrition. Blood sugar was closely monitored and remained stable. PPI continued. Consider sitz baths at home. Bowel regimen instituted. No further episodes of rectal bleeding . Patient was stable for discharge home. FINAL DIAGNOSES: Rectal bleeding Normocytic anemia status post EGD Internal and external hemorrhoids Hypertension Diabetes mellitus type 2 History of brain tumor DISCHARGE MEDICATIONS: See Medication Reconciliation list. DISCHARGE INSTRUCTIONS: Patient was discharged home. Follow up with primary care provider in one week. Repeat outpatient colonoscopy with better preparation as recommended by GI specialist I have been assigned to dictate discharge summary for this account. I was not involved in the patient's management. Lupe Fong NP Jan 17, 2019 15:25
== END 2019-01-14 20:10 | disposition home or self-care (01) | DRG 253 ==
LOC: EMR 01-12 03:04 → 2E 01-12 03:19 → EDBEDREQ 01-12 04:27 → SDSOVERFLO 01-13 10:00 → 2E 01-13 10:02 → 3E 01-13 15:50
PROC: 0DJD8ZZ Inspection of Lower Intestinal Tract, Via Natural or Artificial Opening Endoscopic (ICD-10-PCS; principal; 2019-01-13 13:19)
DX: K92.2 Gastrointestinal hemorrhage, unspecified (principal); D63.8 Anemia in other chronic diseases classified elsewhere; E11.9 Type 2 diabetes mellitus without complications; E66.9 Obesity, unspecified; I10 Essential (primary) hypertension; K64.4 Residual hemorrhoidal skin tags; K64.8 Other hemorrhoids; R32 Unspecified urinary incontinence; K20.9 Esophagitis, unspecified
CPT/HCPCS: 36415; 80048; 80053; 82150; 82962; 83540; 83550; 83690; 85025; 85610; 85730; 86850; 86900; 86901; 93005; 93970; 94003; 94150; 96365; 96375; 99285

== ENCOUNTER → 2019-07-02 | Emergency (ER) | payer MEDICAID ==
[~2019-07-02] VITALS: Ht 162.6 cm; Wt 90.7 kg
[~2019-07-02] MED LIST changes: +ACETAMINOPHEN-1 EAC1 ORAL; +IBUPROFEN600 MG ORAL; +Ketorolac 30mg Inj IM ONE; +Tylenol #3 tab (300mg/30mg) ORAL ONE
[2019-07-02 20:14] VITALS: BP 11/69
--- NOTE | 2019-07-02 21:05 | Emergency Room Report ---
History of Present Illness General Chief Complaint: Lower Extremity Injury Source: Patient Present Illness HPI 83-year-old female with history of diabetes, hypertension, osteoarthritis, brought in by the paramedics complaining of pain over her right knee after a fall today. Patient fell on her right hip however is complaining of a 10 out of 10 pain in the right knee with radiation. Has not taken medication for pain yet. Denies tingling numbness. Denies calf tenderness. Patient's right knee is deformed and shifted laterally. Significant swelling noted on her patella. Denies chest pain, shortness of breath, palpitation, abdominal pain, nausea vomiting. Patient is coming from her home and her daughter is her caregiver. Denies head trauma loss of consciousness. Allergies: Coded Allergies: No Known Allergies (Unverified , 12/16/18) Patient History Past Medical History: see triage record Past Surgical History: unable to obtain Pertinent Family History: none Now: No Immunizations: UTD Reviewed Nursing Documentation: PMH: Agreed; PSxH: Agreed Nursing Documentation-PMH Hx Cardiac Problems: Yes - ANEMIA Hx Hypertension: Yes Hx Diabetes: Yes Hx Cancer: Yes - brain tumor Hx Gastrointestinal Problems: Yes Hx Neurological Problems: Yes - Brain tumor removed Nov 2013 Review of Systems All Other Systems: negative except mentioned in HPI Physical Exam Vital Signs Date Time Temp Pulse Resp B/P (MAP) Pulse Ox O2 Delivery O2 Flow Rate FiO2 07/02/19 20:14 98.2 89 18 11/69 (50) 97 Room Air Sp02 EP Interpretation: reviewed, normal General Appearance: alert, GCS 15, non-toxic, moderate distress Head: normocephalic, atraumatic Eyes: bilateral eye normal inspection, bilateral eye PERRL ENT: hearing grossly normal, normal pharynx, no angioedema, normal voice Neck: full range of motion, supple/symm/no masses Respiratory: chest non-tender, lungs clear, normal breath sounds, speaking full sentences Cardiovascular #1: regular rate, rhythm, no edema, no murmur Cardiovascular #2: 2+ dorsalis pedis (R), 2+ dorsalis pedis (L) Gastrointestinal: normal inspection, non tender Genitourinary: no CVA tenderness Musculoskeletal: back normal, swelling - Deformity of the right knee laterally and bony tenderness Neurologic: alert, oriented x3, responsive, motor strength/tone normal, sensory intact, speech normal Psychiatric: judgement/insight normal, memory normal, mood/affect normal, no suicidal/homicidal ideation Skin: no rash Lymphatic: no adenopathy Procedures Splinting Splinting : Consent: Verbal Location: Right knee Pre-Made Type: velcro Pre-Proc Neuro Vasc Exam: normal Patient Tolerated: Well Complications: None Medical Decision Making PA Attestation All my diagnosis and treatment plans were reviewed ad discussed with my supervising physician Dr. Jean Diagnostic Impression: Primary Impression: Right patella fracture Additional Impression: Contusion of right hip ER Course 83-year-old female with history of diabetes, hypertension, osteoarthritis, brought in by the paramedics complaining of pain over her right knee after a fall today. Patient fell on her right hip however is complaining of a 10 out of 10 pain in the right knee with radiation. Has not taken medication for pain yet. Denies tingling numbness. Denies calf tenderness. Patient's right knee is deformed and shifted laterally. Significant swelling noted on her patella. Denies chest pain, shortness of breath, palpitation, abdominal pain, nausea vomiting. Patient is coming from her home and her daughter is her caregiver. Denies head trauma loss of consciousness. Ddx considered but are not limited to: Knee sprain, strain, fracture, contusion , meniscus tear injury Vital signs: are WNL, pt. is afebrile H&PE are most consistent with: Right knee fracture and contusion of right hip ORDERS: Knee x-ray, right hip x-ray, ibuprofen, Toradol, Tylenol 3 ER intervention: Tylenol 3 and Toradol DISCHARGE: At this time pt. is stable for d/c to home. Will provide printed patient care instructions, and any necessary prescriptions. Care plan and follow up instructions have been discussed with the patient prior to discharge. After talking to Dr. Adkins patient decides to go home as he does not want to be admitted and do preop examination patient to follow-up with leasing specialist. Other X-Ray Diagnostic Results Other X-Ray Diagnostic Results #1: X-Ray ordered: Right knee x-ray # of Views/Limited Vs Complete: 3 View Indication: Swelling EP Interpretation: Yes PA Xray: Interpretation reviewed, by supervising MD, and agrees with findings. Interpretation: other - Right patella fracture Impression: Other - Right patella fracture Electronically Signed by: Desirae Mireles PA-C Other X-Ray Diagnostic Results #2: X-Ray ordered: Right hip and pelvis # of Views/Limited Vs Complete: 3 View Indication: Pain EP Interpretation: Yes CÉSAR Xray: Interpretation reviewed, by supervising MD, and agrees with findings. Interpretation: no dislocation, no soft tissue swelling, no fractures Impression: No acute disease Electronically Signed by: Desirae Mireles PA-C Last Vital Signs Date Time Temp Pulse Resp B/P (MAP) Pulse Ox O2 Delivery O2 Flow Rate FiO2 07/02/19 20:14 98.2 89 18 11/69 (50) 97 Room Air Disposition: HOME, SELF-CARE Condition: Stable Scripts Ibuprofen* (MOTRIN*) 600 Mg Tablet 600 MG ORAL Q6H PRN for For Pain, #30 TAB Prov: Desirae Barker 07/02/19 Acetaminophen With Codeine (T#3) (TYLENOL #3 TAB*) Y Tab 1 TAB ORAL Q8H PRN for For Pain for 3 Days, #10 TAB Prov: Desirae Barker 07/02/19 Patient Instructions: Contusion, [id number], Knee Fracture, Adult Additional Instructions: Follow-up with leasing specialist take medication as directed if worsening symptoms return to the emergency room Desirae Barker Jul 02, 2019 21:05
--- NOTE | 2019-07-02 21:32 | Diagnostic Imaging Report ---
EXAM: XR Right Hip With Pelvis When Performed, 2 or 3 Views CLINICAL HISTORY: TRAUMA TECHNIQUE: Two or three views of the right hip, with pelvis when performed. COMPARISON: No relevant prior studies available. FINDINGS: Bones/joints: Right superior and inferior pubic ramus fractures which appear to be chronic, and healed. Some component of reinjury cannot be definitively excluded with these radiographs due to extreme osteopenia. No dislocation. Soft tissues: Unremarkable. Other findings: ASVD. Large stool burden. IMPRESSION: 1. Right superior and inferior pubic ramus fractures which appear to be chronic, and healed. Some component of reinjury cannot be definitively excluded with these radiographs due to extreme osteopenia. 2. If there is continued concern for acute osseous injury to the pelvis or femurs, recommend cross-sectional imaging.
--- NOTE | 2019-07-02 21:33 | Diagnostic Imaging Report ---
EXAM: XR Right Knee, 3 views CLINICAL HISTORY: TRAUMA TECHNIQUE: Three views of the right knee. COMPARISON: No relevant prior studies available. FINDINGS: Bones/joints: Comminuted distal femoral metadiaphysis fracture with at least mild displacement. Further evaluation extremely limited due to severe osteopenia. Joint effusion. Severe tricompartmental osteoarthritis. No dislocation. Soft tissues: Unremarkable. IMPRESSION: 1. Comminuted distal femoral metadiaphysis fracture with at least mild displacement. 2. Further evaluation extremely limited due to severe osteopenia. 3. Given degree of osteopenia, MRI may be preferred over CT to evaluate for additional subtle fractures. 4. Joint effusion.
== END | disposition home or self-care (01) ==
LOC: EDUNIT# 20:14 → EDBD 20:26 → EMR 20:50
DX: S82.001A Unspecified fracture of right patella, initial encounter for closed fracture (principal); S70.01XA Contusion of right hip, initial encounter; E11.9 Type 2 diabetes mellitus without complications; I10 Essential (primary) hypertension; Z85.89 Personal history of malignant neoplasm of other organs and systems; M19.90 Unspecified osteoarthritis, unspecified site; W18.30XA Fall on same level, unspecified, initial encounter; Y92.9 Unspecified place or not applicable
CPT/HCPCS: 29505; 73502; 73562; 96372; 99284; J1885